=== PATIENT | female | born 1950 | race Hispanic/Latino ===

== ENCOUNTER 2017-06-12 14:22 | Emergency (ER) | payer OTHER ==
[2017-06-12] MEDS ORDERED: ALBUTEROL 2.5 MG/3 ML NEB SOL ONE (15:21)
[2017-06-12] MEDS ORDERED: IPRATROPIUM BROM 0.5MG/2.5ML ONE (15:21)
[2017-06-12 15:58] LABS: Absolute Lymphocytes (CBC) 1.6 K/uL (0.7-4.9); Absolute Monocytes 0.4 K/uL (0.1-1.3); Absolute Neutrophil 2.8 K/uL (1.8-8.0); Basophils % 0.6 % (0-1.3); Eosinophils % 2.7 % (0-4.4); Hematocrit 40.7 % (36.0-45.0); Lymphocytes % 32.3 % (15.3-44.8); MCH 30.6 pg (27.0-35.0); MCV 91.5 fL (80-100); MPV 8.4 fL (7.6-11.3); Monocytes % 8.8 % (3.3-12.3); RBC Red Blood Cell Count 4.44 M/uL (3.86-4.86)
[2017-06-12 16:00] LABS: Potassium 4.2 mEq/L (3.6-5.0)
--- NOTE | 2017-06-12 16:24 | RAD REPORT ---
EXAM DESCRIPTION: RAD - Chest Pa And Lat (2 Views) - 06/12/2017 4:02 pm CLINICAL HISTORY: Cough, shortness of breath COMPARISON: June 2015 TECHNIQUE: PA and lateral views of the chest were obtained. FINDINGS: The lungs are clear. Lung markings are similar to comparison. Heart size is normal and ce ntral vasculature is within normal limits. No pleural effusion or pneumothorax seen. No acute bony finding noted. No aortic abnormality. IMPRESSION: No acute cardiopulmonary process. No suspicious change from 2016.
--- NOTE | 2017-06-12 16:37 | ER ---
Nurse's Notes [facility] Name: Elizabeth Degroot Age: 67 yrs Sex: Female : 1950 Arrival Date: 06/12/2017 Time: 14:24 Bed 14 Private MD: Diagnosis: Bronchitis, not specified as acute or chronic Presentation: 06/12 14:46 Presenting complaint: Patient states: " I have been coughing and coughing and I can't ph stop." Pt reports productive cough that began last night and SOB, also reports sore throat, denies fever N/V/D. Transition of care: patient was not received from another setting of care. Onset of symptoms was June 12, 2017. Initial Sepsis Screen: Does the patient meet any 2 criteria? No. Patient's initial sepsis screen is negative. Does the patient have a suspected source of infection? No. Patient's initial sepsis screen is negative. Care prior to arrival: None. 14:46 Method Of Arrival: Ambulatory ph 14:46 Acuity: MARTIN 3 ph Historical: - Allergies: 14:49 NKDA; ph - PMHx: 14:49 Hyperlipidemia; Osteoporosis; ph - PSHx: 14:49 D \\T\\ C; Tubal ligation; ph - Immunization history:: Adult Immunizations unknown. - Social history:: Smoking status: Patient/guardian denies using tobacco. Screenin:57 Abuse screen: Denies threats or abuse. Denies injuries from another. Nutritional ph screening: No deficits noted. Tuberculosis screening: No symptoms or risk factors identified. Fall Risk None identified. Assessment: 15:00 General: Appears in no apparent distress. comfortable, obese, well groomed, Behavior is ph calm, cooperative, appropriate for age, Denies fever. Pain: Denies pain. Neuro: Level of Consciousness is awake, alert, obeys commands, Oriented to person, place, time, situation. Cardiovascular: Capillary refill < 3 seconds Patient's skin is warm and dry. Respiratory: Reports shortness of breath at rest cough that is productive, Airway is patent Respiratory effort is even, unlabored, Respiratory pattern is regular, symmetrical, Breath sounds with wheezes in right lower lobe. GI: No signs and/or symptoms were reported involving the gastrointestinal system. EENT: Reports pain when swallowing. Derm: Skin is intact, is healthy with good turgor, Skin is pink, warm \\T\\ dry. Musculoskeletal: Circulation, motion, and sensation intact. Range of motion: intact in all extremities. 16:00 Reassessment: Patient appears in no apparent distress at this time. Patient and/or ph family updated on plan of care and expected duration. Pain level reassessed. Patient is alert, oriented x 3, equal unlabored respirations, skin warm/dry/pink. Pt resting quietly, awaiting lab and CXR results. 17:11 Reassessment: Patient appears in no apparent distress at this time. Patient and/or ph family updated on plan of care and expected duration. Pain level reassessed. Patient is alert, oriented x 3, equal unlabored respirations, skin warm/dry/pink. Pt discharged home with family. Vital Signs: 14:48 BP 142 / 70; Pulse 78; Resp 22; Temp 97.8; Pulse Ox 93% on R/A; ph 16:15 BP 138 / 76; Pulse 74; Resp 18; Temp 98.1; Pulse Ox 94% on R/A; ph 17:00 BP 142 / 67; Pulse 72; Resp 18; Temp 97.4(TE); Pulse Ox 94% on R/A; ph ED Course: 14:24 Patient arrived in ED. as 14:46 Rehana Matthews, VALERIE is Primary Nurse. ph 14:47 Triage completed. ph 14:51 [facility]ens[facility]-C [facility]. kb 14:51 James Turner MD is Attending Physician. kb 14:52 Arm band placed on. ph 15:32 Initial lab(s) drawn, by wa, sent to lab. Inserted saline lock: 22 gauge in right mh5 forearm, using aseptic technique. Blood collected. 15:33 Group A Streptococcus Rapid Sc Sent. mh5 15:33 Strep Sent. mh5 15:33 Basic Metabolic Panel Sent. 5 15:33 CBC with Diff Sent. mh5 15:34 Strep swab sent to lab. mh5 15:56 Patient moved to radiology via wheelchair. mh1 15:58 Patient has correct armband on for positive identification. Placed in gown. Bed in low ph position. Call light in reach. Side rails up X 1. Pulse ox on. NIBP on. Warm blanket given. 15:58 No provider procedures requiring assistance completed. ph 16:01 X-ray completed. Patient tolerated procedure well. Patient moved back from radiology. 1 16:01 Chest Pa And Lat (2 Views) XRAY In Process Unspecified. EDMS 17:12 IV discontinued, intact, bleeding controlled, No redness/swelling at site. Pressure ph dressing applied. Administered Medications: 15:35 Drug: DuoNeb (3:1) (2.5 mg - 0.5 mg) 3 ml Route: Nebulizer; ph 16:30 Follow up: Response: No adverse reaction ph Outcome: 16:37 Discharge ordered by . monalisa 17:12 Discharged to home ambulatory, with family. ph 17:12 Condition: good 17:12 Discharge instructions given to patient, Instructed on discharge instructions, follow up and referral plans. medication usage, Demonstrated understanding of instructions, follow-up care, medications, Prescriptions given X 2. 17:13 Patient left the ED. Signatures: Dispatcher [employer] EDOH Ivett Hensley, QUINTONC HOGSHEAD HAND-Mary Dalton 1 Carrol Townsend Patricia, RN RN Jonna Townsend [facility]
--- NOTE | 2017-06-12 16:37 | EDPHYS ---
Physician Documentation [facility] Name: Elizabeth Degroot Age: 67 yrs Sex: Female : 1950 Arrival Date: 06/12/2017 Time: 14:24 Bed 14 Private MD: ED Physician James Turner HPI: 06/12 15:23 This 67 yrs old Female presents to ER via Ambulatory with complaints of Cough. kb 15:23 The patient or guardian reports cough, that is intermittent, described as mild, with kb productive sputum, that is white, difficulty breathing. Onset: The symptoms/episode began/occurred 2 day(s) ago. Severity of symptoms: At their worst the symptoms were mild, moderate, in the emergency department the symptoms are unchanged. Modifying factors: The symptoms are alleviated by nothing, the symptoms are aggravated by nothing. Associated signs and symptoms: Pertinent positives: sore throat, Pertinent negatives: chest pain, diarrhea, ear ache, fever, nausea, rhinorrhea, vomiting. The patient has not experienced similar symptoms in the past. The patient has not recently seen a physician. Pt reports cough for 2 days, worse at night. Historical: - Allergies: 14:49 NKDA; ph - PMHx: 14:49 Hyperlipidemia; Osteoporosis; ph - PSHx: 14:49 D \T\ C; Tubal ligation; ph - Immunization history:: Adult Immunizations unknown. - Social history:: Smoking status: Patient/guardian denies using tobacco. ROS: 15:22 Cardiovascular: Negative for chest pain, palpitations, and edema, Abdomen/GI: Negative kb for abdominal pain, nausea, vomiting, diarrhea, and constipation, Back: Negative for injury and pain, MS/Extremity: Negative for injury and deformity, Skin: Negative for injury, rash, and discoloration, Neuro: Negative for headache, weakness, numbness, tingling, and seizure. 15:22 Constitutional: Positive for chills, Negative for body aches, fatigue, fever, malaise, poor PO intake, weight loss. 15:22 Respiratory: Positive for cough, with white sputum, shortness of breath, Negative for dyspnea on exertion, hemoptysis, orthopnea, pleurisy, wheezing. Exam: 15:21 Constitutional: This is a well developed, well nourished patient who is awake, alert, kb and in no acute distress. Head/Face: Normocephalic, atraumatic. Chest/axilla: Normal chest wall appearance and motion. Nontender with no deformity. No lesions are appreciated. Cardiovascular: Regular rate and rhythm with a normal S1 and S2. No gallops, murmurs, or rubs. Normal PMI, no JVD. No pulse deficits. Abdomen/GI: Soft, non-tender, with normal bowel sounds. No distension or tympany. No guarding or rebound. No evidence of tenderness throughout. Skin: Warm, dry with normal turgor. Normal color with no rashes, no lesions, and no evidence of cellulitis. MS/ Extremity: Pulses equal, no cyanosis. Neurovascular intact. Full, normal range of motion. Neuro: Awake and alert, GCS 15, oriented to person, place, time, and situation. Cranial nerves II-XII grossly intact. Motor strength 5/5 in all extremities. Sensory grossly intact. Cerebellar exam normal. Normal gait. 15:21 Respiratory: the patient does not display signs of respiratory distress, Respirations: normal, Breath sounds: wheezing: expiratory that is mild, is heard in the right lower lobe. Vital Signs: 14:48 BP 142 / 70; Pulse 78; Resp 22; Temp 97.8; Pulse Ox 93% on R/A; ph 16:15 BP 138 / 76; Pulse 74; Resp 18; Temp 98.1; Pulse Ox 94% on R/A; ph 17:00 BP 142 / 67; Pulse 72; Resp 18; Temp 97.4(TE); Pulse Ox 94% on R/A; ph MDM: 15:08 Patient medically screened. kb 15:21 Data reviewed: vital signs, nurses notes. Data interpreted: Pulse oximetry: on room air kb is 93 %. Interpretation: acceptable. 16:30 Counseling: I had a detailed discussion with the patient and/or guardian regarding: the kb historical points, exam findings, and any diagnostic results supporting the discharge/admit diagnosis, lab results, radiology results, the need for outpatient follow up, a family practitioner, to return to the emergency department if symptoms worsen or persist or if there are any questions or concerns that arise at home. 06/12 15:12 Order name: CBC with Diff; Complete Time: 16:02 kb 06/12 15:12 Order name: Basic Metabolic Panel; Complete Time: 16:01 kb 06/12 15:12 Order name: Chest Pa And Lat (2 Views) XRAY; Complete Time: 16:30 kb 06/12 15:23 Order name: Strep kb 06/12 15:23 Order name: Group A Streptococcus Rapid Sc; Complete Time: 16:23 EDUT 06/12 16:23 Order name: Throat Culture EDUT 06/12 15:12 Order name: IV Start; Complete Time: 15:33 kb Administered Medications: 15:35 Drug: DuoNeb (3:1) (2.5 mg - 0.5 mg) 3 ml Route: Nebulizer; ph 16:30 Follow up: Response: No adverse reaction ph Disposition: 06/12/17 16:37 Discharged to Home. Impression: Bronchitis, not specified as acute or chronic. - Condition is Stable. - Discharge Instructions: Acute Bronchitis, [id number]. - Prescriptions for Tessalon Perles 100 mg Oral Capsule - take 1 capsule by ORAL route every 8 hours As needed; 15 capsule. Albuterol Sulfate 90 mcg/actuation - inhale 1-2 puff by INHALATION route every 4-6 hours; 1 Inhaler. - Medication Reconciliation Form, Thank You Letter, Antibiotic Education, Prescription Opioid Use form. - Follow up: Emergency Department; When: As needed; Reason: Worsening of condition. Follow up: Private Physician; When: 2 - 3 days; Reason: Recheck today's complaints, Continuance of care, Re-evaluation by your physician. Addendum: 06/16/2017 19:13 Co-signature as Attending Physician, James Turner MD. g s Signatures: Dispatcher [employer] Ivett [place], WYATT MALCOLM-Rehana Barnes RN RN James Viramontes MD MD Corrections: (The following items were deleted from the chart) 06/12 17:13 16:37 06/12/2017 16:37 Discharged to Home. Impression: Bronchitis, not specified as ph acute or chronic. Condition is Stable. Discharge Instructions: Acute Bronchitis, [id number]. Prescriptions for Tessalon Perles 100 mg Oral Capsule - take 1 capsule by ORAL route every 8 hours As needed; 15 capsule, Albuterol Sulfate 90 mcg/actuation - inhale 1-2 puff by INHALATION route every 4-6 hours; 1 Inhaler. and Forms are Medication Reconciliation Form, Thank You Letter, Antibiotic Education, Prescription Opioid Use. Follow up: Emergency Department; When: As needed; Reason: Worsening of condition. Follow up: Private Physician; When: 2 - 3 days; Reason: Recheck today's complaints, Continuance of care, Re-evaluation by your physician. kb
[2017-06-12 17:30] VITALS: BP 138/76; TEMP 98.1; O2SAT 94
== END 2017-06-12 17:13 | disposition home or self-care (01) ==
LOC: ER 14:22
DX: J40 Bronchitis, not specified as acute or chronic (principal)
CPT/HCPCS: 36415; 71046; 80048; 85025; 87070; 87081; 94640; 99284

== ENCOUNTER 2017-10-27 17:42 | Emergency (ER) | payer OTHER ==
[2017-10-27] MEDS ORDERED: HYDROCODONE/APAP 5/325 MG TAB ONE (18:15)
--- NOTE | 2017-10-27 19:38 | RAD REPORT ---
EXAM DESCRIPTION: Van Quinones Left10/27/2017 6:51 pm CLINICAL HISTORY: Left leg pain status post fall FINDINGS: An oblique nondisplaced fracture of the lateral malleolus is suspected best seen on the la teral view. Marked soft tissue swelling is noted. No dislocation is seen
--- NOTE | 2017-10-27 19:38 | RAD REPORT ---
EXAM DESCRIPTION: RAD - Ankle Left 3 View -10/27/2017 6:51 pm CLINICAL HISTORY: Left ankle pain status fall FINDINGS: An oblique nondisplaced fracture of the lateral malleolus is suspected best seen on the la teral view. Marked soft tissue swelling is noted. No dislocation is seen
--- NOTE | 2017-10-27 19:40 | RAD REPORT ---
EXAM DESCRIPTION: RAD - Foot Left 3 View - 10/27/2017 6:51 pm CLINICAL HISTORY: Left Foot pain status post fall FINDINGS: An oblique nondisplaced fracture of the lateral malleolus is suspected best seen on the la teral view. Marked soft tissue swelling is noted. No dislocation is seen
--- NOTE | 2017-10-27 19:57 | ER ---
Nurse's Notes [facility] Name: Elizabeth Degroot Age: 67 yrs Sex: Female : 1950 Arrival Date: 10/27/2017 Time: 17:44 Bed 18 Private MD: Diagnosis: Left Distal Fibular Fracture Presentation: 10/27 17:56 Presenting complaint: Patient states: tripped on steps in garage, rolled left ankle, iw fell to left knee. Transition of care: patient was not received from another setting of care. Onset of symptoms was October 27, 2017. Risk Assessment: Do you want to hurt yourself or someone else? Patient reports no desire to harm self or others. Initial Sepsis Screen: Does the patient meet any 2 criteria? No. Patient's initial sepsis screen is negative. Does the patient have a suspected source of infection? No. Patient's initial sepsis screen is negative. Care prior to arrival: None. 17:56 Method Of Arrival: Wheelchair iw 17:56 Acuity: MARTIN 4 iw Historical: - Allergies: 18:00 NKDA; iw - PMHx: 18:00 Hyperlipidemia; Osteoporosis; iw - PSHx: 18:00 D \T\ C; Tubal ligation; iw - Immunization history:: Adult Immunizations up to date. - Social history:: Smoking status: Patient/guardian denies using tobacco. - Ebola Screening: : Patient negative for fever greater than or equal to 101.5 degrees Fahrenheit, and additional compatible Ebola Virus Disease symptoms Patient denies exposure to infectious person Patient denies travel to an Ebola-affected area in the 21 days before illness onset No symptoms or risks identified at this time. Screenin:04 Abuse screen: Denies threats or abuse. Nutritional screening: No deficits noted. em Tuberculosis screening: No symptoms or risk factors identified. Fall Risk None identified. Assessment: 18:04 General: Appears in no apparent distress. Behavior is calm, cooperative. Pain: iw Complains of pain in left lateral malleolus Pain currently is 8 out of 10 on a pain scale. Neuro: Level of Consciousness is awake, alert, obeys commands, Oriented to person, place, time, situation, Moves all extremities. Full function. Musculoskeletal: Range of motion: limited in left ankle. 19:10 General: Appears in no apparent distress. comfortable, Behavior is calm, cooperative, ao appropriate for age. Pain: Denies pain. Neuro: Level of Consciousness is awake, alert, obeys commands, Oriented to person, place, time, situation, Moves all extremities. Full function Speech is normal. Cardiovascular: Heart tones S1 S2 Capillary refill < 3 seconds Patient's skin is warm and dry. Respiratory: Airway is patent Respiratory effort is even, unlabored, Respiratory pattern is regular, symmetrical. GI: Abdomen is obese. : No signs and/or symptoms were reported regarding the genitourinary system. EENT: No signs and/or symptoms were reported regarding the EENT system. Derm: Skin is intact, Skin is pink, warm \T\ dry. normal, Skin temperature is warm. Musculoskeletal: Circulation, motion, and sensation intact. Range of motion: limited in left ankle. Vital Signs: 18:00 BP 163 / 98; Pulse 62; Resp 16; Temp 98.7; Pulse Ox 96% on R/A; Pain 8/10; iw 19:30 BP 148 / 50; Pulse 64; Resp 16; Pulse Ox 98% on R/A; ao ED Course: 17:44 Patient arrived in ED. rg4 17:54 Bud Mckeon PA is PHCP. jmm 17:54 Alfredito Valle MD is Attending Physician. [facility] 18:00 Triage completed. iw 18:00 Arm band placed on. iw 18:02 Cj Daugherty LVN is Primary Nurse. em 18:04 Patient has correct armband on for positive identification. Bed in low position. Call em light in reach. Adult w/ patient. 18:04 No provider procedures requiring assistance completed. Patient did not have IV access em during this emergency room visit. 18:51 Tib Fib Left XRAY In Process Unspecified. EDMS 18:51 Ankle Left 3 View XRAY In Process Unspecified. EDMS 18:51 Foot Left 3 View XRAY In Process Unspecified. EDMS 19:56 Markell Mac MD is Referral Physician. [facility] Administered Medications: 18:13 Drug: [place] 5 mg-325 mg 1 tabs Route: PO; em 20:27 Follow up: Response: No adverse reaction ao Outcome: 19:56 Discharge ordered by . jmm 20:26 Discharged to home ambulatory. ao 20:26 Condition: stable 20:26 Discharge instructions given to patient, family, Instructed on discharge instructions, follow up and referral plans. Demonstrated understanding of instructions, follow-up care, medications, Prescriptions given X 1. 20:27 Patient left the ED. ao Signatures: Dispatcher [employer] Bud Duron PA PA jmm Munoz, Edgar, TECHNICIAN AUTOMATED EQUIPMENT TECHNICIAN AUTOMATED EQUIPMENT Tamara Padilla, RN RN Jacek Abebe RN RN Noris Maxwell rg4
--- NOTE | 2017-10-27 19:57 | EDPHYS ---
Physician Documentation [facility] Name: Elizabeth Degroot Age: 67 yrs Sex: Female : 1950 Arrival Date: 10/27/2017 Time: 17:44 Bed 18 Private MD: ED Physician Alfredito Valle HPI: 10/27 18:01 This 67 yrs old Female presents to ER via Wheelchair with complaints of Ankle jmm Injury. 18:01 The patient presents with an injury, pain. The complaints affect the left ankle. Onset: jmm The symptoms/episode began/occurred acutely, just prior to arrival. Associated signs and symptoms: Pertinent positives: swelling. Modifying factors: The symptoms are alleviated by elevation of extremity, the symptoms are aggravated by weight bearing. This is a 67 year old female with a history of osteoporosis, HLP, that presents to the ED with left ankle pain and swelling following a fall which occurred earlier today. Patient states she tripped on a step in her garage rolling her left ankle and landing on her left knee. Patient denies other injury. . Historical: - Allergies: 18:00 NKDA; iw - PMHx: 18:00 Hyperlipidemia; Osteoporosis; iw - PSHx: 18:00 D \T\ C; Tubal ligation; iw - Immunization history:: Adult Immunizations up to date. - Social history:: Smoking status: Patient/guardian denies using tobacco. - Ebola Screening: : Patient negative for fever greater than or equal to 101.5 degrees Fahrenheit, and additional compatible Ebola Virus Disease symptoms Patient denies exposure to infectious person Patient denies travel to an Ebola-affected area in the 21 days before illness onset No symptoms or risks identified at this time. ROS: 18:01 Constitutional: Negative for fever, chills, and weight loss, Cardiovascular: Negative jmm for chest pain, palpitations, and edema, Respiratory: Negative for shortness of breath, cough, wheezing, and pleuritic chest pain. 18:01 MS/extremity: Positive for pain, swelling. 18:01 All other systems are negative. Exam: 18:01 Head/Face: atraumatic. Eyes: EOMI, no conjunctival erythema appreciated Chest/axilla: jmm Normal chest wall appearance and motion. Cardiovascular: Regular rate and rhythm. No edema appreciated Respiratory: Normal respirations, no respiratory distress appreciated 18:01 Constitutional: The patient appears in no acute distress, alert, awake. 18:01 Musculoskeletal/extremity: abrasion noted to the superior tibial region, swelling is noted to the left lateral malleolus, full dorsalis pedis pulse, compartments are soft, NVI. 18:01 Skin: abrasion noted to the left lower leg. 18:01 Neuro: Orientation: is normal, Mentation: is normal, Memory: is normal. 18:01 Psych: Behavior/mood is pleasant, cooperative. Vital Signs: 18:00 BP 163 / 98; Pulse 62; Resp 16; Temp 98.7; Pulse Ox 96% on R/A; Pain 8/10; iw 19:30 BP 148 / 50; Pulse 64; Resp 16; Pulse Ox 98% on R/A; ao Procedures: 20:30 Splinting: Splint applied to left ankle using Ortho 3D boot, applied by nurse. Examined jm by me, post splint application: neurovascular intact, 2+ distal pulses palpable, Patient tolerated well. MDM: 17:54 Patient medically screened. [facility] 19:55 Data reviewed: vital signs, nurses notes. Counseling: I had a detailed discussion with [facility] the patient and/or guardian regarding: the historical points, exam findings, and any diagnostic results supporting the discharge/admit diagnosis, radiology results, the need for outpatient follow up, to return to the emergency department if symptoms worsen or persist or if there are any questions or concerns that arise at home. 10/27 17:59 Order name: Tib Fib Left XRAY; Complete Time: 19:44 [facility] 10/27 17:59 Order name: Ankle Left 3 View XRAY; Complete Time: 19:44 [facility] 10/27 17:59 Order name: Foot Left 3 View XRAY; Complete Time: 19:44 [facility] 10/27 19:16 Order name: Ankle Splint: Orthoglass: Posterior; Complete Time: 19:35 [facility] Administered Medications: 18:13 Drug: [place] 5 mg-325 mg 1 tabs Route: PO; em 20:27 Follow up: Response: No adverse reaction ao Disposition: 10/27/17 19:56 Discharged to Home. Impression: Left Distal Fibular Fracture. - Condition is Stable. - Discharge Instructions: Ankle Fracture. - Prescriptions for Tylenol- Codeine #3 300-30 mg Oral Tablet - take 1 tablet by ORAL route every 6 hours As needed; 12 tablet. - Medication Reconciliation Form, Thank You Letter, Antibiotic Education, Prescription Opioid Use form. - Follow up: Markell Mac MD; When: 1 - 2 days; Reason: Recheck today's complaints, Continuance of care, Re-evaluation by your physician. Addendum: 10/30/2017 07:26 Co-signature as Attending Physician, Alfredito Valle MD I agree with the assessment and c knox plan of care. Signatures: Dispatcher [employer] EDAlfredito Tobias MD MD cha Mickail, Joel, PA PA daym Cj Daugherty, SKOOG MACHINE OPERATOR SKOOG MACHINE OPERATOR em Tamara Burk, RN RN iw Jacek Miller RN RN ao Corrections: (The following items were deleted from the chart) 10/27 20:27 19:56 10/27/2017 19:56 Discharged to Home. Impression: Left Distal Fibular Fracture. ao Condition is Stable. Forms are Medication Reconciliation Form, Thank You Letter, Antibiotic Education, Prescription Opioid Use. Follow up: Markell Mac; When: 1 - 2 days; Reason: Recheck today's complaints, Continuance of care, Re-evaluation by your physician. [facility]
[2017-10-27 20:30] VITALS: TEMP 98.7
[2017-10-27 20:31] VITALS: BP 148/50; O2SAT 98
== END 2017-10-27 20:27 | disposition home or self-care (01) ==
LOC: ER 17:42
PROC: 2W3RX1Z Immobilization of Left Lower Leg using Splint (ICD-10-PCS; principal; 2017-10-27)
DX: S82.832A Other fracture of upper and lower end of left fibula, initial encounter for closed fracture (principal); M81.0 Age-related osteoporosis without current pathological fracture; W18.09XA Striking against other object with subsequent fall, initial encounter; Y93.89 Activity, other specified; Y92.008 Other place in unspecified non-institutional (private) residence as the place of occurrence of the external cause
CPT/HCPCS: 99283

== ENCOUNTER 2019-01-22 11:57 | Emergency (ER) | payer OTHER ==
[2019-01-22] MEDS ORDERED: MAGNESIUM CITRATE 300 ML BOT ONE (12:41)
[2019-01-22 12:51] LABS: Absolute Lymphocytes (CBC) 2.2 K/uL (0.7-4.9); Basophils % 0.5 % (0-1.3); Hematocrit 39.9 % (36.0-45.0); Lymphocytes % 42.1 % (15.3-44.8); MPV 8.8 fL (7.6-11.3); RBC Red Blood Cell Count 4.32 M/uL (3.86-4.86)
[2019-01-22 13:06] LABS: Albumin 3.9 g/dL (3.4-5.0); Bilirubin Total 0.4 mg/dL (0.2-1.0); Potassium 3.6 mmol/L (3.5-5.1); Protein, Total 8.8 g/dL (6.4-8.2)
--- NOTE | 2019-01-22 13:29 | EDPHYS ---
Physician Documentation [facility] Name: Elizabeth Degroot Age: 69 yrs Sex: Female : 1950 Arrival Date: 01/22/2019 Time: 11:59 Bed 15 Private MD: ED Physician Nikolas Salomon HPI: 01/22 12:15 This 69 yrs old Female presents to ER via Ambulatory with complaints of ps1 Constipation, Abdominal Pain. 12:15 patient went to doctor today. No mention of abdominal pain. Went home and told daughter ps1 that she was unable to use the bathroom in 3 days. Did not try any medications prior to coming to ED. States that she has significant pain with attempting to use the bathroom. Blood pressure elevated after. Didn't want daughter to give her enema. . Historical: - Allergies: 12:08 NKDA; hb - Home Meds: 12:08 atorvastatin 20 mg Oral tab 2 tabs once daily for Hypercholesterolemia [Active]; hb - PMHx: 12:08 Hyperlipidemia; Osteoporosis; hb - PSHx: 12:08 D \T\ C; Tubal ligation; hb - Immunization history:: Adult Immunizations up to date. - Social history:: Smoking status: Patient/guardian denies using tobacco. - Ebola Screening: : No symptoms or risks identified at this time. ROS: 12:15 Constitutional: Negative for fever, chills, and weight loss, Eyes: Negative for injury, ps1 pain, redness, and discharge, Cardiovascular: Negative for chest pain, palpitations, and edema, Respiratory: Negative for shortness of breath, cough, wheezing, and pleuritic chest pain, MS/Extremity: Negative for injury and deformity, Skin: Negative for injury, rash, and discoloration, Neuro: Negative for headache, weakness, numbness, tingling, and seizure. 12:15 Abdomen/GI: Positive for constipation, abdominal cramps. Exam: 12:15 Constitutional: This is a well developed, well nourished patient who is awake, alert, ps1 and in no acute distress. Head/Face: Normocephalic, atraumatic. Eyes: Pupils equal round and reactive to light, extra-ocular motions intact. Lids and lashes normal. Conjunctiva and sclera are non-icteric and not injected. Chest/axilla: Normal chest wall appearance and motion. Nontender with no deformity. No lesions are appreciated. Cardiovascular: Regular rate and rhythm. No gallops, murmurs, or rubs. Normal PMI, no JVD. No pulse deficits. Respiratory: Lungs have equal breath sounds bilaterally, clear to auscultation and percussion. No rales, rhonchi or wheezes noted. No increased work of breathing, no retractions or nasal flaring. Abdomen/GI: Soft, non-tender, with normal bowel sounds. No distension or tympany. No guarding or rebound. No evidence of tenderness throughout. MS/ Extremity: Pulses equal, no cyanosis. Neurovascular intact. Full, normal range of motion. Neuro: Awake and alert, GCS 15, oriented to person, place, time, and situation. Cranial nerves II-XII grossly intact. Sensory grossly intact. Psych: Awake, alert, with orientation to person, place and time. Behavior, mood, and affect are within normal limits. Vital Signs: 12:08 BP 181 / 73; Pulse 83; Resp 16; Temp 97.8; Pulse Ox 98% on R/A; Weight 84.37 kg; Height hb 5 ft. 3 in. (160.02 cm); Pain 3/10; 13:00 BP 168 / 74; Pulse 87; Resp 17; Pulse Ox 99% on R/A; rb1 14:00 BP 165 / 71; Pulse 81; Resp 17; Pulse Ox 100% on R/A; Pain 3/10; rb1 12:08 Body Mass Index 32.95 (84.37 kg, 160.02 cm) hb MDM: 12:12 Patient medically screened. ps1 13:28 Differential diagnosis: non-specific abd pain, constipation, slow motility, ps1 hypertension, and others. Data reviewed: vital signs, nurses notes, lab test result(s), and as a result, I will discharge patient. Counseling: I had a detailed discussion with the patient and/or guardian regarding: the historical points, exam findings, and any diagnostic results supporting the discharge/admit diagnosis, the presence of at least one elevated blood pressure reading (>120/80) during this emergency department visit, lab results, the need for outpatient follow up, to return to the emergency department if symptoms worsen or persist or if there are any questions or concerns that arise at home. 01/22 12:14 Order name: CBC with Diff; Complete Time: 13:00 ps1 01/22 12:14 Order name: CMP; Complete Time: 13:09 ps1 Administered Medications: 12:45 Drug: Magnesium Citrate Liquid 300 ml Route: PO; rb1 13:05 Follow up: Response: No adverse reaction rb1 13:43 Drug: Glycerin (Adult) Suppository 1 supp Route: CA; rb1 14:05 Follow up: Response: No adverse reaction rb1 Disposition: 01/22/19 13:27 Discharged to Home. Impression: Constipation, unspecified. - Condition is Stable. - Discharge Instructions: Constipation, Adult, High-Fiber Diet. - Prescriptions for Colace 100 mg Oral Tablet - take 1 tablet by ORAL route every 12 hours; 14 tablet. - Medication Reconciliation Form, Thank You Letter, Antibiotic Education, Prescription Opioid Use form. - Follow up: Emergency Department; When: As needed; Reason: Fever > 102 F, Worsening of condition. Follow up: Private Physician; When: As needed; Reason: Further diagnostic work-up, Recheck today's complaints, Continuance of care, Re-evaluation by your physician. - Problem is new. - Symptoms have improved. Signatures: Dispatcher [employer] EDMS Jazmyne Perez RN RN rb1 Melina Haas RN RN hb Nikolas Salomon MD MD ps1 Corrections: (The following items were deleted from the chart) 14:11 13:27 01/22/2019 13:27 Discharged to Home. Impression: Constipation, unspecified. rb1 Condition is Stable. Forms are Medication Reconciliation Form, Thank You Letter, Antibiotic Education, Prescription Opioid Use. Follow up: Emergency Department; When: As needed; Reason: Fever > 102 F, Worsening of condition. Follow up: Private Physician; When: As needed; Reason: Further diagnostic work-up, Recheck today's complaints, Continuance of care, Re-evaluation by your physician. Problem is new. Symptoms have improved. ps1
--- NOTE | 2019-01-22 13:29 | ER ---
Nurse's Notes [facility] Name: Elizabeth Degroot Age: 69 yrs Sex: Female : 1950 Arrival Date: 01/22/2019 Time: 11:59 Bed 15 Private MD: Diagnosis: Constipation, unspecified Presentation: 01/22 12:07 Presenting complaint: Constipation and abdominal cramping x 3 days. Transition of care: hb patient was not received from another setting of care. Onset of symptoms was January 19, 2019. Risk Assessment: Do you want to hurt yourself or someone else? Patient reports no desire to harm self or others. Initial Sepsis Screen: Does the patient meet any 2 criteria? No. Patient's initial sepsis screen is negative. Does the patient have a suspected source of infection? No. Patient's initial sepsis screen is negative. Care prior to arrival: None. 12:07 Method Of Arrival: Ambulatory 12:07 Acuity: MARTIN 3 hb Historical: - Allergies: 12:08 NKDA; hb - Home Meds: 12:08 atorvastatin 20 mg Oral tab 2 tabs once daily for Hypercholesterolemia [Active]; hb - PMHx: 12:08 Hyperlipidemia; Osteoporosis; hb - PSHx: 12:08 D \T\ C; Tubal ligation; hb - Immunization history:: Adult Immunizations up to date. - Social history:: Smoking status: Patient/guardian denies using tobacco. - Ebola Screening: : No symptoms or risks identified at this time. Screenin:08 Abuse screen: Denies threats or abuse. Nutritional screening: No deficits noted. rb1 Tuberculosis screening: No symptoms or risk factors identified. Fall Risk None identified. Assessment: 12:08 General: Appears in no apparent distress. comfortable, Behavior is calm, cooperative, rb1 Denies fever. Pain: Complains of pain in abdomen Pain currently is 5 out of 10 on a pain scale. Pain began 2-3 days ago. Neuro: Level of Consciousness is awake, alert, obeys commands, Oriented to person, place, time, situation. Cardiovascular: Capillary refill < 3 seconds is brisk in bilateral fingers. Respiratory: Airway is patent Respiratory effort is even, unlabored, Respiratory pattern is regular, symmetrical. GI: Reports constipation. : No signs and/or symptoms were reported regarding the genitourinary system. Derm: Skin is pink, warm \T\ dry. 12:08 GI: Bowel sounds present X 4 quads. Abd is soft and non tender X 4 quads. rb1 12:45 Reassessment: Faxed pharmacy fot the Glycerin Suppository. rb1 13:28 Reassessment: Spoke to Antelmo in pharmacy for an update on the suppository. He is going rb1 to make sure it's on it's way here. 14:00 Reassessment: Patient appears in no apparent distress at this time. Patient and/or rb1 family updated on plan of care and expected duration. Pain level reassessed. Patient is alert, oriented x 3, equal unlabored respirations, skin warm/dry/pink. Pt. has not had a bowel movement. Provider notified. Received verbal order to proceed with the discharge. Vital Signs: 12:08 BP 181 / 73; Pulse 83; Resp 16; Temp 97.8; Pulse Ox 98% on R/A; Weight 84.37 kg; Height hb 5 ft. 3 in. (160.02 cm); Pain 3/10; 13:00 BP 168 / 74; Pulse 87; Resp 17; Pulse Ox 99% on R/A; rb1 14:00 BP 165 / 71; Pulse 81; Resp 17; Pulse Ox 100% on R/A; Pain 3/10; rb1 12:08 Body Mass Index 32.95 (84.37 kg, 160.02 cm) ED Course: 11:59 Patient arrived in ED. as 12:05 Nikolas Salomon MD is Attending Physician. [facility] 12:07 Triage completed. 12:08 Arm band placed on. EKG completed in triage. Results shown to MD. EKG completed in triage. Results shown to MD. 12:08 Patient has correct armband on for positive identification. Bed in low position. Call [facility] light in reach. Side rails up X 1. Pulse ox on. NIBP on. 12:29 Initial lab(s) drawn, by me, sent to lab. Inserted saline lock: 22 gauge in right 5 antecubital area, using aseptic technique. Blood collected. 12:29 CMP Sent. 5 12:30 CBC with Diff Sent. [facility] 12:32 Jazmyne Perez, RN is Primary Nurse. rb1 14:11 No provider procedures requiring assistance completed. IV discontinued, intact, rb1 bleeding controlled, No redness/swelling at site. Pressure dressing applied. Administered Medications: 12:45 Drug: Magnesium Citrate Liquid 300 ml Route: PO; rb1 13:05 Follow up: Response: No adverse reaction rb1 13:43 Drug: Glycerin (Adult) Suppository 1 supp Route: RI; rb1 14:05 Follow up: Response: No adverse reaction rb1 Outcome: 13:27 Discharge ordered by . ps1 14:11 Patient left the ED. rb1 14:11 Discharged to home ambulatory, with family. rb1 14:11 Condition: stable 14:11 Discharge instructions given to patient, Instructed on discharge instructions, follow up and referral plans. medication usage, Demonstrated understanding of instructions, follow-up care, medications, Prescriptions given X 1. Signatures: Carrol Townsend Rebecca, RN RN rb1 Melina Haas RN RN Jonna Townsend [facility] Nikolas Salomon MD MD ps1
[2019-01-22] MEDS ORDERED: GLYCERIN ADULT SUPP PR ONE (14:00)
[2019-01-22 17:29] VITALS: BP 181/73; TEMP 97.8; O2SAT 98
== END 2019-01-22 14:11 | disposition home or self-care (01) ==
LOC: ER 11:57
DX: K59.00 Constipation, unspecified (principal); E78.5 Hyperlipidemia, unspecified
CPT/HCPCS: 36415; 80053; 85025; 99284

== ENCOUNTER 2019-08-09 18:15 | Emergency (ER) | payer OTHER ==
--- NOTE | 2019-08-09 20:05 | RAD REPORT ---
EXAM DESCRIPTION: Elliott Single View08/09/2019 8:00 pm CLINICAL HISTORY: Fever COMPARISON: 2017 FINDINGS: The lungs appear clear of acute infiltrate. The heart is mildly enlarged IMPRESSION: No acute abnormalities displayed
[2019-08-09 20:32] LABS: Absolute Lymphocytes (CBC) 0.9 K/uL (0.7-4.9); Basophils % 0.4 % (0-1.3); Lymphocytes % 11.8 % (15.3-44.8); MPV 8.8 fL (7.6-11.3); RBC Red Blood Cell Count 4.44 M/uL (3.86-4.86)
[2019-08-09 20:50] LABS: Protime INR 1.01
[2019-08-09] MEDS ORDERED: ACETAMINOPHEN 500 MG TAB ONE (20:54)
[2019-08-09 21:03] LABS: Urine Blood TRACE (NEG); Urine Glucose NEGATIVE (NEG); Urine Protein 1+ (NEG); Urine Specific Gravity 1.025 (1.005-1.030)
[2019-08-09 21:08] LABS: ALT/SGPT 38 U/L (12-78); AST/SGOT 39 U/L (15-37); Alkaline Phosphatase 79 U/L (45-117); Amylase 56 U/L (25-115); BUN Blood Urea Nitrogen 12 mg/dL (7-18); Bicarbonate 27 mmol/L (21-32); Bilirubin Direct 0.1 mg/dL (0-0.2); Bilirubin Total 0.6 mg/dL (0.2-1.0); Creatine Phosphokinase 134 U/L (26-192); Ferritin 123.4 ng/mL (8-388); Glucose Level 109 mg/dL (74-106); Lipase 61 U/L (73-393); Potassium 3.9 mmol/L (3.5-5.1); Protein, Total 8.5 g/dL (6.4-8.2); Sodium Level 137 mmol/L (136-145); Troponin (Emerg Dept Use Only) < 0.02 ng/mL (0.0-0.045)
[2019-08-09 21:43] LABS: Calcium Oxalate Crystals- Ur FEW (NONE SEEN); Urine Bacteria <20 /HPF (<20); Urine Culture Reflex Order NOT NEEDED; Urine RBC <5 /HPF (NONE SEEN)
--- NOTE | 2019-08-09 21:50 | EDPHYS ---
Physician Documentation [facility] Name: Elizabeth Degroot Age: 69 yrs Sex: Female : 1950 Arrival Date: 08/09/2019 Time: 18:26 Bed 30 Private MD: ED Physician Alfredito Valle HPI: 08/08 20:35 This 69 yrs old Female presents to ER via EMS with complaints of Fever. jr8 20:35 The patient reports fever, with an emergency department temperature of 101.1 degrees jr8 Fahrenheit. Onset: The symptoms/episode began/occurred gradually, 2 day(s) ago. Modifying factors: The patient has had contact with sick daughter. Associated signs and symptoms: Pertinent positives: chills, cough, shortness of breath, sore throat. Severity of symptoms: At their worst the symptoms were moderate in the emergency department the symptoms are unchanged. The patient has not experienced similar symptoms in the past. The patient has not recently seen a physician. Stated that her daughter has COVID 19. Lives in same house as her. Stated that two days ago started with symptoms. Historical: - Allergies: 18:59 NKDA; iw - PMHx: 18:59 Hyperlipidemia; Osteoporosis; iw - PSHx: 18:59 D \T\ C; Tubal ligation; iw - Immunization history:: Adult Immunizations up to date. - Social history:: Smoking status: Reported history of juuling and/or vaping. ROS: 20:35 Eyes: Negative for injury, pain, redness, and discharge, Neck: Negative for injury, jr8 pain, and swelling, Cardiovascular: Negative for chest pain, palpitations, and edema, Abdomen/GI: Negative for abdominal pain, nausea, vomiting, diarrhea, and constipation, Back: Negative for injury and pain, MS/Extremity: Negative for injury and deformity, Skin: Negative for injury, rash, and discoloration, Neuro: Negative for headache, weakness, numbness, tingling, and seizure. 20:35 Constitutional: Positive for body aches, chills, fever, malaise. 20:35 ENT: Positive for sore throat. 20:35 Respiratory: Positive for cough, shortness of breath. Exam: 20:35 Eyes: Pupils equal round and reactive to light, extra-ocular motions intact. Lids and jr8 lashes normal. Conjunctiva and sclera are non-icteric and not injected. Cornea within normal limits. Periorbital areas with no swelling, redness, or edema. ENT: Nares patent. No nasal discharge, no septal abnormalities noted. Tympanic membranes are normal and external auditory canals are clear. Oropharynx with no redness, swelling, or masses, exudates, or evidence of obstruction, uvula midline. Mucous membranes moist. Neck: Trachea midline, no thyromegaly or masses palpated, and no cervical lymphadenopathy. Supple, full range of motion without nuchal rigidity, or vertebral point tenderness. No Meningismus. Cardiovascular: Regular rate and rhythm with a normal S1 and S2. No gallops, murmurs, or rubs. Normal PMI, no JVD. No pulse deficits. Respiratory: Lungs have equal breath sounds bilaterally, clear to auscultation and percussion. No rales, rhonchi or wheezes noted. No increased work of breathing, no retractions or nasal flaring. Abdomen/GI: Soft, non-tender, with normal bowel sounds. No distension or tympany. No guarding or rebound. No evidence of tenderness throughout. Back: No spinal tenderness. No costovertebral tenderness. Full range of motion. Skin: Warm, dry with normal turgor. Normal color with no rashes, no lesions, and no evidence of cellulitis. MS/ Extremity: Pulses equal, no cyanosis. Neurovascular intact. Full, normal range of motion. Neuro: Awake and alert, GCS 15, oriented to person, place, time, and situation. Cranial nerves II-XII grossly intact. Motor strength 5/5 in all extremities. Sensory grossly intact. Cerebellar exam normal. Normal gait. Vital Signs: 18:57 BP 141 / 85; Pulse 84; Resp 18 S; Temp 101.1; Pulse Ox 98% on R/A; iw 19:19 BP 127 / 68; Pulse 90; Resp 16; Pulse Ox 97% on R/A; Pain 0/10; ls4 MDM: 18:30 Patient medically screened. jr8 21:45 Data reviewed: vital signs, nurses notes, lab test result(s), EKG, radiologic studies, jr8 plain films, and as a result, I will discharge patient. Data interpreted: Pulse oximetry: on room air is 97 %. Interpretation: normal. Counseling: I had a detailed discussion with the patient and/or guardian regarding: the historical points, exam findings, and any diagnostic results supporting the discharge/admit diagnosis, lab results, radiology results, the need for outpatient follow up, a family practitioner, to return to the emergency department if symptoms worsen or persist or if there are any questions or concerns that arise at home. ED course: Patients fever decreased. Labs consistent with COVID 19 viral illness. No signs for systemic bacterial infection. Breath sounds clear. Oxygen saturation remains 97-98%. Will send home with prednisone and isolation precautions . 08/08 19:23 Order name: Urine Culture 08/08 19:23 Order name: Fibrinogen; Complete Time: 21:05 [facility] 08/08 19:23 Order name: C-Reactive Protein; Complete Time: :43 08/08 19:23 Order name: Amylase, Serum; Complete Time: 21:43 08/08 19:23 Order name: Basic Metabolic Panel; Complete Time: 21:43 08/08 19:23 Order name: Blood Culture Adult (2) 08/08 19:23 Order name: CBC with Diff; Complete Time: 20:39 08/08 19:23 Order name: CPK; Complete Time: 21:43 08/08 19:23 Order name: Lactate; Complete Time: 21:43 08/08 19:23 Order name: LFT's; Complete Time: 21:43 08/08 19:23 Order name: Lipase; Complete Time: 21:43 08/08 19:23 Order name: Procalcitonin; Complete Time: 21:43 08/08 19:23 Order name: Protime (+inr); Complete Time: 21:08/08 19:23 Order name: Ptt, Activated; Complete Time: 21: 08/08 19:23 Order name: Troponin (emerg Dept Use Only); Complete Time: 21:43 08/08 19:23 Order name: Urine Microscopic Only; Complete Time: 21:45 08/08 19:23 Order name: Chest Single View XRAY; Complete Time: 20:09 08/08 19:23 Order name: Cardiac monitoring; Complete Time: 19:45 08/08 19:23 Order name: IV Saline Lock - Large Bore; Complete Time: 19:45 [facility] 08/08 19:23 Order name: Labs collected and sent; Complete Time: 19:45 [facility] 08/08 19:23 Order name: O2 Per Protocol; Complete Time: 19:44 [facility] 08/08 19:23 Order name: O2 Sat Monitoring; Complete Time: 19:45 [facility] 08/08 19:23 Order name: Urine Dipstick-Ancillary (obtain specimen); Complete Time: 20:29 [facility] 08/08 19:23 Order name: Ferritin; Complete Time: 21:43 [facility] 08/08 19:24 Order name: Urine Culture [facility] 08/08 20:10 Order name: COVID-19 [facility] 08/08 20:44 Order name: Urine Dipstick--Ancillary (enter results); Complete Time: 21:05 tt3 Administered Medications: 20:50 Drug: Acetaminophen 1000 mg Route: PO; ls4 Disposition: 08/09 07:13 Co-signature as Attending Physician, Alfredito Valle MD I agree with the assessment and stan plan of care. Disposition: 08/09/19 21:50 Discharged to Home. Impression: SARS-associated coronavirus as the cause of diseases classified elsewhere. - Condition is Stable. - Discharge Instructions: COVID-19. - Prescriptions for prednisone 10 mg Oral tablet - take 1 tablet by ORAL route 2 times per day for 14 days; 28 tablet. - Medication Reconciliation Form, Thank You Letter, Antibiotic Education, Prescription Opioid Use form. - Follow up: Private Physician; When: As needed; Reason: Recheck today's complaints, Continuance of care, Re-evaluation by your physician. - Problem is new. - Symptoms have improved. Signatures: Dispatcher [employer] [facility] Markell Roberts RN RN sg Anderson, Corey, MD MD cha Williams, Irene, RN RN iw Roszak, Josh, PA PA jr8 Juli Bah RN RN ls4 Corrections: (The following items were deleted from the chart) 08/08 22:54 21:50 08/09/2019 21:50 Discharged to Home. Impression: SARS-associated coronavirus as sg the cause of diseases classified elsewhere. Condition is Stable. Forms are Medication Reconciliation Form, Thank You Letter, Antibiotic Education, Prescription Opioid Use. Follow up: Private Physician; When: As needed; Reason: Recheck today's complaints, Continuance of care, Re-evaluation by your physician. Problem is new. Symptoms have improved. jr8
--- NOTE | 2019-08-09 21:50 | ER ---
Nurse's Notes [facility] Name: Elizabeth Degroot Age: 69 yrs Sex: Female : 1950 Arrival Date: 08/09/2019 Time: 18:26 Bed 30 Private MD: Diagnosis: SARS-associated coronavirus as the cause of diseases classified elsewhere Presentation: 08/08 18:57 Chief complaint: Patient states: daughter tested positive for COVID, today pt started iw running fever and felt like she was breathing fast and she called 911 because maybe she has COVID. Coronavirus screen: Surgical mask placed on patient. Patient moved to private room, placed in contact and droplet isolation with eye protection until further assessment. Patient denies a cough. Patient reports shortness of breath or difficulty breathing. Patient reports a measured and/or subjective temperature greater than 100.4F. Patient denies travel on a cruise ship or to a country the [facility] currently lists as an affected area. Patient reports contact with known and/or suspected case of COVID-19. Ebola Screen: Patient negative for fever greater than or equal to 101.5 degrees Fahrenheit, and additional compatible Ebola Virus Disease symptoms Patient denies exposure to infectious person. Patient denies travel to an Ebola-affected area in the 21 days before illness onset. No symptoms or risks identified at this time. Initial Sepsis Screen: Does the patient meet any 2 criteria? No. Patient's initial sepsis screen is negative. Does the patient have a suspected source of infection? No. Patient's initial sepsis screen is negative. Risk Assessment: Do you want to hurt yourself or someone else? Patient reports no desire to harm self or others. Onset of symptoms was August 09, 2019. 18:57 Method Of Arrival: EMS: [facility] iw 18:57 Acuity: MARTIN 3 iw Triage Assessment: 19:03 General: Appears in no apparent distress. comfortable, Behavior is calm, cooperative, ls4 Smells of. Neuro: No deficits noted. Cardiovascular: No deficits noted. Respiratory: Reports cough that is non-productive, dry, hacking, persistent Airway is patent Respiratory effort is even, unlabored, Respiratory pattern is regular. Historical: - Allergies: 18:59 NKDA; iw - PMHx: 18:59 Hyperlipidemia; Osteoporosis; iw - PSHx: 18:59 D \T\ C; Tubal ligation; iw - Immunization history:: Adult Immunizations up to date. - Social history:: Smoking status: Reported history of juuling and/or vaping. Screenin:10 Abuse screen: Denies threats or abuse. Denies injuries from another. Nutritional ls4 screening: No deficits noted. Tuberculosis screening: No symptoms or risk factors identified. Fall Risk None identified. Assessment: 19:19 General: Appears in no apparent distress. uncomfortable. Pain: Denies pain. Neuro: ls4 Level of Consciousness is awake, alert, obeys commands. Cardiovascular: Denies chest pain, diaphoresis, vomiting. Respiratory: Airway is patent Respiratory effort is even, unlabored, Respiratory pattern is regular. GI: No deficits noted. No signs and/or symptoms were reported involving the gastrointestinal system. : No deficits noted. No signs and/or symptoms were reported regarding the genitourinary system. Derm: No deficits noted. No signs and/or symptoms reported regarding the dermatologic system. Musculoskeletal: No deficits noted. No signs and/or symptoms reported regarding the musculoskeletal system. Vital Signs: 18:57 BP 141 / 85; Pulse 84; Resp 18 S; Temp 101.1; Pulse Ox 98% on R/A; iw 19:19 BP 127 / 68; Pulse 90; Resp 16; Pulse Ox 97% on R/A; Pain 0/10; ls4 ED Course: 18:26 Patient arrived in ED. iw 18:30 Jose Vale PA is PHCP. jr8 18:30 Alfredito Valle MD is Attending Physician. jr8 18:59 Triage completed. iw 18:59 Arm band placed on. iw 19:02 Juli Bah, VALERIE is Primary Nurse. ls4 19:10 No provider procedures requiring assistance completed. ls4 20:00 Chest Single View XRAY In Process Unspecified. EDMS 20:29 Urine Culture Sent. ls4 08/09 09:14 Health Dept notified/ PUI # [id number]/ Elin from lab notified. eb Administered Medications: 08/08 20:50 Drug: Acetaminophen 1000 mg Route: PO; ls4 Outcome: 21:50 Discharge ordered by . jr8 22:54 Patient left the ED. sg Addendum: 08/13/2019 12:44 Addendum: Other Dr. Rittger spoke with patient's daughter regarding positive COVID s s results. Daughter verbalizes understanding importance of close follow up and returning to ER as needed for any worsening of symptoms. Signatures: Dispatcher [employer] Markell Chung RN RN sg Williams, Irene, RN RN iw Smirch, Shelby, RN RN Jose Collado PA PA jr8 Mariangel Whitfield Lisa, RN RN ls4 Corrections: (The following items were deleted from the chart) 08/08 21:04 21:03 Acetaminophen 1000 mg PO ls4 ls4
[2019-08-09 23:19] VITALS: TEMP 101.1
[2019-08-09 23:21] VITALS: BP 127/68; O2SAT 97
== END 2019-08-09 22:54 | disposition home or self-care (01) ==
LOC: ER 18:15
DX: U07.1 COVID-19 (principal)
CPT/HCPCS: 87040 ×2; 87088; 85025; 87086; 80048; 36415; 82150; 85384; 82550; 87205; 85610; 80076; 83605; 85730; 84484; 82728; 83690; 84145; 86140; 71045; 99284; U0001; 81003; 81015

== ENCOUNTER 2020-03-15 19:55 | Emergency (ER) | payer OTHER ==
[2020-03-15] MEDS ORDERED: METOCLOPRAMIDE 10 MG/2mL INJ ONE (21:34)
[2020-03-15] MEDS ORDERED: DIPHENHYDRAMINE 50 MG/ML VIAL ONE (21:34)
[2020-03-15] MEDS ORDERED: ACETAMINOPHEN 500 MG TAB ONE (21:35)
[2020-03-15] MEDS ORDERED: NA CHLORIDE 0.9% 0 ML ONE (21:35)
[2020-03-15 22:04] LABS: Absolute Lymphocytes (CBC) 2.2 K/uL (0.7-4.9); Basophils % 0.3 % (0-1.3); Hematocrit 40.3 % (36.0-45.0); Lymphocytes % 23.7 % (15.3-44.8); MPV 8.3 fL (7.6-11.3); RBC Red Blood Cell Count 4.39 M/uL (3.86-4.86)
[2020-03-15 22:27] LABS: Bilirubin Direct 0.1 mg/dL (0-0.2); Bilirubin Total 0.4 mg/dL (0.2-1.0); Potassium 3.8 mmol/L (3.5-5.1)
[2020-03-15 23:13] LABS: SARS-COV-2 RT PCR NEGATIVE (NEGATIVE)
--- NOTE | 2020-03-15 23:46 | ER ---
Nurse's Notes [facility] Name: Elizabeth Degroot Age: 70 yrs Sex: Female : 1950 Arrival Date: 03/15/2020 Time: 19:57 Bed 8 Private MD: Diagnosis: Cough;Headache Presentation: 03/15 20:02 Chief complaint: Patient states: Cough, BASS, fatigue for 2 days. No fever. No N/V/D. ll1 Coronavirus screen: Client denies travel out of the [place] in the last 14 days. cough unrelated to allergies, fatigue, headache, runny nose, Client presents with at least one sign or symptom that may indicate coronavirus-19. Standard/surgical mask placed on the client. Ebola Screen: Patient denies travel to an Ebola-affected area in the 21 days before illness onset. Initial Sepsis Screen: Does the patient meet any 2 criteria? HR > 90 bpm. No. Patient's initial sepsis screen is negative. Does the patient have a suspected source of infection? Yes: Productive cough/pneumonia. Risk Assessment: Do you want to hurt yourself or someone else? Patient reports no desire to harm self or others. Onset of symptoms was March 14, 2020. 20:02 Method Of Arrival: Ambulatory ll1 20:02 Acuity: MARTIN 3 ll1 Historical: - Allergies: 20:02 No Known Drug Allergies; ll1 - PMHx: 20:02 Hyperlipidemia; Osteoporosis; ll1 - PSHx: 20:02 D \T\ C; Tubal ligation; ll1 - Immunization history:: Flu vaccine is up to date. - Social history:: Smoking status: Patient denies any tobacco usage or history of. Screenin:00 Abuse screen: Denies threats or abuse. Nutritional screening: No deficits noted. jb4 Tuberculosis screening: No symptoms or risk factors identified. Fall Risk None identified. Assessment: 21:00 General: Appears in no apparent distress. comfortable, Behavior is calm, cooperative, jb4 appropriate for age. Pain: Complains of pain in headache Pain currently is 0 out of 10 on a pain scale. at worst was 6 out of 10 on a pain scale. Neuro: Level of Consciousness is awake, alert, obeys commands, Oriented to person, place, time, situation. Cardiovascular: Patient's skin is warm and dry. Respiratory: Airway is patent Respiratory effort is even, unlabored, Respiratory pattern is regular, symmetrical. GI: No signs and/or symptoms were reported involving the gastrointestinal system. : No signs and/or symptoms were reported regarding the genitourinary system. EENT: No signs and/or symptoms were reported regarding the EENT system. Derm: Skin is intact, Skin is pink, warm \T\ dry. Musculoskeletal: Circulation, motion, and sensation intact. Range of motion: intact in all extremities. 22:00 Reassessment: Patient appears in no apparent distress at this time. Patient and/or jb4 family updated on plan of care and expected duration. Pain level reassessed. Patient is alert, oriented x 3, equal unlabored respirations, skin warm/dry/pink. 23:00 Reassessment: Patient appears in no apparent distress at this time. Patient and/or jb4 family updated on plan of care and expected duration. Pain level reassessed. Patient is alert, oriented x 3, equal unlabored respirations, skin warm/dry/pink. 03/16 00:00 Reassessment: Patient appears in no apparent distress at this time. Patient and/or jb4 family updated on plan of care and expected duration. Pain level reassessed. Patient is alert, oriented x 3, equal unlabored respirations, skin warm/dry/pink. Vital Signs: 03/15 20:02 BP 181 / 83; Pulse 91; Resp 18; Temp 98.0; Pulse Ox 98% ; Pain 2/10; ll1 22:30 BP 132 / 76; Pulse 83; Resp 16; Pulse Ox 98% on R/A; jb4 23:30 BP 163 / 76; Pulse 77; Resp 16; Pulse Ox 100% on R/A; Pain 0/10; jb4 ED Course: 19:57 Patient arrived in ED. cf2 20:02 Arm band placed on. ll1 20:05 Triage completed. ll1 20:50 Tomer Rivas MD is Attending Physician. mh7 21:00 Patient has correct armband on for positive identification. Bed in low position. Call jb4 light in reach. Side rails up X 1. Pulse ox on. NIBP on. 21:12 Alek Sharma RN is Primary Nurse. jb4 21:32 Chest Single View XRAY In Process Unspecified. EDMS 21:56 Inserted saline lock: 20 gauge in right antecubital area, using aseptic technique. oe Blood collected. 22:05 CT Head Brain wo Cont In Process Unspecified. EDMS 03/16 00:08 No provider procedures requiring assistance completed. IV discontinued, intact, jb4 bleeding controlled, No redness/swelling at site. Pressure dressing applied. Administered Medications: 03/15 22:09 Not Given (Patient Refused): Tylenol 1000 mg PO once jb4 22:10 Not Given (Patient Refused): NS 0.9% 500 ml IV at bolus once jb4 22:10 Not Given (Patient Refused): Reglan 10 mg IVP once; over 1 to 2 minutes jb4 22:10 Not Given (Patient Refused): Benadryl 25 mg IVP once jb4 22:10 Drug: Tylenol 500 mg Route: PO; jb4 22:56 Follow up: Response: No adverse reaction; Pain is decreased jb4 Outcome: 23:46 Discharge ordered by . katia 03/16 00:08 Discharged to home ambulatory. jb4 Condition: stable Discharge instructions given to patient, Instructed on discharge instructions, follow up and referral plans. medication usage, Demonstrated understanding of instructions, follow-up care, medications, Prescriptions given X 1. 00:08 Patient left the ED. jb4 Signatures: Dispatcher [employer] EDMS Alek Sharma, RN RN jb4 Mihir Broderick Celesta cf2 Kojo Rinaldi RN RN ll1 Tomer Rivas MD MD 7
--- NOTE | 2020-03-15 23:47 | EDPHYS ---
Physician Documentation [facility] Name: Elizabeth Degroot Age: 70 yrs Sex: Female : 1950 Arrival Date: 03/15/2020 Time: 19:57 Bed 8 Private MD: ED Physician Tomer Rivas HPI: 03/15 21:52 This 70 yrs old Female presents to ER via Ambulatory with complaints of mh7 Headache, Cough. 21:52 The patient or guardian reports cough, that is intermittent, described as moderate, mh7 with no sputum. Onset: The symptoms/episode began/occurred 2 day(s) ago. Severity of symptoms: At their worst the symptoms were moderate, yesterday, in the emergency department the symptoms are unchanged. Modifying factors: The symptoms are alleviated by nothing, the symptoms are aggravated by nothing. Associated signs and symptoms: Pertinent positives: rhinorrhea, fatigue, headache. Historical: - Allergies: 20:02 No Known Drug Allergies; ll1 - PMHx: 20:02 Hyperlipidemia; Osteoporosis; ll1 - PSHx: 20:02 D \T\ C; Tubal ligation; ll1 - Immunization history:: Flu vaccine is up to date. - Social history:: Smoking status: Patient denies any tobacco usage or history of. ROS: 21:52 Constitutional: Negative for fever, chills, and weight loss, Eyes: Negative for injury, mh7 pain, redness, and discharge, Neck: Negative for injury, pain, and swelling, Cardiovascular: Negative for chest pain, palpitations, and edema, Abdomen/GI: Negative for abdominal pain, nausea, vomiting, diarrhea, and constipation, Back: Negative for injury and pain, : Negative for injury, bleeding, discharge, and swelling, MS/Extremity: Negative for injury and deformity, Skin: Negative for injury, rash, and discoloration, Psych: Negative for depression, anxiety, suicide ideation, homicidal ideation, and hallucinations, Allergy/Immunology: Negative for hives, rash, and allergies, Endocrine: Negative for neck swelling, polydipsia, polyuria, polyphagia, and marked weight changes, Hematologic/Lymphatic: Negative for swollen nodes, abnormal bleeding, and unusual bruising. Exam: 21:52 Constitutional: This is a well developed, well nourished patient who is awake, alert, mh7 and in no acute distress. Head/Face: Normocephalic, atraumatic. Eyes: Pupils equal round and reactive to light, extra-ocular motions intact. Lids and lashes normal. Conjunctiva and sclera are non-icteric and not injected. Cornea within normal limits. Periorbital areas with no swelling, redness, or edema. ENT: Nares patent. No nasal discharge, no septal abnormalities noted. Tympanic membranes are normal and external auditory canals are clear. Oropharynx with no redness, swelling, or masses, exudates, or evidence of obstruction, uvula midline. Mucous membranes moist. Neck: Trachea midline, no thyromegaly or masses palpated, and no cervical lymphadenopathy. Supple, full range of motion without nuchal rigidity, or vertebral point tenderness. No Meningismus. Chest/axilla: Normal chest wall appearance and motion. Nontender with no deformity. No lesions are appreciated. Cardiovascular: Regular rate and rhythm with a normal S1 and S2. No gallops, murmurs, or rubs. Normal PMI, no JVD. No pulse deficits. Respiratory: Lungs have equal breath sounds bilaterally, clear to auscultation and percussion. No rales, rhonchi or wheezes noted. No increased work of breathing, no retractions or nasal flaring. Abdomen/GI: Soft, non-tender, with normal bowel sounds. No distension or tympany. No guarding or rebound. No evidence of tenderness throughout. Back: No spinal tenderness. No costovertebral tenderness. Full range of motion. Skin: Warm, dry with normal turgor. Normal color with no rashes, no lesions, and no evidence of cellulitis. MS/ Extremity: Pulses equal, no cyanosis. Neurovascular intact. Full, normal range of motion. Neuro: Awake and alert, GCS 15, oriented to person, place, time, and situation. Cranial nerves II-XII grossly intact. Motor strength 5/5 in all extremities. Sensory grossly intact. Cerebellar exam normal. Normal gait. Psych: Awake, alert, with orientation to person, place and time. Behavior, mood, and affect are within normal limits. Vital Signs: 20:02 BP 181 / 83; Pulse 91; Resp 18; Temp 98.0; Pulse Ox 98% ; Pain 2/10; ll1 22:30 BP 132 / 76; Pulse 83; Resp 16; Pulse Ox 98% on R/A; jb4 23:30 BP 163 / 76; Pulse 77; Resp 16; Pulse Ox 100% on R/A; Pain 0/10; jb4 MDM: 23:45 Differential Diagnosis: Obstructed Airway Bronchitis Influenza Upper Respiratory [facility] Infection Viral Syndrome Pneumonia. Data reviewed: vital signs, nurses notes, lab test result(s), CBC, electrolytes, radiologic studies, CT scan, plain films. Data interpreted: Pulse oximetry: on room air is 98 %. Interpretation: normal. Counseling: I had a detailed discussion with the patient and/or guardian regarding: the historical points, exam findings, and any diagnostic results supporting the discharge/admit diagnosis, lab results, radiology results, the need for outpatient follow up, to return to the emergency department if symptoms worsen or persist or if there are any questions or concerns that arise at home. Response to treatment: the patient's symptoms have resolved after treatment. 23:46 Patient medically screened. [facility] 03/15 21:07 Order name: CBC with Diff [facility] 03/15 21:07 Order name: Basic Metabolic Panel [facility] 03/15 21:07 Order name: LFT's; Complete Time: 23:03 [facility] 03/15 21:07 Order name: Rapid Strep; Complete Time: 23:03 [facility] 03/15 21:07 Order name: CBC with Automated Diff; Complete Time: 22:17 [facility] 03/15 21:07 Order name: Chest Single View XRAY [facility] 03/15 21:08 Order name: Basic Metabolic Panel; Complete Time: 23:03 [facility] 03/15 21:10 Order name: CT Head Brain wo Cont [facility] 03/15 22:52 Order name: Throat Culture [facility] 03/15 23:13 Order name: COVID-19/FLU A+B; Complete Time: 23:35 [facility] 03/15 21:07 Order name: Saline Lock; Complete Time: 22:10 [facility] Administered Medications: 22:09 Not Given (Patient Refused): Tylenol 1000 mg PO once jb4 22:10 Not Given (Patient Refused): NS 0.9% 500 ml IV at bolus once jb4 22:10 Not Given (Patient Refused): Reglan 10 mg IVP once; over 1 to 2 minutes jb4 22:10 Not Given (Patient Refused): Benadryl 25 mg IVP once jb4 22:10 Drug: Tylenol 500 mg Route: PO; jb4 22:56 Follow up: Response: No adverse reaction; Pain is decreased jb4 Disposition: 03/15/20 23:46 Discharged to Home. Impression: Cough, Headache. - Condition is Stable. - Discharge Instructions: General Headache Without Cause, Cough, Adult, [id number]. - Prescriptions for Tessalon Perles 100 mg Oral Capsule - take 1 capsule by ORAL route every 8 hours As needed; 15 capsule. - Medication Reconciliation Form, Thank You Letter, Antibiotic Education, Prescription Opioid Use form. - Follow up: Private Physician; When: 1 - 2 days; Reason: Worsening of condition, Recheck today's complaints, Continuance of care, Re-evaluation by your physician. - Problem is new. - Symptoms have improved. Signatures: Dispatcher [employer] [facility] Alek Sharma RN RN jb4 Kojo Rinaldi RN RN ll1 Tomer Rivas MD MD mh7 Corrections: (The following items were deleted from the chart) 22:16 21:08 Influenza Screen (A \T\ B)+[id number].LAB.BRZ ordered. [facility] 03/16 00:08 03/15 23:46 03/15/2020 23:46 Discharged to Home. Impression: Cough; Headache. Condition jb4 is Stable. Forms are Medication Reconciliation Form, Thank You Letter, Antibiotic Education, Prescription Opioid Use. Follow up: Private Physician; When: 1 - 2 days; Reason: Worsening of condition, Recheck today's complaints, Continuance of care, Re-evaluation by your physician. Problem is new. Symptoms have improved. mh7
[2020-03-16 00:46] VITALS: TEMP 98
[2020-03-16 00:49] VITALS: BP 163/76; O2SAT 100
--- NOTE | 2020-03-16 11:00 | RAD REPORT ---
EXAM DESCRIPTION: RAD - Chest Single View - 03/15/2020 9:31 pm CLINICAL HISTORY: The patient is 70 years old and is Female; COUGH TECHNIQUE: Frontal view of the chest. COMPARISON: No relevant prior studies available. FINDINGS: LUNGS: Unremarkable. No consolidation. PLEURAL SPACE: Unremarkable. No pneumothorax. HEART: The cardiac silhouette is enlarged. MEDIASTINUM: Unremarkable. BONES/JOINTS: There are degenerative changes of the bones. VASCULATURE: Mild prominence of central vasculature is noted. IMPRESSION: Cardiomegaly with findings suggestive of mild vascular congestion. Electronically signed by: Kisha Slaughter MD 03/15/2020 10:33 PM RADIO SURVEY WORKER Due to temporary technical issues with the PACS/Fluency reporting system, reports are being signed by the in house radiologist without review as a courtesy to ensure prompt reporting. The interpreting r adiologist is fully responsible for the content of the report.
--- NOTE | 2020-03-16 11:02 | RAD REPORT ---
EXAM DESCRIPTION: CT - Head Brain Wo Cont - 03/16/2020 4:49 am CLINICAL HISTORY: HEADACHE TECHNIQUE: Contiguous axial CT images obtained through the brain without IV contrast. Coronal and sa gittal reformatted images were provided. This exam was performed according to our departmental dose-optimization program, which includes autom ated exposure control, adjustment of the mA and/or kV according to patient size and/or use of iterati ve reconstruction technique. COMPARISON: None available for comparison FINDINGS: Brain: No significant white matter changes. No focal mass effect. Osman-white matter differ entiation is within normal limits. No hemorrhage. Ventricles: No ventriculomegaly or midline shift. Extra-axial spaces: No extra-axial collection or hemorrhage. Paranasal sinuses and mastoid air cells: Well-aerated Vessels: Unremarkable Bones: Unremarkable Soft tissues: Unremarkable IMPRESSION: No acute intracranial or extra-axial abnormality. Electronically signed by: Josemanuel Mancera MD 03/15/2020 10:07 PM RESOURCES REPRESENTATIVE Due to temporary technical issues with the PACS/Fluency reporting system, reports are being signed by the in house radiologist without review as a courtesy to ensure prompt reporting. The interpreting r adiologist is fully responsible for the content of the report.
== END 2020-03-16 00:08 | disposition home or self-care (01) ==
LOC: ER 19:55
DX: R05 Cough (principal); R51.9 Headache, unspecified; Z20.822 Contact with and (suspected) exposure to COVID-19
CPT/HCPCS: 87070; 85025; 80048; 36415; 80076; 87081; 0240U; 70450; 71045; 99284; J1200; J2765; J7040

== ENCOUNTER 2020-09-13 20:55 | Emergency (ER) | payer OTHER ==
--- NOTE | 2020-09-13 23:43 | ER ---
Nurse's Notes [facility] Name: Elizabeth Degroot Age: 70 yrs Sex: Female : 1950 Arrival Date: 09/13/2020 Time: 20:57 Bed Waiting Private MD: Diagnosis: Presentation: 09/13 21:23 Chief complaint: Patient states: Has been having chest pain all day, stated it felt vg1 like stabbing. Pt denies NV and states is not having any pain at this moment. Also stated that the chest pain did not radiate to either arm. Coronavirus screen: Client denies travel out of the [place] in the last 14 days. Ebola Screen: Patient negative for fever greater than or equal to 101.5 degrees Fahrenheit, and additional compatible Ebola Virus Disease symptoms. Initial Sepsis Screen: Does the patient meet any 2 criteria? No. Patient's initial sepsis screen is negative. Does the patient have a suspected source of infection? No. Patient's initial sepsis screen is negative. Risk Assessment: Do you want to hurt yourself or someone else? Patient reports no desire to harm self or others. Onset of symptoms was September 13, 2020. 21:23 Method Of Arrival: Ambulatory vg1 21:23 Acuity: MARTIN 3 vg1 Triage Assessment: 21:26 General: Appears in no apparent distress. comfortable, Behavior is calm, cooperative. vg1 Pain: Denies pain. Pain does not radiate. Cardiovascular: Patient's skin is warm and dry. Historical: - Allergies: 21:26 NKDA; vg1 - PMHx: 21:26 Hyperlipidemia; Osteoporosis; vg1 - Immunization history:: Adult Immunizations up to date, Client reports receiving the 1st dose of the Covid vaccine. - Social history:: Smoking status: Patient denies any tobacco usage or history of. Assessment: 23:42 Reassessment: Registration stated pt left around 2325. vg1 Vital Signs: 21:23 BP 170 / 67; Pulse 64; Resp 16; Temp 97.5; Pulse Ox 98% ; Weight 81.65 kg; Height 4 ft. vg1 11 in. (149.86 cm); Pain 0/10; 21:23 Body Mass Index 36.36 (81.65 kg, 149.86 cm) vg1 ED Course: 20:57 Patient arrived in ED. wm 21:26 Triage completed. vg1 21:26 Arm band placed on. EKG completed in triage. Results shown to MD. vg1 21:28 EKG done, by ED staff. vg1 Administered Medications: No medications were administered Outcome: 23:43 Patient left the ED. vg1 Signatures: Nereida Patiño, RN RN vg1 Blanca Kraft
[2020-09-14 00:53] VITALS: BP 170/67; TEMP 97.5; O2SAT 98
== END 2020-09-13 23:43 | disposition left against medical advice (07) ==
LOC: ER 20:55
DX: R07.9 Chest pain, unspecified (principal); E78.5 Hyperlipidemia, unspecified; M81.0 Age-related osteoporosis without current pathological fracture; Z53.21 Procedure and treatment not carried out due to patient leaving prior to being seen by health care provider
CPT/HCPCS: 93005

== ENCOUNTER 2021-02-04 03:47 | Emergency (ER) | payer OTHER ==
--- OUTSIDE RECORDS SUMMARY | 2021-02-04 03:49 | XMS REPORT | Continuity of Care Document ---
:1950 Author Organization [facility] t Address [address] [place] [address] Care Team Providers Name Role Phone Unavailable Unavailable Unavailable Problems This patient has no known problems. Allergies, Adverse Reactions, Alerts This patient has no known allergies or adverse reactions. Medications This patient has no known medications. Procedures This patient has no known procedures. Encounters Start End Encounter Admission Attending Care Care Encounter Source Date/Time Date/Time Type Type Clinicians Facility Department ID 2019-08-27 2019-08-[address] [facility] [id number] [facility] 00:00:00 00:00:00 Dano Malhotra ent Clinics Results This patient has no known results.
[2021-02-04] MEDS ORDERED: DOCUSATE NA 100 MG CAP PO ONE (04:19)
--- NOTE | 2021-02-04 04:22 | ER ---
Nurse's Notes [facility] Name: Elizabeth Degroot Age: 71 yrs Sex: Female : 1950 Arrival Date: 02/04/2021 Time: 03:56 Bed 19 Private MD: Diagnosis: Constipation, unspecified;Encounter for general adult medical examination without abnormal findings Presentation: 02/04 04:03 Chief complaint: Patient states: PT states that she has not had a bowel movement in 3 kd3 days and that she is now afraid to try because she is afraid it will hurt. pt denies any pain and states that she "feels fine" but she has not been to the doctor in years. pt denies past medical history. Coronavirus screen: Vaccine status: Patient reports being unvaccinated. At this time, the client does not indicate any symptoms associated with coronavirus-19. Ebola Screen: No symptoms or risks identified at this time. Initial Sepsis Screen: Does the patient meet any 2 criteria? No. Patient's initial sepsis screen is negative. Does the patient have a suspected source of infection? No. Patient's initial sepsis screen is negative. Risk Assessment: Do you want to hurt yourself or someone else? Patient reports no desire to harm self or others. Onset of symptoms is unknown. 04:03 Method Of Arrival: Ambulatory kd3 04:03 Acuity: MARTIN 5 kd3 04:03 Acuity: MARTIN 4 kd3 Triage Assessment: 04:08 General: Appears in no apparent distress. comfortable, Behavior is calm, cooperative, kd3 appropriate for age. Pain: Denies pain. EENT: No deficits noted. Neuro: No deficits noted. Cardiovascular: No deficits noted. Respiratory: No deficits noted. GI: Reports constipation. : No deficits noted. Derm: No deficits noted. Musculoskeletal: No deficits noted. Historical: - Allergies: 04:08 NKDA; kd3 - Immunization history:: Adult Immunizations unknown, Client reports having NOT received the Covid vaccine. - Social history:: Smoking status: Patient denies any tobacco usage or history of. - Family history:: not pertinent. - Hospitalizations: : No recent hospitalization is reported. Screenin:12 Abuse screen: Denies threats or abuse. Denies injuries from another. Nutritional kd3 screening: No deficits noted. Tuberculosis screening: No symptoms or risk factors identified. Fall Risk None identified. Assessment: 04:11 Reassessment: Patient is alert, oriented x 3, equal unlabored respirations, skin kd3 warm/dry/pink. see triage notes Patient denies pain at this time. 04:12 GI: kd3 04:22 GI: Bowel sounds present X 4 quads. Abd is soft and non tender X 4 quads. Reports kd3 constipation. Vital Signs: 04:03 BP 174 / 98; Pulse 78; Resp 18; Pulse Ox 100% on R/A; kd3 ED Course: 03:56 Patient arrived in ED. ja2 04:03 Norma Elias, RN is Primary Nurse. kd3 04:07 Jose Daniel Melendez MD is Attending Physician. rn 04:07 Triage completed. kd3 04:08 Arm band placed on right wrist. kd3 04:12 Patient has correct armband on for positive identification. Bed in low position. Call kd3 light in reach. Side rails up X 1. 04:22 No provider procedures requiring assistance completed. Patient did not have IV access kd3 during this emergency room visit. Administered Medications: 04:22 Drug: Docusate 100 mg Route: PO; kd3 Outcome: 04:21 Discharge ordered by . rn 04:22 Discharged to home ambulatory. kd3 04:22 Condition: stable 04:22 Discharge instructions given to patient, Instructed on discharge instructions, follow up and referral plans. medication usage, Demonstrated understanding of instructions, follow-up care, medications. 04:28 Patient left the ED. kd3 Signatures: Jose Daniel Melendez MD MD rn Alexander, Jessica [facility] Norma Elias, VALERIE RN kd3
--- NOTE | 2021-02-04 04:22 | EDPHYS ---
Physician Documentation [facility] Name: Elizabeth Degroot Age: 71 yrs Sex: Female : 1950 Arrival Date: 02/04/2021 Time: 03:56 Bed 19 Private MD: ED Physician Jose Daniel Melendez HPI: 02/04 04:15 This 71 yrs old Female presents to ER via Ambulatory with complaints of rn Constipation. 04:15 Patient reports is constipated, last bowel movement 2 days ago and normally goes every rn day. Patient states feels fine and does not have abdominal pain or vomiting but came because she is scared that when she finally goes to the bathroom that is going to hurt. Does not drink water. Lives at home alone. States unable to go to the store for stool softeners so sits there at home and does not think instead. Does not feel the urge to go to the bathroom. Family member here for another reason so she came along and wanted to be seen.. Onset: The symptoms/episode began/occurred at an unknown time. Severity of symptoms: At their worst the symptoms were very mild in the emergency department the symptoms are unchanged. The patient has experienced similar episodes in the past. The patient has not recently seen a physician. Historical: - Allergies: 04:08 NKDA; kd3 - Immunization history:: Adult Immunizations unknown, Client reports having NOT received the Covid vaccine. - Social history:: Smoking status: Patient denies any tobacco usage or history of. - Family history:: not pertinent. - Hospitalizations: : No recent hospitalization is reported. ROS: 04:15 Constitutional: Negative for fever, chills, and weight loss, Eyes: Negative for injury, rn pain, redness, and discharge, ENT: Negative for injury, pain, and discharge, Cardiovascular: Negative for chest pain, palpitations, and edema, Respiratory: Negative for shortness of breath, cough, wheezing, and pleuritic chest pain, Abdomen/GI: Negative for abdominal pain, nausea, vomiting, diarrhea Back: Negative for injury and pain, : Negative for injury, bleeding, discharge, and swelling, MS/Extremity: Negative for injury and deformity, Skin: Negative for injury, rash, and discoloration, Neuro: Negative for headache, weakness, numbness, tingling, and seizure. Exam: 04:15 Constitutional: This is a well developed, well nourished patient who is awake, alert, rn and in no acute distress. Head/Face: Normocephalic, atraumatic. Abdomen/GI: Soft, nontender, no distention, no guarding or rebound Skin: Warm, dry MS/ Extremity: Pulses equal, no cyanosis. Neurovascular intact. Full, normal range of motion. Equal circumference. Neuro: Awake and alert, GCS 15, oriented to person, place, time, and situation. Cranial nerves II-XII grossly intact. Motor strength 5/5 in all extremities. Sensory grossly intact. Cerebellar exam normal. Normal gait. Vital Signs: 04:03 BP 174 / 98; Pulse 78; Resp 18; Pulse Ox 100% on R/A; kd3 MDM: 04:07 Patient medically screened. rn 04:15 Differential Diagnosis Constipation, dehydration. Data reviewed: vital signs, nurses rn notes, and as a result, I will discharge patient. Counseling: I had a detailed discussion with the patient and/or guardian regarding: the historical points, exam findings, and any diagnostic results supporting the discharge/admit diagnosis, the need for outpatient follow up, to return to the emergency department if symptoms worsen or persist or if there are any questions or concerns that arise at home. Special discussion: I discussed with the patient/guardian in detail that at this point there is no indication for admission to the hospital. It is understood, however, that if the symptoms persist or worsen the patient needs to return immediately for re-evaluation. ED course: Spent a long time in the room with patient and reexamining to make sure no abdominal tenderness or pain. Patient is truly here out of the fear of having a hard and difficult bowel movement in the near future due to her constipation. No acute findings on exam. Stable vital signs. Will give stool softener and recommend more water intake. Return precautions given and will discharge home.. Administered Medications: 04:22 Drug: Docusate 100 mg Route: PO; kd3 Disposition Summary: 02/04/21 04:21 Discharge Ordered Location: Home rn Problem: an ongoing problem rn Symptoms: are unchanged rn Condition: Stable rn Diagnosis - Constipation, unspecified rn - Encounter for general adult medical examination without abnormal findings rn Followup: rn - With: Private Physician - When: As needed - Reason: Recheck today's complaints, Re-evaluation by your physician Discharge Instructions: - Discharge Summary Sheet rn - Constipation, Adult rn Forms: - Medication Reconciliation Form rn - Thank You Letter rn - Antibiotic data governance consultant - Prescription Opioid Use rn Signatures: Jose Daniel Melendez MD MD rn Doucette, Kyli RN RN kd3
[2021-02-04 04:33] VITALS: BP 174/98; O2SAT 100
== END 2021-02-04 04:28 | disposition home or self-care (01) ==
LOC: ER 03:47
DX: K59.00 Constipation, unspecified (principal)
CPT/HCPCS: 99282

== ENCOUNTER 2022-03-30 12:22 | Emergency (ER) | payer OTHER ==
--- OUTSIDE RECORDS SUMMARY | 2022-03-30 12:25 | XMS REPORT | Continuity of Care Document ---
:1950 Author Organization [facility] t Address [facility] [place] [address] Care Team Providers Name Role Phone Raza Fang Attending Clinician Unavailable Payers Payer Name Policy Type Policy Number Effective Date Expiration Date Suzie GARCIA 53 [id number] 2019 [facility] 00:00:00 [facility] MEDICARE MB [id number] 2016 [facility] NOVITAS 00:00:00 [facility] Problems Condition Condition Condition Status Onset Resolution Last Treating Co mments Source Name Details Category Date Date Treatment Clinician Date [id number] HTN, goal Problem Active Comm on below Spirit 150/90 - [facility] [id number] 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 - [facility] onset [facility] [id number] Asymptomat Problem Active Co mmon ic Spirit hypertensi - [facility] ve urgency [facility] [id number] Body mass Problem Active Com mon index Spirit (BMI) - [facility] 37.0-37.9, [facility] [id number] Mixed Problem Active Common hyperlipid Spirit emia - [facility] [id number] Morbid Problem Active Common (severe) Spirit obesity - CHI due to [facility] [id number] Osteopenia Problem Active Co mmon , Spirit unspecifie - CHI d location [facility] [id number] Prediabete Problem Active Co mmon s Spirit - [facility] [id number] Subclinica Problem Active Com mon l Spirit hypothyroi - [facility]I dism [facility] [id number] Fatigue, Problem Active Commo n unspecifie Spirit d [facility] Allergies, Adverse Reactions, Alerts This patient has no known allergies or adverse reactions. Social History Social Habit Start Date Stop Date Quantity Comments Source Sex Assigned At Com mon [facility] History of Tobacco Use Co mmon [facility] Smoking Status Start Date Stop Date Source Never Smoker Common [facility] Medications Ordered Filled Start Stop Current Ordering Indication Dosage Frequency Signature Comments Components Source Medication Medication Date Date Medication? Clinician (SIG) Name Name Alendronate Alendronate No 1{table Alendronat Sodium 35 Sodium 35 t} e Sodium MG MG 35 MG Atorvastati Atorvastati No 1{table QD Atorvastat n Calcium n Calcium t} in Calcium 20 MG 20 MG 20 MG Caltrate Caltrate No 1{table QD Caltrate 600+D3 600+D3 t_with_ 600+D3 600-800 600-800 a_meal} 600-800 MG-UNIT MG-UNIT MG-UNIT Levothyroxi Levothyroxi No QD Levothyrox ne Sodium ne Sodium ine Sodium 25 MCG 25 MCG 25 MCG Alendronate Alendronate No 1{table Alendronat Sodium 35 Sodium 35 t} e Sodium MG MG 35 MG Atorvastati Atorvastati No 1{table QD Atorvastat n Calcium n Calcium t} in Calcium 20 MG 20 MG 20 MG Caltrate Caltrate No 1{table QD Caltrate 600+D3 600+D3 t_with_ 600+D3 600-800 600-800 a_meal} 600-800 MG-UNIT MG-UNIT MG-UNIT Levothyroxi Levothyroxi No QD Levothyrox ne Sodium ne Sodium ine Sodium 25 MCG 25 MCG 25 MCG Procedures This patient has no known procedures. Encounters Start End Encounter Admission Attending Care Care Encounter Source Date/Time Date/Time Type Type Clinicians Facility Department ID 2021-11-17 Outpatient Leoncio [facility] [id number] Common 13:07:01 [facility] 2021-03-10 Outpatient Leoncio [facility] [id number] Common 11:08:30 [facility] [id number] [facility] 2021-03-10 Outpatient Leoncio [facility] [id number] Common 11:08:11 Raza [id number] [facility] 2021-03-10 Outpatient Fang, STLMLC STLMLC [id number] Common 11:06:12 Raza [id number] [facility] 2021-09-21 2021-09-21 (TEL) STLMLC STLMLC [id number] Co mmon 00:00:00 00:00:00 [facility] 2019-10-02 2019-10-02 Outpatient [facility] PDPFECZ [facility] 00:00:00 00:00:00 -[id number] 2019-08-27 2019-08-27 (TEL) STLMLC STLMLC [id number] Co mmon 00:00:00 00:00:00 [facility] Results This patient has no known results.
--- NOTE | 2022-03-30 13:00 | RAD REPORT ---
EXAM DESCRIPTION: RAD - Chest Pa And Lat (2 Views) - 03/30/2022 12:55 pm CLINICAL HISTORY: COUGH COMPARISON: Chest Single View dated 03/15/2020; Chest Single View dated 08/09/2019; Chest Pa And Lat ( 2 Views) dated 06/12/2017; Chest Single View dated 06/17/2015; CHEST PA AND LAT 2 VIEW dated 08/10/2007 FINDINGS: Lines: None. Lungs: No evidence of edema or pneumonia. Pleural: No significant pleural effusions or pneumothorax. Cardiac: Cardiomegaly. Mediastinum: Within normal limits. Bones: No acute fractures. Other: None IMPRESSION: No acute cardiopulmonary disease.
[2022-03-30 14:00] LABS: SARS-COV-2 RT PCR POSITIVE (NEGATIVE)
--- NOTE | 2022-03-30 14:16 | EDPHYS ---
Physician Documentation [facility] Name: Elizabeth Degroot Age: 72 yrs Sex: Female : 1950 Arrival Date: 03/30/2022 Time: 12:27 Bed IW3 Private MD: ED Physician Gus Tapia HPI: 03/30 12:50 This 72 yrs old Female presents to ER via Ambulatory with complaints of Flu kb Symptoms. 12:50 The patient or guardian reports cough, that is intermittent, described as mild. Onset: kb The symptoms/episode began/occurred yesterday. Severity of symptoms: At their worst the symptoms were mild, in the emergency department the symptoms are unchanged. Modifying factors: The symptoms are alleviated by nothing, the symptoms are aggravated by nothing. Associated signs and symptoms: The patient has no apparent associated signs or symptoms. The patient has not experienced similar symptoms in the past. The patient has not recently seen a physician. Historical: - Allergies: 12:37 No Known Allergies; ap3 - PMHx: 12:37 Hyperlipidemia; Osteoporosis; ap3 - Immunization history:: Client reports having NOT received the Covid vaccine. - Social history:: Smoking status: Patient denies any tobacco usage or history of. ROS: 12:50 Constitutional: Negative for fever, chills, and weight loss. kb 12:50 Respiratory: Positive for cough, Negative for dyspnea on exertion, hemoptysis, orthopnea, pleurisy, shortness of breath, sputum production, wheezing. 12:50 All other systems are negative. Exam: 12:50 Constitutional: This is a well developed, well nourished patient who is awake, alert, kb and in no acute distress. Head/Face: Normocephalic, atraumatic. ENT: Moist Mucous membranes Cardiovascular: Regular rate and rhythm with a normal S1 and S2. No gallops, murmurs, or rubs. No pulse deficits. Respiratory: Respirations even and unlabored. No increased work of breathing. Talking in full sentences Abdomen/GI: Soft, non-tender. No distention Skin: Warm, dry with normal turgor. Normal color. MS/ Extremity: Pulses equal, no cyanosis. Neurovascular intact. Full, normal range of motion. Neuro: Awake and alert, GCS 15, oriented to person, place, time, and situation. Moves all extremities. Normal gait. Psych: Awake, alert, with orientation to person, place and time. Behavior, mood, and affect are within normal limits. Vital Signs: 12:35 Pulse 99; Temp 99.5; ap3 12:37 BP 140 / 65; Pulse Ox 96% ; Weight 97.52 kg; ap3 MDM: 12:38 Patient medically screened. 12:48 Differential diagnosis: URI, pneumonia Flu, COVID, RSV. Data reviewed: vital signs, nurses notes. ED course: Patient is a 72-year-old female who presents for cough that started yesterday. Denies fever, congestion, shortness of breath, chest pain. Respirations even and unlabored with clear lung sounds throughout. No increased work of breathing. Patient is nontoxic in appearance. Will obtain COVID, flu, RSV test and chest x-ray.. 14:14 I considered the following discharge prescriptions or medication management in the emergency department I discussed and recommended Over The Counter medications, Antibiotics: At this time antibiotics are not recommended. Counseling: I had a detailed discussion with the patient and/or guardian regarding: the historical points, exam findings, and any diagnostic results supporting the discharge/admit diagnosis, lab results, radiology results, the need for outpatient follow up, a family practitioner, to return to the emergency department if symptoms worsen or persist or if there are any questions or concerns that arise at home. 03/30 12:38 Order name: COVID-19/FLU A+B/RSV 03/30 14:00 Order name: COVID-19/FLU A+B/RSV; Complete Time: 14:14 EDMS 03/30 12:38 Order name: Chest Pa And Lat (2 Views) XRAY 03/30 13:01 Order name: RAD; Complete Time: 13:04 EDMS Administered Medications: No medications were administered Disposition Summary: 03/30/22 14:15 Discharge Ordered Location: Home Condition: Stable Diagnosis - SARS-associated coronavirus as the cause of diseases classified elsewhere Followup: kb - With: Emergency Department - When: As needed - Reason: Worsening of condition Followup: kb - With: Private Physician - When: 2 - 3 days - Reason: Recheck today's complaints, Continuance of care, Re-evaluation by your physician Discharge Instructions: - Discharge Summary Sheet - COVID-19 kb - Viral Illness, Adult kb Forms: - Medication Reconciliation Form kb - Thank You Letter kb - Antibiotic Education kb - Prescription Opioid Use kb Signatures: Dispatcher [employer] Ivett Harley, Carlie Liang, RN RN ap3 Corrections: (The following items were deleted from the chart) 12:37 12:37 Allergies: NKDA; ap3 ap3
--- NOTE | 2022-03-30 14:16 | ER ---
Nurse's Notes [facility] Name: Elizabeth Degroot Age: 72 yrs Sex: Female : 1950 Arrival Date: 03/30/2022 Time: 12:27 Bed IW3 Private MD: Diagnosis: SARS-associated coronavirus as the cause of diseases classified elsewhere Presentation: 03/30 12:35 Chief complaint: Patient states: patient she has a cough that started yesterday. ap3 patient denies SOB at this time. Coronavirus screen: Client presents with at least one sign or symptom that may indicate coronavirus-19. Ebola Screen: No symptoms or risks identified at this time. Initial Sepsis Screen: Does the patient meet any 2 criteria? No. Patient's initial sepsis screen is negative. Does the patient have a suspected source of infection? No. Patient's initial sepsis screen is negative. Risk Assessment: Do you want to hurt yourself or someone else? Patient reports no desire to harm self or others. Onset of symptoms was March 29, 2022. 12:35 Method Of Arrival: Ambulatory ap3 12:37 Acuity: MARTIN 4 ap3 Triage Assessment: 12:38 General: Appears in no apparent distress. Behavior is calm, cooperative, appropriate ap3 for age. Pain: Denies pain. Neuro: Level of Consciousness is awake, alert, obeys commands, Oriented to person, place, time, situation. Cardiovascular: Patient's skin is warm and dry. Respiratory: Reports cough that is Airway is patent Respiratory effort is even, unlabored. Historical: - Allergies: 12:37 No Known Allergies; ap3 - PMHx: 12:37 Hyperlipidemia; Osteoporosis; ap3 - Immunization history:: Client reports having NOT received the Covid vaccine. - Social history:: Smoking status: Patient denies any tobacco usage or history of. Screenin:38 [facility] ED Fall Risk Assessment (Adult) History of falling in the last 3 months, ap3 including since admission No falls in past 3 months (0 pts). Abuse screen: Denies threats or abuse. Nutritional screening: No deficits noted. Tuberculosis screening: No symptoms or risk factors identified. Vital Signs: 12:35 Pulse 99; Temp 99.5; ap3 12:37 BP 140 / 65; Pulse Ox 96% ; Weight 97.52 kg; ap3 ED Course: 12:27 Patient arrived in ED. mr 12:29 [facility] Hensley [facility]C [facility]. kb 12:29 Gus Tapia MD is Attending Physician. kb 12:38 Triage completed. ap3 12:38 Arm band placed on right wrist. ap3 12:41 COVID-19/FLU A+B/RSV Sent. ap3 14:27 Patient has correct armband on for positive identification. Adult w/ patient. ap3 14:27 No provider procedures requiring assistance completed. Patient did not have IV access ap3 during this emergency room visit. Administered Medications: No medications were administered Medication: 14:27 VIS not applicable for this client. ap3 Outcome: 14:15 Discharge ordered by . kb 14:27 Discharged to home ambulatory, with family. ap3 14:27 Condition: good 14:27 Discharge instructions given to patient, family, Instructed on discharge instructions, follow up and referral plans. Demonstrated understanding of instructions, follow-up care. 14:28 Patient left the ED. ap3 Signatures: Ivett Hensley FNP-C FNP-Lyric Juliette WiseCarlie, RN RN ap3 Corrections: (The following items were deleted from the chart) 12:37 12:37 Allergies: NKDA; ap3 ap3
[2022-03-30 14:57] VITALS: TEMP 99.5
[2022-03-30 14:58] VITALS: BP 140/65; O2SAT 96
== END 2022-03-30 14:28 | disposition home or self-care (01) ==
LOC: ER 12:22
DX: U07.1 COVID-19 (principal); E78.5 Hyperlipidemia, unspecified
CPT/HCPCS: 0241U; 71046

== ENCOUNTER 2022-10-07 21:22 | Emergency (ER) | payer OTHER ==
--- OUTSIDE RECORDS SUMMARY | 2022-10-07 21:32 | XMS REPORT | Continuity of Care Document ---
:1950 Author Organization [facility] t Address [address] [place] [address] Care Team Providers Name Role Phone Raza Fang Attending Clinician Unavailable Payers Payer Name Policy Type Policy Number Effective Date Expiration Date Suzie GARCIA 53 [id number] 2019 [facility] 00:00:00 [facility] MEDICARE MB [id number] 2016 [facility] NOVITAS 00:00:00 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 - CHI onset [facility] [id number] Asymptomat Problem Active Co mmon ic Spirit hypertensi - CHI ve urgency [facility] [id number] Body mass Problem Active Com mon index Spirit (BMI) - [facility]I 37.0-37.9, [facility] [id number] Mixed Problem Active Common hyperlipid Spirit emia - [facility] [id number] Morbid Problem Active Common (severe) Spirit obesity - CHI due to [facility] [id number] Osteopenia Problem Active Co mmon , Spirit unspecifie - CHI d location [facility] [id number] Prediabete Problem Active Co mmon s Spirit - CHI [facility] 48305471 Subclinica Problem Active Com mon l Spirit hypothyroi - CHI dism [facility] 12839318 Fatigue, Problem Active Commo n unspecifie [facility] d [facility] Allergies, Adverse Reactions, Alerts This patient has no known allergies or adverse reactions. Social History Social Habit Start Date Stop Date Quantity Comments Source Sex Assigned At Com mon [facility] History of Tobacco Use Co mmon [facility] Smoking Status Start Date Stop Date Source Never Smoker Common [facility] Medications Ordered Filled Start Stop Current Ordering [...] Type Clinicians Facility Department ID 2021-11-[address] [facility] [id number] Common 13:07:01 [facility] 2021-03-10 Outpatient Leoncio [facility] [id number] Common 11:08:30 [facility] 2021-03-10 Outpatient Afng, STLMLC STLMLC [id number] Common 11:08:11 [facility] [id number] [facility] 2021-03-10 Outpatient Fang, STLMLC STLMLC [id number] Common 11:06:12 [facility] [address] [facility] 2021-09-21 2021-09-21 (TEL) STLC STLC [id number] Co mmon 00:00:00 00:00:00 [facility] 2019-10-02 2019-10-02 Outpatient [facility] PDPFECZ [facility] 00:00:00 00:00:00 -[id number] 2019-08-27 2019-08-27 (TEL) STLC STLC [id number] Co mmon 00:00:00 00:00:00 [facility] Results This patient has no known results.
--- NOTE | 2022-10-07 23:40 | EDPHYS ---
Physician Documentation [facility] Name: Elizabeth Degroot Age: 72 yrs Sex: Female : 1950 Arrival Date: 10/07/2022 Time: 21:22 Bed 11 Private MD: ED Physician Bebeto Soriano HPI: 10/07 23:41 This 72 yrs old Female presents to ER via Ambulatory with complaints of kb Constipation. 23:41 Pt reports constipation for 2 days. States she has no abdominal pain, n/v, fever or any kb other symptoms. Concerned because she normally has a BM every day. . Onset: The symptoms/episode began/occurred 2 day(s) ago. Severity of symptoms: At their worst the symptoms were mild in the emergency department the symptoms are unchanged. The patient has experienced similar episodes in the past. The patient has not recently seen a physician. Historical: - Allergies: 21:50 No Known Allergies; vc1 - PMHx: 21:50 Hyperlipidemia; Osteoporosis; vc1 - PSHx: 21:50 None; vc1 - Immunization history:: Client reports receiving the 2nd dose of the Covid vaccine. - Social history:: Smoking status: Patient denies any tobacco usage or history of. ROS: 23:40 Constitutional: Negative for fever, chills, and weight loss. kb 23:40 Abdomen/GI: Positive for constipation, Negative for abdominal pain, nausea, vomiting, and diarrhea. 23:40 All other systems are negative. Exam: 23:40 Constitutional: This is a well developed, well nourished patient who is awake, alert, kb and in no acute distress. Head/Face: Normocephalic, atraumatic. ENT: Moist Mucous membranes Cardiovascular: Regular rate and rhythm with a normal S1 and S2. No gallops, murmurs, or rubs. No pulse deficits. Respiratory: Respirations even and unlabored. No increased work of breathing. Talking in full sentences Abdomen/GI: Soft, non-tender. No distention Skin: Warm, dry with normal turgor. Normal color. MS/ Extremity: Pulses equal, no cyanosis. Neurovascular intact. Full, normal range of motion. Neuro: Awake and alert, GCS 15, oriented to person, place, time, and situation. Moves all extremities. Normal gait. Vital Signs: 21:51 BP 181 / 74; Pulse 62; Resp 20; Temp 98.1; Pulse Ox 98% ; vc1 10/08 00:01 BP 156 / 78; Pulse 72; Resp 16; Pulse Ox 100% on R/A; kl MDM: 10/07 21:45 Patient medically screened. kb 23:42 Differential Diagnosis constipation, bowel obstruction, fecal impaction. Data reviewed: kb vital signs, nurses notes. Test considered but Not performed: CT: CT abd considered, but pt is nontoxic in appearance, afebrile and has no abd tenderness or reported pain. Counseling: I had a detailed discussion with the patient and/or guardian regarding the historical points, exam findings, and any diagnostic results supporting the discharge/admit diagnosis, radiology results, the need for outpatient follow up, a family practitioner, to return to the emergency department if symptoms worsen or persist or if there are any questions or concerns that arise at home. 10/07 21:51 Order name: Abdomen 1 View (KUB) XRAY kb Administered Medications: 10/08 00:02 Drug: Dulcolax PO Delayed Release Tablet 5 mg Route: PO; 00:03 Follow up: Response: No adverse reaction Disposition: 02:26 Co-signature as Attending Physician, Bebeto Soriano MD I agree with the assessment sp4 and plan of care. I reviewed the patient's care provided by the Advanced Practice Provider and agree with the diagnosis and treatment plan. Disposition Summary: 10/07/22 23:39 Discharge Ordered Location: Home kb Condition: Stable kb Diagnosis - Constipation kb Followup: kb - With: Emergency Department - When: As needed - Reason: Worsening of condition Followup: kb - With: Private Physician - When: 2 - 3 days - Reason: Recheck today's complaints, Continuance of care, Re-evaluation by your physician Discharge Instructions: - Discharge Summary Sheet kb - Constipation, Adult, [id number]-Uzsl kb Forms: - Medication Reconciliation Form kb - Thank You Letter kb - Antibiotic Education kb - Prescription Opioid Use kb - Patient Portal Instructions kb - Leadership Thank You Letter kb Signatures: Dispatcher [employer] EDIvett [place] FNP-C FNP-Carito Guevara RN RN kl Calcote, Vanessa, RN RN vc1 Potepalov, Sergey, MD MD sp4
--- NOTE | 2022-10-07 23:40 | ER ---
Nurse's Notes [facility] Name: Elizabeth Degroot Age: 72 yrs Sex: Female : 1950 Arrival Date: 10/07/2022 Time: 21:22 Bed 11 Private MD: Diagnosis: Constipation Presentation: 10/07 21:48 Chief complaint: Patient states: constipation times 2 days took something over the vc1 counter and its not working. Coronavirus screen: Vaccine status: Patient reports receiving the 2nd dose of the covid vaccine. Ebola Screen: Patient negative for fever greater than or equal to 101.5 degrees Fahrenheit, and additional compatible Ebola Virus Disease symptoms Patient denies exposure to infectious person. Patient denies travel to an Ebola-affected area in the 21 days before illness onset. No symptoms or risks identified at this time. Risk Assessment: Do you want to hurt yourself or someone else? Patient reports no desire to harm self or others. Onset of symptoms was October 05, 2022. 21:48 Method Of Arrival: Ambulatory vc1 21:48 Acuity: MARTIN 4 vc1 21:48 Initial Sepsis Screen: Does the patient meet any 2 criteria? No. Patient's initial vc1 sepsis screen is negative. Does the patient have a suspected source of infection? No. Patient's initial sepsis screen is negative. Triage Assessment: 21:51 General: Appears in no apparent distress. comfortable, Behavior is calm, cooperative, vc1 appropriate for age. Pain: Denies pain. EENT: No deficits noted. No signs and/or symptoms were reported regarding the EENT system. Neuro: No deficits noted. Cardiovascular: No deficits noted. Respiratory: No deficits noted. GI: Reports constipation, Patient currently denies abdominal pain, nausea, vomiting. : No deficits noted. No signs and/or symptoms were reported regarding the genitourinary system. Derm: No deficits noted. No signs and/or symptoms reported regarding the dermatologic system. Musculoskeletal: No deficits noted. No signs and/or symptoms reported regarding the musculoskeletal system. Historical: - Allergies: 21:50 No Known Allergies; vc1 - PMHx: 21:50 Hyperlipidemia; Osteoporosis; vc1 - PSHx: 21:50 None; vc1 - Immunization history:: Client reports receiving the 2nd dose of the Covid vaccine. - Social history:: Smoking status: Patient denies any tobacco usage or history of. Screenin:[address] [facility] ED Fall Risk Assessment (Adult) History of falling in the last 3 months, vc1 including since admission No falls in past 3 months (0 pts) Confusion or Disorientation No (0 pts) Intoxicated or Sedated No (0 pts) Impaired Gait No (0 pts) Mobility Assist Device Used No (0 pt) Altered Elimination No (0 pt) Score/Fall Risk Level 0 - 2 = Low Risk Oriented to surroundings, Maintained a safe environment, Educated pt \T\ family on fall prevention, incl call for assistance when getting out of bed. Abuse screen: Denies threats or abuse. Nutritional screening: No deficits noted. Tuberculosis screening: No symptoms or risk factors identified. Assessment: 10/08 00:02 Reassessment: Patient appears in no apparent distress at this time. General: Behavior kl is calm, cooperative. Pain: Denies pain. Neuro: No deficits noted. Gait is steady. Cardiovascular: No deficits noted. Respiratory: No deficits noted. GI: Bowel sounds present X 4 quads. Abd is soft and non tender X 4 quads. Reports constipation. : No deficits noted. No signs and/or symptoms were reported regarding the genitourinary system. EENT: No deficits noted. No signs and/or symptoms were reported regarding the EENT system. Derm: No deficits noted. No signs and/or symptoms reported regarding the dermatologic system. Vital Signs: 10/07 21:51 BP 181 / 74; Pulse 62; Resp 20; Temp 98.1; Pulse Ox 98% ; vc1 10/08 00:01 BP 156 / 78; Pulse 72; Resp 16; Pulse Ox 100% on R/A; kl ED Course: 10/07 21:25 Patient arrived in ED. ag3 21:45 Ivett Hensley FNP-C is PHCP. kb 21:45 Bebeto Soriano MD is Attending Physician. kb 21:50 Triage completed. vc1 21:51 Arm band placed on right wrist. vc1 22:50 Abdomen 1 View (KUB) XRAY In Process Unspecified. EDMS 10/08 00:03 No provider procedures requiring assistance completed. Patient did not have IV access kl during this emergency room visit. Administered Medications: 00:02 Drug: Dulcolax PO Delayed Release Tablet 5 mg Route: PO; kl 00:03 Follow up: Response: No adverse reaction kl Medication: 10/07 23:08 VIS not applicable for this client. vc1 Outcome: 23:39 Discharge ordered by MD. sheldon 10/08 00:03 Discharged to home ambulatory. pola Condition: good Discharge instructions given to patient, Instructed on discharge instructions, follow up and referral plans. Demonstrated understanding of instructions, follow-up care. 00:03 Patient left the ED. pola Signatures: Dispatcher [employer] EDIvett [place], DRYWALL FOREMAN-C GOLD-Carito Guevara, RN RN Emelina Steel ag3 Armida Riley RN RN vc1
[2022-10-07] MEDS ORDERED: BISACODYL E.C. 5 MG TAB PO ONE (23:53)
[2022-10-08 00:09] VITALS: TEMP 98.1
[2022-10-08 00:10] VITALS: BP 156/78; O2SAT 100
--- NOTE | 2022-10-08 22:15 | RAD REPORT ---
EXAM DESCRIPTION: RAD - Abdomen 1 View (KUB) - 10/07/2022 10:49 pm CLINICAL HISTORY: CONSTIPATION COMPARISON: None. FINDINGS: Bowel: No dilated loops of large or small bowel. Moderate amount stool. Peritoneum: No free intraperitoneal air identified. Solid organs: No definite organomegaly. Calcifications: No abnormal calcifications. Bones: Degenerative change of the hips and spine. IMPRESSION: 1. Nonobstructive bowel gas pattern. Electronically signed by: Chau Gonzalez 10/07/2022 11:35 PM CDT Due to temporary technical issues with the PACS/Fluency reporting system, reports are being signed by the in house radiologists without review as a courtesy to insure prompt reporting. The interpreting radiologist is fully responsible for the content of the report.
== END 2022-10-08 00:03 | disposition home or self-care (01) ==
LOC: ER 21:22
DX: K59.00 Constipation, unspecified (principal)
CPT/HCPCS: 74018; 99283

== ENCOUNTER 2022-10-12 09:31 | Emergency (ER) | payer OTHER ==
--- OUTSIDE RECORDS SUMMARY | 2022-10-12 09:34 | XMS REPORT | Continuity of Care Document ---
:1950 Author Organization [facility] t Address [address] [place] [address] Care Team Providers Name Role Phone Raza Fang Attending Clinician Unavailable Payers Payer Name Policy Type Policy Number Effective Date Expiration Date Suzie GARCIA 53 [id number] 2019 [facility] 00:00:00 [facility] MEDICARE MB [id number] 2016 [facility] NOVITAS 00:00:00 [facility] Problems Condition Condition Condition Status Onset Resolution Last Treating Co mments Source Name Details Category Date Date Treatment Clinician Date [id number] HTN, goal Problem Active Comm on below [facility] 150/90 - [facility] [id number] 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 [id number] Osteopenia Problem Active Co mmon , [facility] unspecifie - [facility] d location [facility] [id number] Prediabete Problem Active Co mmon s Spirit - [facility] [id number] Subclinica Problem Active Com mon l [facility] hypothyroi - [facility] dism [facility] [id number] Fatigue, Problem Active Commo n unspecifie [facility] Allergies, Adverse Reactions, Alerts This patient has no known allergies or adverse reactions. Social History Social Habit Start Date Stop Date Quantity Comments Source Sex Assigned At Com mon [facility] History of Tobacco Use Co mmon [facility] Smoking Status Start Date Stop Date Source Never Smoker Common [facility] Medications Ordered Filled Start Stop Current [...] Clinicians Facility Department ID 2021-11-[address] [id number] 13:07[facility]01 [facility] 2021-03-10 Outpatient Leoncio [facility] [id number] Common 11:08:30 [facility] 2021-03-10 Outpatient Fang, STLMLC STLMLC [id number] Common 11:08:11 [facility] [id number] [facility] 2021-03-10 Outpatient Fang, STLMLC STLMLC [id number] Common 11:06:12 [facility] [address] [facility] 2021-09-21 2021-09-21 (TEL) STLC STLC [id number] Co mmon 00:00:00 00:00:00 [facility] 2019-10-02 2019-10-02 Outpatient COH COH PDPFECZ UWZ COH 00:00:00 00:00:00 [id number] 2019-08-27 2019-08-27 (TEL) STLC STLC [id number] Co mmon 00:00:00 00:00:00 [facility] Results This patient has no known results.
[2022-10-12] MEDS ORDERED: NA CHLORIDE 0.9% 1,000 ML ONE (09:59)
[2022-10-12 10:12] LABS: Absolute Lymphocytes (CBC) 2.7 K/uL (0.7-4.9); Hematocrit 41.1 % (36.0-45.0); Lymphocytes % 43.8 % (15.3-44.8); MCV 93.3 fL (80-100); MPV 8.1 fL (7.6-11.3); Platelets 189 thou/uL (152-406); RBC Red Blood Cell Count 4.41 M/uL (3.86-4.86)
[2022-10-12 10:24] LABS: Specific Gravity 1.024 (1.005-1.030); Transitional Epithelial <5 /HPF (None Seen); Urine Bacteria 20-50 /HPF (<20); Urine Bilirubin NEGATIVE (Negative); Urine Blood Negative (Negative); Urine Clarity Turbid (Clear); Urine Color Light-Yellow (Yellow); Urine Glucose NEGATIVE (Negative); Urine Mucus Slight /HPF (None Seen); Urine Protein TRACE (Negative); Urine RBC <5 /HPF (None Seen); Urine Urobilinogen Normal (Normal); Urine pH 5.5 (5.0-7.0)
[2022-10-12 10:48] LABS: Albumin 3.6 g/dL (3.4-5.0); Bilirubin Total 0.4 mg/dL (0.2-1.0); Potassium 4.1 mEq/L (3.5-5.1); Protein, Total 8.1 g/dL (6.4-8.2)
[2022-10-12 10:49] LABS: Blood Morphology Comment NOT SEEN (NOT SEEN); Platelet Estimate ADEQ
--- NOTE | 2022-10-12 11:28 | RAD REPORT ---
EXAM DESCRIPTION: CT - Abdomen Pelvis W Contrast - 10/12/2022 10:56 am CLINICAL HISTORY: CONSTIPATION COMPARISON: Abdomen Pelvis W Contrast dated 05/17/2015 TECHNIQUE: Thin cut axial CT imaging of the abdomen and pelvis was performed following intravenous a dministration of 100 mL Isovue 300. Multiplanar reformats were generated and reviewed. All CT scans are performed using dose optimization technique as appropriate and may include automated exposure control or mA/KV adjustment according to patient size. FINDINGS: No suspicious findings in the lung bases. The liver shows diffuse parenchymal hypoattenuation suggesting steatosis. Adrenal glands, spleen, and pancreas show no suspicious findings. Gallbladder and biliary tree are also without suspicious findi ng. Symmetric renal function is seen with no hydronephrosis or suspicious renal mass. No dilated bowel loops or bowel wall thickening. Mild colonic diverticulosis. No free air, free fluid or inflammatory stranding. No hernia, mass or bulky lymphadenopathy. Small calcified lesion approxim ating the endometrium of the uterus, may represent a degenerated small subendometrial fibroid. The ur inary bladder is without significant finding. No suspicious bony findings. IMPRESSION: No acute intra-abdominal process. Incidental findings as above, including hepatic steatosis.
--- NOTE | 2022-10-12 11:54 | ER ---
Nurse's Notes [facility] Name: Elizabeth Degroot Age: 72 yrs Sex: Female : 1950 Arrival Date: 10/12/2022 Time: 09:31 Bed 19 Private MD: Diagnosis: UTI/ Urinary tract infection, site not specified;Elevated blood-pressure reading, without diagnosis of hypertension;Constipation, unspecified Presentation: 10/12 09:40 Chief complaint: Constipation x 2 days, denies pain/N/V. Coronavirus screen: At this hb time, the client does not indicate any symptoms associated with coronavirus-19. Ebola Screen: No symptoms or risks identified at this time. Initial Sepsis Screen: Does the patient meet any 2 criteria? No. Patient's initial sepsis screen is negative. Does the patient have a suspected source of infection? No. Patient's initial sepsis screen is negative. Risk Assessment: Do you want to hurt yourself or someone else? Patient reports no desire to harm self or others. Onset of symptoms was October 10, 2022. 09:40 Method Of Arrival: Ambulatory hb 09:40 Acuity: MARTIN 3 hb Historical: - Allergies: 09:41 No Known Drug Allergies; hb - Home Meds: 09:41 atorvastatin 20 mg Oral tab 2 tabs once daily for Hypercholesterolemia [Active]; hb - PMHx: 09:41 Hyperlipidemia; Osteoporosis; hb - Immunization history:: Adult Immunizations up to date. - Social history:: Smoking status: Patient denies any tobacco usage or history of. Patient/guardian denies using alcohol. Screenin:45 [facility] ED Fall Risk Assessment (Adult) History of falling in the last 3 months, ld1 including since admission No falls in past 3 months (0 pts). Abuse screen: Denies threats or abuse. Denies injuries from another. Nutritional screening: No deficits noted. Tuberculosis screening: No symptoms or risk factors identified. Assessment: 09:45 General: Appears in no apparent distress. comfortable, Behavior is calm, cooperative, ld1 appropriate for age. Pain: Denies pain. Neuro: Level of Consciousness is awake, alert, obeys commands, Oriented to person, place, time, situation, Appropriate for age. Cardiovascular: Capillary refill < 3 seconds Patient's skin is warm and dry. Respiratory: Airway is patent Respiratory effort is even, unlabored. GI: Abdomen is round non-distended, Bowel sounds present X 4 quads. Abd is soft Abd is non tender Reports constipation. : No signs and/or symptoms were reported regarding the genitourinary system. EENT: No signs and/or symptoms were reported regarding the EENT system. Derm: No signs and/or symptoms reported regarding the dermatologic system. Musculoskeletal: No signs and/or symptoms reported regarding the musculoskeletal system. Vital Signs: 09:40 BP 183 / 74; Pulse 16; Resp 62; Temp 98.1(O); Pulse Ox 100% on R/A; Weight 72.57 kg; hb Height 5 ft. 0 in. ; Pain 0/10; 10:01 BP 173 / 76; Pulse 74; Resp 18; Pulse Ox 99% on R/A; ld1 11:20 BP 153 / 77; Pulse 67; Resp 18; Pulse Ox 96% on R/A; ld1 09:40 Body Mass Index 31.25 (72.57 kg, 152.4 cm) hb 09:40 Pain Scale: Adult hb ED Course: 09:33 Patient arrived in ED. rg4 09:34 Alfredito Rodríguez PA is PHCP. cp 09:34 Geovanni Sellers DO is Attending Physician. cp 09:41 Triage completed. hb 09:45 Julieta Sellers, RN is Primary Nurse. ld1 09:45 Patient has correct armband on for positive identification. Placed in gown. Bed in low ld1 position. Call light in reach. Side rails up X2. Pulse ox on. NIBP on. Door closed. Noise minimized. Warm blanket given. 09:45 No provider procedures requiring assistance completed. ld1 10:01 Urinalysis w/ reflexes Sent. ld1 10:01 Lipase Sent. ld1 10:01 CMP Sent. ld1 10:01 CBC with Diff Sent. ld1 10:01 Missed attempt(s): 20 gauge in right antecubital area. ld1 10:12 Inserted saline lock: 20 gauge in right forearm, using aseptic technique. ld1 10:58 CT Abd/Pelvis - IV Contrast Only In Process Unspecified. EDMS 12:00 Arm band placed on right wrist. ld1 12:00 IV discontinued, intact, bleeding controlled, No redness/swelling at site. ld1 Administered Medications: 10:12 Drug: NS 0.9% IV 500 ml Route: IV; Rate: 125 ml/hr; Site: right forearm; ld1 11:59 Drug: Rocephin IV 1 grams Route: IV; Rate: calculated rate; Site: right forearm; ld1 Medication: 09:45 VIS not applicable for this client. ld1 Outcome: 11:53 Discharge ordered by . cp 11:59 Discharged to home ambulatory. ld1 11:59 Condition: stable 11:59 Discharge instructions given to patient, Instructed on discharge instructions, follow up and referral plans. medication usage, Demonstrated understanding of instructions, follow-up care, medications, Prescriptions given X 2. 12:00 Patient left the ED. ld1 Signatures: Dispatcher [employer] EDMS Alfredito Rodríguez PA PA cp Baxter, Heather, RN RN Noris Pimentel rg4 Julieta Sellers RN RN ld1
--- NOTE | 2022-10-12 11:54 | EDPHYS ---
Physician Documentation [facility] Name: Elizabeth Degroot Age: 72 yrs Sex: Female : 1950 Arrival Date: 10/12/2022 Time: 09:31 Bed 19 Private MD: ED Physician Geovanni Sellers HPI: 10/12 09:43 This 72 yrs old Female presents to ER via Ambulatory with complaints of cp Constipation. 09:43 Onset: The symptoms/episode began/occurred today. Associated signs and symptoms: cp Pertinent positives: abdominal pain, Pertinent negatives: cough, diarrhea, fever, shortness of breath, vomiting, wheezing. Historical: - Allergies: 09:41 No Known Drug Allergies; hb - Home Meds: 09:41 atorvastatin 20 mg Oral tab 2 tabs once daily for Hypercholesterolemia [Active]; hb - PMHx: 09:41 Hyperlipidemia; Osteoporosis; hb - Immunization history:: Adult Immunizations up to date. - Social history:: Smoking status: Patient denies any tobacco usage or history of. Patient/guardian denies using alcohol. ROS: 09:46 Constitutional: Negative for body aches, chills, fever, poor PO intake. cp 09:46 Cardiovascular: Negative for chest pain, palpitations. cp 09:46 Respiratory: Negative for cough, shortness of breath, wheezing. 09:46 Abdomen/GI: Positive for constipation, Negative for vomiting, diarrhea, black/tarry stool, rectal bleeding. 09:46 Eyes: Negative for injury, pain, redness, and discharge. cp 09:46 ENT: Negative for drainage from ear(s), ear pain, sore throat, difficulty swallowing, difficulty handling secretions. 09:46 Back: Negative for pain at rest, pain with movement. 09:46 : Negative for hematuria, burning with urination. 09:46 Neuro: Negative for altered mental status, dizziness, headache, weakness. 09:46 All other systems are negative. cp Exam: 09:50 Constitutional: The patient appears in no acute distress, alert, awake, cp non-diaphoretic, non-toxic, well developed, well nourished, overweight 09:50 Head/Face: Normocephalic, atraumatic. cp 09:50 Eyes: Periorbital structures: appear normal, Conjunctiva: normal, no exudate, no injection, Sclera: no appreciated abnormality, Lids and lashes: appear normal, bilaterally. 09:50 ENT: External ear(s): are unremarkable, Nose: is normal, Mouth: Lips: moist, Oral mucosa: pink and intact, moist, Posterior pharynx: is normal, airway is patent, no erythema, no exudate. 09:50 Chest/axilla: Inspection: normal. 09:50 Cardiovascular: Rate: normal, Rhythm: regular, Edema: is not appreciated, JVD: is not appreciated. 09:50 Respiratory: the patient does not display signs of respiratory distress, Respirations: normal, no use of accessory muscles, no retractions, labored breathing, is not present, Breath sounds: are clear throughout, no decreased breath sounds, no stridor, no wheezing. 09:50 Abdomen/GI: Inspection: abdomen appears normal, Bowel sounds: active, all quadrants, Palpation: soft, in all quadrants, mild abdominal tenderness, in the right upper quadrant and left upper quadrant, rebound tenderness, is not appreciated, involuntary guarding, is not appreciated. 09:50 Back: pain, is absent, ROM is normal. 09:50 Skin: no rash present. Vital Signs: 09:40 BP 183 / 74; Pulse 16; Resp 62; Temp 98.1(O); Pulse Ox 100% on R/A; Weight 72.57 kg; hb Height 5 ft. 0 in. ; Pain 0/10; 10:01 BP 173 / 76; Pulse 74; Resp 18; Pulse Ox 99% on R/A; ld1 11:20 BP 153 / 77; Pulse 67; Resp 18; Pulse Ox 96% on R/A; ld1 09:40 Body Mass Index 31.25 (72.57 kg, 152.4 cm) hb 09:40 Pain Scale: Adult hb MDM: 09:39 Patient medically screened. 11:52 Data reviewed: vital signs, nurses notes, lab test result(s), radiologic studies, CT cp scan. 11:52 I considered the following discharge prescriptions or medication management in the emergency department Medications were administered in the Emergency Department. See MAR. Counseling: I had a detailed discussion with the patient and/or guardian regarding the historical points, exam findings, and any diagnostic results supporting the discharge/admit diagnosis, lab results, radiology results, to return to the emergency department if symptoms worsen or persist or if there are any questions or concerns that arise at home. Special discussion: Based on the patient's Hx, exam, and Dx evaluation, there is no indication for emergent surgery or inpatient Tx. It is understood by the patient/guardian that if the Sx's persist or worsen they need to return immediately for re-evaluation. 10/12 09:45 Order name: CBC with Diff; Complete Time: 11:32 10/12 11:32 Interpretation: Normal except: EOSINOPHIL % 5.6. 10/12 09:45 Order name: CMP; Complete Time: 11:32 10/12 11:32 Interpretation: Normal except: GLUC 127; GFR 69; GLOB 4.5; A/G 0.8. 10/12 09:45 Order name: Lipase; Complete Time: 11:32 10/12 09:45 Order name: Urinalysis w/ reflexes; Complete Time: 11:32 10/12 11:32 Interpretation: Normal except: [facility] Turbid; UPROT TRACE; UESTR 250; UWBC 10-20; UBACT cp 20-50. 10/12 10:28 Order name: Urine Culture [facility] 10/12 10:49 Order name: Manual Differential; Complete Time: 11:32 [facility] 10/12 11:43 Interpretation: LYM 45; EOS 7; Reviewed. 10/12 09:45 Order name: CT Abd/Pelvis - IV Contrast Only; Complete Time: 11:32 10/12 11:33 Interpretation: Report reviewed. 10/12 09:45 Order name: IV Saline Lock; Complete Time: 10:01 10/12 09:45 Order name: Labs collected and sent; Complete Time: 10:01 10/12 10:14 Order name: Labs - recollect needed: recollect green top; Complete Time: 10:14 bd Administered Medications: 10:12 Drug: NS 0.9% IV 500 ml Route: IV; Rate: 125 ml/hr; Site: right forearm; ld1 11:59 Drug: Rocephin IV 1 grams Route: IV; Rate: calculated rate; Site: right forearm; ld1 Disposition: 11:26 Co-signature as Attending Physician, Geovanni JAIME was immediately available on-site ms3 in the Emergency Department for consultation in the care of the patient. Disposition Summary: 10/12/22 11:53 Discharge Ordered Location: Home cp Problem: new cp Symptoms: have improved cp Condition: Stable cp Diagnosis - UTI/ Urinary tract infection, site not specified cp - Elevated blood-pressure reading, without diagnosis of hypertension cp - Constipation, unspecified cp Followup: cp - With: Private Physician - When: 2 - 3 days - Reason: Recheck today's complaints Discharge Instructions: - Discharge Summary Sheet cp - Constipation, Adult cp - Urinary Tract Infection, Adult cp - How to Take Your Blood Pressure, [id number]-ve-[id number] cp - DASH Eating Plan cp - Form - Blood Pressure Record Sheet cp Forms: - Medication Reconciliation Form cp - Thank You Letter cp - Antibiotic Education cp - Prescription Opioid Use cp - Patient Portal Instructions cp - Leadership Thank You Letter cp Prescriptions: - Miralax 17 gram/dose Oral powder - take 17 gram by ORAL route daily for 8-10 days as needed for constipation; 1 cp unit; Refills: 0, Product Selection Permitted - Macrobid 100 mg Oral Capsule - take 1 capsule by ORAL route every 12 hours for 7 days; 14 capsule; Refills: 0, cp Product Selection Permitted Signatures: Dispatcher [employer] Yanely Bardales Corey, PA PA cp Melina Haas, RN RN Geovanni Sellers DO DO ms3 Julieta Sellers RN RN ld1
[2022-10-12] MEDS ORDERED: CEFTRIAXONE 1000 MG/VIAL ONE (11:57)
[2022-10-12 12:10] VITALS: TEMP 98.1
[2022-10-12 12:21] VITALS: BP 153/77; O2SAT 96
== END 2022-10-12 12:00 | disposition home or self-care (01) ==
LOC: ER 09:31
DX: K59.00 Constipation, unspecified (principal); N39.0 Urinary tract infection, site not specified; R03.0 Elevated blood-pressure reading, without diagnosis of hypertension
CPT/HCPCS: 87088; 85025; 81001; 87086; 36415; 83690; 80053; 74177; Q9967; J7030; J0696

== ENCOUNTER 2022-10-12 19:11 | Emergency (ER) | payer OTHER ==
--- OUTSIDE RECORDS SUMMARY | 2022-10-12 19:14 | XMS REPORT | Continuity of Care Document ---
:1950 Author Organization [facility] t Address [address] [place] [address] Care Team Providers Name Role Phone Raza Fang Attending Clinician Unavailable Payers Payer Name Policy Type Policy Number Effective Date Expiration Date Suzie GARCIA 53 [id number] 2019 [facility] 00:00:00 [facility] MEDICARE MB [id number] 2016 [facility] NOVITAS 00:00:00 [facility] Problems Condition Condition Condition Status Onset Resolution Last Treating Co mments Source Name Details Category Date Date Treatment Clinician Date [id number] HTN, goal Problem Active Comm on below [facility] 150/90 - [facility] [id number] 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 - [facility]I onset [facility] [id number] Asymptomat Problem Active Co mmon ic [facility] hypertensi - [facility] ve urgency [facility] [id number] Body mass Problem Active Com mon index Spirit (BMI) - [facility]I 37.0-37.9, [facility] [id number] Mixed Problem Active Common hyperlipid Spirit emia - [facility] [id number] Morbid Problem Active Common (severe) Spirit obesity - CHI due to [facility] [id number] Osteopenia Problem Active Co mmon , Spirit unspecifie - CHI d location [facility] [id number] Prediabete Problem Active Co mmon s Spirit - CHI [facility] [id number] Subclinica Problem Active Com mon l [facility] hypothyroi - [facility] dism [facility] [id number] Fatigue, Problem Active Commo n unspecifie [facility] d [facility] Allergies, Adverse Reactions, Alerts This patient has no known allergies or adverse reactions. Social History Social Habit Start Date Stop Date Quantity Comments Source Sex Assigned At Com mon [facility] History of Tobacco Use Co mmon [facility] Smoking Status Start Date Stop Date Source Never Smoker Common [facility] Medications Ordered Filled Start Stop Current Ordering [...] Clinicians Facility Department ID [facility]11[facility] [id number] 13:07[facility]01 [facility] 2021-03-10 Outpatient Leoncio [facility] [id number] Common 11:08:30 [facility] 2021-03-10 Outpatient Fang, STLMLC STLMLC [id number] Common 11:08:11 [facility] [address] [facility] 2021-03-10 Outpatient Fang, STLMLC STLMLC [id number] Common 11:06:12 [facility] [address] [facility] 2021-09-21 2021-09-21 (TEL) STLC STLC [id number] Co mmon 00:00:00 00:00:00 [facility] 2019-10-02 2019-10-02 Outpatient [facility] PDPFECZ [facility] 00:00:00 00:00:00 -[id number] 2019-08-27 2019-08-27 (TEL) STLC STLC [id number] Co mmon 00:00:00 00:00:00 [facility] Results This patient has no known results.
--- NOTE | 2022-10-12 19:46 | ER ---
Nurse's Notes [facility] Name: Elizabeth Degroot Age: 72 yrs Sex: Female : 1950 Arrival Date: 10/12/2022 Time: 19:11 Bed 6 Private MD: Diagnosis: Constipation Presentation: 10/12 19:20 Chief complaint: Patient states: constipation X3 days. Coronavirus screen: Client lg3 denies travel out of the [place] in the last 14 days. At this time, the client does not indicate any symptoms associated with coronavirus-19. Ebola Screen: No symptoms or risks identified at this time. Initial Sepsis Screen: Does the patient meet any 2 criteria? No. Patient's initial sepsis screen is negative. Does the patient have a suspected source of infection? No. Patient's initial sepsis screen is negative. Risk Assessment: Do you want to hurt yourself or someone else? Patient reports no desire to harm self or others. Onset of symptoms is unknown. 19:20 Method Of Arrival: Ambulatory lg3 19:20 Acuity: MARTIN 3 lg3 Triage Assessment: 19:23 General: Appears in no apparent distress. comfortable, Behavior is calm, cooperative. lg3 Pain: Denies pain. EENT: No deficits noted. No signs and/or symptoms were reported regarding the EENT system. Neuro: No deficits noted. Garvey Agitation-Sedation Scale (RASS): 0 - Alert and Calm Level of Consciousness is awake, alert, obeys commands, Oriented to person, place, time, situation. Cardiovascular: No deficits noted. Denies chest pain, shortness of breath, Capillary refill < 3 seconds Clubbing of nail beds is absent JVD is absent Patient's skin is warm and dry. Respiratory: No deficits noted. Airway is patent Trachea midline Respiratory effort is even, unlabored, Respiratory pattern is regular, symmetrical. GI: Reports constipation. : No deficits noted. No signs and/or symptoms were reported regarding the genitourinary system. Derm: No deficits noted. No signs and/or symptoms reported regarding the dermatologic system. Skin is intact, is healthy with good turgor, Skin is dry, Skin is normal, Skin temperature is warm. Musculoskeletal: No deficits noted. No signs and/or symptoms reported regarding the musculoskeletal system. Circulation, motion, and sensation intact. Range of motion: intact in all extremities. Historical: - Allergies: 19:23 No Known Allergies; lg3 - Home Meds: 19:23 atorvastatin 20 mg Oral tab 2 tabs once daily for Hypercholesterolemia [Active]; lg3 - PMHx: 19:23 Hyperlipidemia; Osteoporosis; lg3 - PSHx: 19:23 None; lg3 - Immunization history:: Adult Immunizations up to date. - Social history:: Smoking status: Patient denies any tobacco usage or history of. Patient/guardian denies using alcohol, street drugs. Screenin:03 [facility] ED Fall Risk Assessment (Adult) History of falling in the last 3 months, jw7 including since admission No falls in past 3 months (0 pts) Score/Fall Risk Level 0 - 2 = Low Risk. Abuse screen: Denies threats or abuse. Denies injuries from another. Nutritional screening: No deficits noted. Tuberculosis screening: No symptoms or risk factors identified. Assessment: 20:03 Reassessment: Patient appears in no apparent distress at this time. No changes from jw7 previously documented assessment. Patient and/or family updated on plan of care and expected duration. Pain level reassessed. Patient is alert, oriented x 3, equal unlabored respirations, skin warm/dry/pink. 20:05 GI: jw7 Vital Signs: 19:20 BP 184 / 84; Pulse 77; Resp 16 S; Temp 98.7(O); Pulse Ox 98% on R/A; Weight 77.11 kg lg3 (R); Height 4 ft. 11 in. (R); 19:20 Body Mass Index 34.34 (77.11 kg, 149.86 cm) 3 ED Course: 19:17 Patient arrived in ED. ag3 19:23 Triage completed. lg3 19:23 Arm band placed on right wrist. lg3 19:24 Ivett Hensley FNP-C [facility]. kb 19:24 Jason Fang MD is Attending Physician. kb 19:33 Antelmo Barba, VALERIE is Primary Nurse. bp 20:03 Patient has correct armband on for positive identification. Bed in low position. Call jw7 light in reach. Provided Education on: discharge instructions. 20:03 No provider procedures requiring assistance completed. Patient did not have IV access jw7 during this emergency room visit. Administered Medications: 20:03 Drug: Glycerin (Adult) ME Suppository 1 supp Route: ME; jw7 20:05 Follow up: Response: No adverse reaction jw7 Medication: 20:05 VIS not applicable for this client. jw7 Outcome: 19:46 Discharge ordered by MD. sheldon 20:03 Discharged to home ambulatory, with family. jw7 20:03 Condition: stable 20:03 Discharge instructions given to patient, family, Instructed on discharge instructions, follow up and referral plans. Demonstrated understanding of instructions, follow-up care. 20:05 Patient left the ED. jw7 Signatures: Ivett Hensley, RECOVERY ASSISTANT-C RECOVERY ASSISTANT-Antelmo Estrada, RN RN bp Emelina Sierra Lacie, RN RN lg3 Josy Millan RN RN jw7
--- NOTE | 2022-10-12 19:47 | EDPHYS ---
Physician Documentation [facility] Name: Elizabeth Degroot Age: 72 yrs Sex: Female : 1950 Arrival Date: 10/12/2022 Time: 19:11 Bed 6 Private MD: ED Physician Jason Fang HPI: 10/12 20:32 This 72 yrs old Female presents to ER via Ambulatory with complaints of kb Constipation. 20:32 The patient presents with constipation. Onset: The symptoms/episode began/occurred 3 kb day(s) ago. The symptoms do not radiate. Associated signs and symptoms: Pertinent positives: constipation, Pertinent negatives: nausea, vomiting, and diarrhea, fever, abd pain. Modifying factors: The symptoms are alleviated by nothing, the symptoms are aggravated by nothing. The patient has experienced similar episodes in the past. The patient has been recently seen at the [facility] Emergency Department, today. Patient presents for constipation for 3 days. States she has no pain but is concerned because she has not had a bowel movement in 3 days and she needs to. States she came to the ER this evening to get a suppository. Historical: - Allergies: 19:23 No Known Allergies; lg3 - Home Meds: 19:23 atorvastatin 20 mg Oral tab 2 tabs once daily for Hypercholesterolemia [Active]; lg3 - PMHx: 19:23 Hyperlipidemia; Osteoporosis; lg3 - PSHx: 19:23 None; lg3 - Immunization history:: Adult Immunizations up to date. - Social history:: Smoking status: Patient denies any tobacco usage or history of. Patient/guardian denies using alcohol, street drugs. ROS: 20:32 Constitutional: Negative for fever, chills, and weight loss. kb 20:32 Abdomen/GI: Positive for constipation. 20:32 All other systems are negative. Exam: 20:32 Constitutional: This is a well developed, well nourished patient who is awake, alert, kb and in no acute distress. Head/Face: Normocephalic, atraumatic. ENT: Moist Mucous membranes Cardiovascular: Regular rate and rhythm with a normal S1 and S2. No gallops, murmurs, or rubs. No pulse deficits. Respiratory: Respirations even and unlabored. No increased work of breathing. Talking in full sentences Abdomen/GI: Soft, non-tender. No distention Skin: Warm, dry with normal turgor. Normal color. MS/ Extremity: Pulses equal, no cyanosis. Neurovascular intact. Full, normal range of motion. Neuro: Awake and alert, GCS 15, oriented to person, place, time, and situation. Moves all extremities. Normal gait. Vital Signs: 19:20 BP 184 / 84; Pulse 77; Resp 16 S; Temp 98.7(O); Pulse Ox 98% on R/A; Weight 77.11 kg lg3 (R); Height 4 ft. 11 in. (R); 19:20 Body Mass Index 34.34 (77.11 kg, 149.86 cm) lg3 MDM: 19:24 Patient medically screened. kb 20:32 Data reviewed: vital signs, nurses notes. kb 20:32 Differential diagnosis: bowel obstruction, non-specific abd pain, Constipation. Test kb considered but Not performed: CT: CAT scan considered to rule out bowel obstruction but was done this morning. Results reviewed, no acute findings. External Records Reviewed: Patient was seen here this morning and had CT scan, urinalysis and serum labs completed. All results reviewed.. Counseling: I had a detailed discussion with the patient and/or guardian regarding the historical points, exam findings, and any diagnostic results supporting the discharge/admit diagnosis, the need for outpatient follow up, a family practitioner, to return to the emergency department if symptoms worsen or persist or if there are any questions or concerns that arise at home. Administered Medications: 20:03 Drug: Glycerin (Adult) CT Suppository 1 supp Route: CT; jw7 20:05 Follow up: Response: No adverse reaction jw7 Disposition Summary: 10/12/22 19:46 Discharge Ordered Location: Home kb Condition: Stable kb Diagnosis - Constipation kb Followup: kb - With: Emergency Department - When: As needed - Reason: Worsening of condition Followup: kb - With: Private Physician - When: 2 - 3 days - Reason: Recheck today's complaints, Continuance of care, Re-evaluation by your physician Discharge Instructions: - Discharge Summary Sheet kb - Constipation, Adult, [id number] kb Forms: - Medication Reconciliation Form kb - Thank You Letter kb - Antibiotic Education kb - Prescription Opioid Use kb - Patient Portal Instructions kb - Leadership Thank You Letter kb Signatures: Ivett Hensley FNP-C FNP-Lilian Marquez, RN RN lg3 Josy Millan, RN RN jw7 Corrections: (The following items were deleted from the chart) 20:35 20:32 Patient presents for constipation for 3 days. States she has no pain but is kb concerned because she has not had a bowel movement in 3 days and she needs to.. kb
[2022-10-12] MEDS ORDERED: GLYCERIN PEDI RECTAL SUPP PR ONE (20:07)
[2022-10-12 20:09] VITALS: BP 184/84; TEMP 98.7; O2SAT 98
== END 2022-10-12 20:05 | disposition home or self-care (01) ==
LOC: ER 19:11
DX: K59.00 Constipation, unspecified (principal)

== ENCOUNTER 2022-10-13 12:55 | Emergency (ER) | payer OTHER ==
--- OUTSIDE RECORDS SUMMARY | 2022-10-13 12:58 | XMS REPORT | Continuity of Care Document ---
:1950 Author Organization [facility] t Address [address] [place] [address] Care Team Providers Name Role Phone Raza Fang Attending Clinician Unavailable Payers Payer Name Policy Type Policy Number Effective Date Expiration Date Suzie GARCIA 53 [id number] 2019 [facility] 00:00:00 [facility] MEDICARE MB [id number] 2016 [facility] [place]OVITAS 00:00:00 [facility] Problems Condition Condition Condition Status Onset Resolution Last Treating Co mments Source Name Details Category Date Date Treatment Clinician Date [id number] HTN, goal Problem Active Comm on below [facility] 150/90 - [facility] [id number] 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 [id number] Osteopenia Problem Active Co mmon , Spirit unspecifie - CHI d location [facility] 796063669 Prediabete Problem Active Co mmon s Spirit - CHI [facility] [id number] Subclinica Problem Active Com mon l [facility] hypothyroi - CHI dism [facility] 71653798 Fatigue, Problem Active Commo n unspecifie [facility] d [facility] Allergies, Adverse Reactions, Alerts This patient has no known allergies or adverse reactions. Social History Social Habit Start Date Stop Date Quantity Comments Source Sex Assigned At Com mon [place] History of Tobacco Use Co mmon [place] Smoking Status Start Date Stop Date Source Never Smoker Common [place] Medications Ordered Filled Start Stop Current Ordering [...] Clinicians Facility Department ID [facility] [facility] [id number] Common 13:07:01 [facility] [place] 2021-03-10 Outpatient Leoncio [facility] [id number] Common 11:08:30 [facility] [place] 2021-03-10 Outpatient Fang, STLMLC STLMLC [id number] Common 11:08:11 [facility] [address] [place] 2021-03-10 Outpatient Fang, STLMLC STLMLC [id number] Common 11:06:12 [facility] [address] [place] 2021-09-21 2021-09-21 (TEL) STLC STLC [id number] Co mmon 00:00:00 00:00:00 [place] 2019-10-02 2019-10-02 Outpatient [facility] PDPFECZ [facility] 00:00:00 00:00:00 -[id number] 2019-08-27 2019-08-27 (TEL) STLC STLC [id number] Co mmon 00:00:00 00:00:00 [place] Results This patient has no known results.
[2022-10-13] MEDS ORDERED: NA CHLORIDE 0.9% 1,000 ML ONE (14:42)
[2022-10-13] MEDS ORDERED: MAGNESIUM CITRATE 300 ML BOT ONE (14:42)
--- NOTE | 2022-10-13 15:19 | EDPHYS ---
Physician Documentation [facility] Name: Elizabeth Degroot Age: 72 yrs Sex: Female : 1950 Arrival Date: 10/13/2022 Time: 12:55 Bed 15 Private MD: ED Physician Jose Daniel Melendez HPI: 10/13 13:37 This 72 yrs old Female presents to ER via Ambulatory with complaints of rn Constipation. 13:37 The patient presents to the emergency department with Constipation. Onset: The rn symptoms/episode began/occurred 3 day(s) ago. Possible causes: unknown. The symptoms are aggravated by nothing. The symptoms are alleviated by nothing. Severity of symptoms: At their worst the symptoms were mild in the emergency department the symptoms are unchanged. The patient has not experienced similar symptoms in the past. The patient has been recently seen at the [facility] Emergency Department. Patient reports came back for persistent constipation. This is fourth visit in 5 days. Patient reports no bowel movement for 3 days. No abdominal pain. Has not tried anything at home. States does not drink water. No abdominal distention. Is passing gas. States not given the suppository last night when was here. CT abdomen pelvis obtained yesterday shows no acute findings or signs concerning for blockage.. Historical: - Allergies: 13:26 No Known Allergies; ap3 - PMHx: 13:26 Hyperlipidemia; Osteoporosis; ap3 - Immunization history:: Client reports receiving the 2nd dose of the Covid vaccine. - Social history:: Smoking status: Patient denies any tobacco usage or history of. - Family history:: not pertinent. - Hospitalizations: : No recent hospitalization is reported. ROS: 13:37 Constitutional: Negative for fever, chills, and weight loss, Eyes: Negative for injury, rn pain, redness, and discharge, Neck: Negative for injury, pain, and swelling, Cardiovascular: Negative for chest pain, palpitations, and edema, Respiratory: Negative for shortness of breath, cough, wheezing, and pleuritic chest pain, Abdomen/GI: Negative for abdominal pain, nausea, vomiting, diarrhea Back: Negative for injury and pain, : Negative for injury, bleeding, discharge, and swelling, MS/Extremity: Negative for injury and deformity, Skin: Negative for injury, rash, and discoloration, Neuro: Negative for headache, weakness, numbness, tingling, and seizure. Exam: 13:37 Constitutional: This is a well developed, well nourished patient who is awake, alert, rn and in no acute distress. Head/Face: Normocephalic, atraumatic. Cardiovascular: Regular rate and rhythm. No pulse deficits. Respiratory: No increased work of breathing, no retractions or nasal flaring. Abdomen/GI: Soft, nontender. Nondistended. Skin: Warm, dry MS/ Extremity: Pulses equal, no cyanosis. Neuro: Awake and alert, GCS 15 Vital Signs: 13:25 Pulse 69; Resp 17; Temp 97.6; Pulse Ox 98% ; Weight 140 kg; ap3 13:28 BP 168 / 66; ap3 16:40 BP 157 / 67; Pulse 65; Resp 16; Pulse Ox 98% on R/A; db MDM: 13:29 Patient medically screened. rn 15:17 Differential diagnosis: constipation, dehydration. Data reviewed: vital signs, nurses rn notes, old medical records, and as a result, I will discharge patient. Counseling: I had a detailed discussion with the patient and/or guardian regarding the historical points, exam findings, and any diagnostic results supporting the discharge/admit diagnosis, lab results, radiology results, the need for outpatient follow up, to return to the emergency department if symptoms worsen or persist or if there are any questions or concerns that arise at home. Special discussion: I discussed with the patient/guardian in detail that at this point there is no indication for admission to the hospital. It is understood, however, that if the symptoms persist or worsen the patient needs to return immediately for re-evaluation. Based on the history and exam findings, there is no indication for further emergent testing or inpatient evaluation. I discussed with the patient/guardian the need to see the primary care provider for further evaluation of the symptoms. 10/13 13:29 Order name: IV Start; Complete Time: 14:54 rn Administered Medications: 14:30 Drug: Magnesium Citrate PO Liquid 300 ml Route: PO; db 14:53 Follow up: Response: No adverse reaction db 16:52 Follow up: Response: No adverse reaction db 14:45 Drug: NS 0.9% IV 1000 ml Route: IV; Rate: 1000 ml; Site: right antecubital; db 16:52 Follow up: Response: No adverse reaction; IV Status: Completed infusion; IV Intake: db 1000ml Disposition Summary: 10/13/22 15:18 Discharge Ordered Location: Home rn Problem: an ongoing problem rn Symptoms: have improved rn Condition: Stable rn Diagnosis - Constipation, unspecified rn - Dehydration rn Followup: rn - With: Private Physician - When: As needed - Reason: Recheck today's complaints, Re-evaluation by your physician Discharge Instructions: - Discharge Summary Sheet rn - Constipation, Adult rn - Dehydration, Adult rn Forms: - Medication Reconciliation Form rn - Thank You Letter rn - Antibiotic furniture arranger - Prescription Opioid Use rn - Patient Portal Instructions rn - Leadership Thank You Letter rn Signatures: Jose Daniel Melendez MD MD rn Prokisch, Amanda, RN RN ap3 Sindy Amezquita RN RN db
--- NOTE | 2022-10-13 15:19 | ER ---
Nurse's Notes [facility] Name: Elizabeth Degroot Age: 72 yrs Sex: Female : 1950 Arrival Date: 10/13/2022 Time: 12:55 Bed 15 Private MD: Diagnosis: Constipation, unspecified;Dehydration Presentation: 10/13 13:25 Chief complaint: Patient states: she is still constipated and hasn't had a bowel ap3 movement in approx 4 days. Coronavirus screen: At this time, the client does not indicate any symptoms associated with coronavirus-19. Ebola Screen: No symptoms or risks identified at this time. Initial Sepsis Screen: Does the patient meet any 2 criteria? No. Patient's initial sepsis screen is negative. Does the patient have a suspected source of infection? No. Patient's initial sepsis screen is negative. Risk Assessment: Do you want to hurt yourself or someone else? Patient reports no desire to harm self or others. Onset of symptoms is unknown. 13:25 Method Of Arrival: Ambulatory ap3 13:25 Acuity: MARTIN 3 ap3 Triage Assessment: 13:27 General: Appears in no apparent distress. Behavior is calm, cooperative. Pain: Denies ap3 pain. Neuro: Level of Consciousness is awake, alert, obeys commands, Oriented to person, place, time, situation. Cardiovascular: Patient's skin is warm and dry. Respiratory: Airway is patent Respiratory effort is even, unlabored, Respiratory pattern is regular, symmetrical. GI: Reports constipation, discomfort and feels like she needs to have a BM but hasn't been able to. Historical: - Allergies: 13:26 No Known Allergies; ap3 - PMHx: 13:26 Hyperlipidemia; Osteoporosis; ap3 - Immunization history:: Client reports receiving the 2nd dose of the Covid vaccine. - Social history:: Smoking status: Patient denies any tobacco usage or history of. - Family history:: not pertinent. - Hospitalizations: : No recent hospitalization is reported. Screenin:27 [facility] ED Fall Risk Assessment (Adult) History of falling in the last 3 months, ap3 including since admission No falls in past 3 months (0 pts). Abuse screen: Denies threats or abuse. Nutritional screening: No deficits noted. Tuberculosis screening: No symptoms or risk factors identified. Assessment: 14:54 Reassessment: Patient appears in no apparent distress at this time. Patient and/or db family updated on plan of care and expected duration. Pain level reassessed. Patient is alert, oriented x 3, equal unlabored respirations, skin warm/dry/pink. constipation. General: Appears in no apparent distress. comfortable, Behavior is calm, cooperative. 15:36 Reassessment: No changes from previously documented assessment. Patient and/or family db updated on plan of care and expected duration. Pain level reassessed. Patient is alert, oriented x 3, equal unlabored respirations, skin warm/dry/pink. 16:51 Reassessment: Patient appears in no apparent distress at this time. Patient and/or db family updated on plan of care and expected duration. Pain level reassessed. Patient is alert, oriented x 3, equal unlabored respirations, skin warm/dry/pink. Patient states feeling better. Neuro: Level of Consciousness is awake, alert, obeys commands, Oriented to person, place, time, situation, Appropriate for age. 16:52 GI: Bowel sounds present X 4 quads. Abd is soft. db Vital Signs: 13:25 Pulse 69; Resp 17; Temp 97.6; Pulse Ox 98% ; Weight 140 kg; ap3 13:28 BP 168 / 66; ap3 16:40 BP 157 / 67; Pulse 65; Resp 16; Pulse Ox 98% on R/A; db ED Course: 12:58 Patient arrived in ED. ts1 13:12 Jose Daniel Melendez MD is Attending Physician. rn 13:26 Triage completed. ap3 13:28 Arm band placed on right wrist. ap3 13:28 Patient has correct armband on for positive identification. ap3 13:55 Patient placed in an exam room, on a stretcher. ll1 14:35 Sindy Amezquita, RN is Primary Nurse. db 14:40 Inserted saline lock: 20 gauge in right antecubital area, using aseptic technique. db 16:51 Provided Education on: DISCHARGE. db 16:51 No provider procedures requiring assistance completed. IV discontinued, intact, db bleeding controlled, No redness/swelling at site. Administered Medications: 14:30 Drug: Magnesium Citrate PO Liquid 300 ml Route: PO; db 14:53 Follow up: Response: No adverse reaction db 16:52 Follow up: Response: No adverse reaction db 14:45 Drug: NS 0.9% IV 1000 ml Route: IV; Rate: 1000 ml; Site: right antecubital; db 16:52 Follow up: Response: No adverse reaction; IV Status: Completed infusion; IV Intake: db 1000ml Medication: 16:51 VIS not applicable for this client. db Intake: 16:52 IV: 1000ml; Total: 1000ml. db Outcome: 15:18 Discharge ordered by . rn 16:51 Discharged to home ambulatory. db 16:51 Condition: stable 16:51 Discharge instructions given to patient, Instructed on discharge instructions, follow up and referral plans. 16:52 Patient left the ED. db Signatures: Jose Daniel Melendez MD MD rn Carlie Carrillo RN RN ap3 Kojo Rinaldi RN RN ll1 Sindy Amezquita RN RN db Rocio Oliveira, MARCELA PAS ts1
[2022-10-13 18:06] VITALS: TEMP 97.6; O2SAT 98
[2022-10-13 18:17] VITALS: BP 157/67
== END 2022-10-13 16:52 | disposition home or self-care (01) ==
LOC: ER 12:55
DX: K59.00 Constipation, unspecified (principal); E86.0 Dehydration; E78.5 Hyperlipidemia, unspecified
CPT/HCPCS: 96361; 96360; 99284; J7030

== ENCOUNTER 2022-10-16 23:38 | Emergency (ER) | payer OTHER ==
--- OUTSIDE RECORDS SUMMARY | 2022-10-16 23:46 | XMS REPORT | Continuity of Care Document ---
:1950 Author Organization [facility] t Address [address] [place] [address] Care Team Providers Name Role Phone Raza Fang Attending Clinician Unavailable Payers Payer Name Policy Type Policy Number Effective Date Expiration Date Suzie GARCIA 53 [id number] 2019 [facility] 00:00:00 [facility] MEDICARE MB [id number] 2016 [facility] NOVITAS 00:00:00 [facility] Problems Condition Condition Condition Status Onset Resolution Last Treating Co mments Source Name Details Category Date Date Treatment Clinician Date [id number] HTN, goal Problem Active Comm on below [facility] 150/90 - [facility] [id number] 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 - [facility] onset [facility] [id number] Asymptomat Problem Active Co mmon ic [facility] hypertensi - [facility] ve urgency [facility] [id number] Body mass Problem Active Com mon index [facility] (BMI) - [facility] 37.0-37.9, [facility] [id number] Mixed Problem Active Common hyperlipid Spirit emia - [facility] [id number] Morbid Problem Active Common (severe) Spirit obesity - [facility] due to [facility] [id number] Osteopenia Problem Active Co mmon , [facility] unspecifie - [facility] d location [facility] [id number] Prediabete Problem Active Co mmon s [facility] - [facility] [id number] Subclinica Problem Active Com mon l [facility] hypothyroi - [facility] dism [facility] [id number] Fatigue, Problem Active Commo n unspecifie [facility] d [facility] Allergies, Adverse Reactions, Alerts This patient has no known allergies or adverse reactions. Social History Social Habit Start Date Stop Date Quantity Comments Source Sex Assigned At Com mon [facility] History of Tobacco Use Co mmon [facility] Smoking Status Start Date Stop Date Source Never Smoker Common [facility] Medications Ordered Filled Start Stop [...] Clinicians Facility Department ID [facility]11[facility] [facility] [id number] Common 13:07:01 [facility] 2021-03-[address] [facility] [id number] Common 11:08:30 [facility] 2021-03-10 Outpatient Fang, STLMLC STLMLC [id number] Common 11:08:11 [facility] [id number] [facility] 2021-03-10 Outpatient Fang, STLMLC STLMLC [id number] Common 11:06:12 [facility] [address] [facility] 2021-09-21 2021-09-21 (TEL) STLC STLC [id number] Co mmon 00:00:00 00:00:00 [facility] 2019-10-02 2019-10-02 Outpatient COH COH PDPFECZ UWZ COH 00:00:00 00:00:00 [id number] 2019-08-27 2019-08-27 (TEL) STLC STLC [id number] Co mmon 00:00:00 00:00:00 [facility] Results This patient has no known results.
[2022-10-17] MEDS ORDERED: MAGNESIUM CITRATE 300 ML BOT ONE (01:28)
--- NOTE | 2022-10-17 01:39 | EDPHYS ---
Physician Documentation [facility] Name: Elizabeth Degroot Age: 72 yrs Sex: Female : 1950 Arrival Date: 10/16/2022 Time: 23:38 Bed 10 Private MD: Alfredito Wahl HPI: 10/17 01:10 This 72 yrs old Female presents to ER via Ambulatory with complaints of cp Constipation. 01:10 constipation. Patient reports last BM was 2 days ago. Patient denies abdomen pain, cp denies vomiting, denies chest pain. No other complaints expressed. Historical: - Allergies: 00:42 No Known Allergies; vc1 - PMHx: 00:42 Hyperlipidemia; Osteoporosis; vc1 - PSHx: 00:42 None; vc1 - Immunization history:: Client reports having NOT received the Covid vaccine. - Social history:: Smoking status: Patient denies any tobacco usage or history of. ROS: 01:15 Constitutional: Negative for body aches, chills, fever, poor PO intake. cp 01:15 Eyes: Negative for injury, pain, redness, and discharge. cp 01:15 ENT: Negative for drainage from ear(s), ear pain, sore throat, difficulty swallowing, difficulty handling secretions. 01:15 Cardiovascular: Negative for chest pain, edema, palpitations. 01:15 Respiratory: Negative for cough, shortness of breath, wheezing. 01:15 Abdomen/GI: Positive for constipation, Negative for abdominal pain, nausea and vomiting, diarrhea. 01:15 : Negative for urinary symptoms, hematuria, flank pain. 01:15 Neuro: Negative for altered mental status, dizziness, headache, weakness. 01:15 All other systems are negative. Exam: 01:20 Constitutional: The patient appears in no acute distress, alert, awake, comfortable, cp non-toxic, well developed, well nourished, overweight 01:20 Head/Face: Normocephalic, atraumatic. cp 01:20 Eyes: Periorbital structures: appear normal, Conjunctiva: normal, no exudate, no injection, Sclera: no appreciated abnormality, Lids and lashes: appear normal, bilaterally. 01:20 ENT: External ear(s): are unremarkable, Nose: is normal, Mouth: Lips: moist, Oral mucosa: pink and intact, moist, Posterior pharynx: is normal, airway is patent, no erythema, no exudate. 01:20 Chest/axilla: Inspection: normal. 01:20 Cardiovascular: Rate: normal, Rhythm: regular. 01:20 Respiratory: the patient does not display signs of respiratory distress, Respirations: normal, no use of accessory muscles, no retractions, labored breathing, is not present, Breath sounds: are clear throughout, no decreased breath sounds, no stridor, no wheezing. 01:20 Abdomen/GI: Inspection: abdomen appears normal, Bowel sounds: active, all quadrants, Palpation: abdomen is soft and non-tender, in all quadrants. 01:20 Back: pain, is absent, ROM is normal. Vital Signs: 00:41 BP 183 / 83; Pulse 71; Resp 18; Temp 97.3; Pulse Ox 99% ; Weight 74.84 kg; Height 5 ft. vc1 0 in. ; Pain 0/10; 01:52 BP 156 / 82; Pulse 68; Resp 18; Pulse Ox 98% on R/A; kl 00:41 Body Mass Index 32.22 (74.84 kg, 152.4 cm) vc1 00:41 Pain Scale: Adult vc1 MDM: 00:36 Patient medically screened. cp 01:15 Differential Diagnosis constipation, fecal impaction, bowel obstruction. cp 01:38 Data reviewed: vital signs, nurses notes. cp 01:38 I considered the following discharge prescriptions or medication management in the cp emergency department Medications were administered in the Emergency Department. See MAR. Counseling: I had a detailed discussion with the patient and/or guardian regarding the historical points, exam findings, and any diagnostic results supporting the discharge/admit diagnosis, to return to the emergency department if symptoms worsen or persist or if there are any questions or concerns that arise at home. Response to treatment: the patient's symptoms have mildly improved after treatment, and as a result, I will discharge patient. Administered Medications: 01:19 Drug: Magnesium Citrate PO Liquid 300 ml Route: PO; kl Disposition Summary: 10/17/22 01:39 Discharge Ordered Location: Home cp Problem: an ongoing problem cp Symptoms: have improved cp Condition: Stable cp Diagnosis - Constipation cp - Hypertensive heart disease without heart failure cp Followup: cp - With: Private Physician - When: 2 - 3 days - Reason: Recheck today's complaints Discharge Instructions: - Discharge Summary Sheet cp - Constipation, Adult cp - High-Fiber Eating Plan cp - Hypertension, Adult cp - Aspirin and Your Heart cp - Form - Blood Pressure Record Sheet cp - How to Take Your Blood Pressure cp Forms: - Medication Reconciliation Form cp - Thank You Letter cp - Antibiotic Education cp - Prescription Opioid Use cp - Patient Portal Instructions cp - Leadership Thank You Letter cp Signatures: Carito Rinaldi RN Alfredito Castorena PA PA cp Calcote, Vanessa RN RN vc1
--- NOTE | 2022-10-17 01:39 | ER ---
Nurse's Notes [facility] Name: Elizabeth Degroot Age: 72 yrs Sex: Female : 1950 Arrival Date: 10/16/2022 Time: 23:38 Bed 10 Private MD: Diagnosis: Constipation;Hypertensive heart disease without heart failure Presentation: 10/17 00:41 Chief complaint: Patient states: I have constipation. Coronavirus screen: Client denies vc1 travel out of the [place] in the last 14 days. At this time, the client does not indicate any symptoms associated with coronavirus-19. Ebola Screen: Patient negative for fever greater than or equal to 101.5 degrees Fahrenheit, and additional compatible Ebola Virus Disease symptoms Patient denies exposure to infectious person. Patient denies travel to an Ebola-affected area in the 21 days before illness onset. No symptoms or risks identified at this time. Initial Sepsis Screen: Does the patient meet any 2 criteria? No. Patient's initial sepsis screen is negative. Does the patient have a suspected source of infection? No. Patient's initial sepsis screen is negative. Risk Assessment: Do you want to hurt yourself or someone else? Patient reports no desire to harm self or others. Onset of symptoms is unknown. 00:41 Method Of Arrival: Ambulatory vc1 00:41 Acuity: MARTIN 4 vc1 Triage Assessment: 00:43 General: Appears in no apparent distress. uncomfortable, Behavior is cooperative. Pain: vc1 Denies pain. EENT: No deficits noted. No signs and/or symptoms were reported regarding the EENT system. Neuro: No deficits noted. Cardiovascular: No deficits noted. Respiratory: Airway is patent Respiratory effort is even, unlabored, Respiratory pattern is regular, symmetrical. GI: Reports constipation, Patient currently denies abdominal pain. : No deficits noted. No signs and/or symptoms were reported regarding the genitourinary system. Derm: No deficits noted. No signs and/or symptoms reported regarding the dermatologic system. Musculoskeletal: No deficits noted. No signs and/or symptoms reported regarding the musculoskeletal system. Historical: - Allergies: 00:42 No Known Allergies; vc1 - PMHx: 00:42 Hyperlipidemia; Osteoporosis; vc1 - PSHx: 00:42 None; vc1 - Immunization history:: Client reports having NOT received the Covid vaccine. - Social history:: Smoking status: Patient denies any tobacco usage or history of. Screenin:43 [facility] ED Fall Risk Assessment (Adult) History of falling in the last 3 months, vc1 including since admission No falls in past 3 months (0 pts) Confusion or Disorientation No (0 pts) Intoxicated or Sedated No (0 pts) Impaired Gait No (0 pts) Mobility Assist Device Used No (0 pt) Altered Elimination No (0 pt) Score/Fall Risk Level 0 - 2 = Low Risk Oriented to surroundings, Maintained a safe environment, Educated pt \T\ family on fall prevention, incl call for assistance when getting out of bed. Abuse screen: Denies threats or abuse. Nutritional screening: No deficits noted. Tuberculosis screening: No symptoms or risk factors identified. Assessment: 01:52 Reassessment: Patient appears in no apparent distress at this time. Patient denies pain kl at this time. 01:53 GI: Bowel sounds present X 4 quads. Abd is soft and non tender X 4 quads. kl Vital Signs: 00:41 BP 183 / 83; Pulse 71; Resp 18; Temp 97.3; Pulse Ox 99% ; Weight 74.84 kg; Height 5 ft. vc1 0 in. ; Pain 0/10; 01:52 BP 156 / 82; Pulse 68; Resp 18; Pulse Ox 98% on R/A; kl 00:41 Body Mass Index 32.22 (74.84 kg, 152.4 cm) vc1 00:41 Pain Scale: Adult vc1 ED Course: 10/16 23:44 Patient arrived in ED. es 10/17 00:34 Alfredito Rodríguez PA is PHCP. cp 00:34 Alfredito Valle MD is Attending Physician. cp 00:42 Triage completed. vc1 00:43 Arm band placed on left wrist. vc1 01:53 No provider procedures requiring assistance completed. Patient did not have IV access kl during this emergency room visit. Administered Medications: 01:19 Drug: Magnesium Citrate PO Liquid 300 ml Route: PO; kl Outcome: 01:39 Discharge ordered by . cp 01:53 Discharged to home ambulatory. kl 01:53 Condition: stable 01:53 Discharge instructions given to patient, family, Instructed on discharge instructions, follow up and referral plans. medication usage, Demonstrated understanding of instructions, follow-up care. 01:53 Patient left the ED. kl Signatures: Carito Rinaldi, RN RN Shea Chatman Corey, PA PA cp Calcote, Vanessa RN RN vc1
[2022-10-17 02:58] VITALS: BP 156/82; O2SAT 98
[2022-10-17 02:59] VITALS: TEMP 97.3
== END 2022-10-17 01:53 | disposition home or self-care (01) ==
LOC: ER 23:38
DX: K59.00 Constipation, unspecified (principal); I11.9 Hypertensive heart disease without heart failure
CPT/HCPCS: 99283

== ENCOUNTER 2022-10-27 07:09 | Emergency (ER) | payer OTHER ==
--- OUTSIDE RECORDS SUMMARY | 2022-10-27 07:12 | XMS REPORT | Continuity of Care Document ---
:1950 Author Organization [facility] t Address [address] [facility] [facility] [address] [place] [address] Care Team Providers Name Role Phone Raza Fang Attending Clinician Unavailable RM LEIGH Attending Clinician Unavailable LIANA CRUZ Attending Clinician Unavailable Payers Payer Name Policy Type Policy Number Effective Date Expiration Date S ramesh CIGNA 2 [id number] 2022 00:00:00 CIGNA 53 [id number] 2019 [facility] 00:00:00 [facility] MEDICARE MB [id number] 2016 [facility] NOVITAS 00:00:00 [facility] Problems Condition Condition Condition Status Onset Resolution Last Treating Co mments Source Name Details Category Date Date Treatment Clinician Date [id number] HTN, goal Problem Active Comm on below Spirit 150/90 - [facility] [id number] 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 - CHI onset [facility] [id number] Asymptomat Problem Active Co mmon ic Spirit hypertensi - CHI ve urgency [facility] [id number] Body mass Problem Active Com mon index Spirit (BMI) - CHI 37.0-37.9, [facility] [id number] Mixed Problem Active Common hyperlipid Spirit emia - CHI [facility] [id number] Morbid Problem Active Common (severe) Spirit obesity - CHI due to [facility] [id number] Osteopenia Problem Active Co mmon , Spirit unspecifie - CHI d location [facility] [id number] Prediabete Problem Active Co mmkevin s [facility] [id number] Subclinica Problem Active Com radha l Mitchell hypothyroi - MERVAT dism [facility] [id number] Fatigue, Problem Active Commo n unspecifie [facility] Allergies, Adverse Reactions, Alerts This patient has no known allergies or adverse reactions. Social History Social Habit Start Date Stop Date Quantity Comments Source Sex Assigned At Com radha [facility] History of Tobacco Use Co mmkevin [facility] Smoking Status Start Date Stop Date Source Never Smoker Common [facility] Medications Ordered Filled Start Stop [...] Type Clinicians Facility Department ID 2021-11-17 Outpatient Leoncio, [facility] [id number] Common 13:07:01 [facility] 2021-03-10 Outpatient Fang, STKELLEELC STLMLC [id number] Common 11:08:30 Raza 24039 [facility] 2021-03-10 Outpatient Fang, STLMLC STLMLC [id number] Common 11:08:11 Raza [id number] [facility] 2021-03-10 Outpatient Fang, STLMLC STLMLC [id number] Common 11:06:12 Raza [id number] [facility] 2022-11-21 2022-11-21 Outpatient GRAY LEIGH [id number] Gray 11:00:00 11:00:00 RM garcia 2022-11-07 2022-11-07 Outpatient GRAY CRUZ [id number] Gray 08:15:00 08:15:00 LIANA garcia 2021-09-21 2021-09-21 (TEL) STLMLC STLMLC [id number] Co mmon 00:00:00 00:00:00 [facility] 2019-10-02 2019-10-02 Outpatient COH COH PDPFECZ UWZ COH 00:00:00 00:00:00 [id number] 2019-08-27 2019-08-27 (TEL) STLMLC STLMLC [id number] Co mmon 00:00:00 00:00:00 [facility] Results This patient has no known results.
[2022-10-27] MEDS ORDERED: BISACODYL 10 MG RECTAL SUPP ONE (07:40)
[2022-10-27] MEDS ORDERED: NA CHLORIDE 0.9% 1,000 ML ONE (07:40)
[2022-10-27] MEDS ORDERED: LACTULOSE 20 GM/30 ML UCUP ONE ×2 (07:40→07:42)
[2022-10-27 08:17] LABS: Specific Gravity 1.018 (1.005-1.030); Urine Bacteria None Seen /HPF (<20); Urine Bilirubin NEGATIVE (Negative); Urine Blood 1+ (Negative); Urine Clarity Turbid (Clear); Urine Color Light-Yellow (Yellow); Urine Glucose NEGATIVE (Negative); Urine Mucus Slight /HPF (None Seen); Urine Protein NEGATIVE (Negative); Urine RBC <5 /HPF (None Seen); Urine Urobilinogen Normal (Normal); Urine pH 5.5 (5.0-7.0)
[2022-10-27 08:36] LABS: Absolute Lymphocytes (CBC) 2.4 K/uL (0.7-4.9); Bilirubin Total 0.4 mg/dL (0.2-1.0); Hematocrit 39.8 % (36.0-45.0); Lymphocytes % 40.5 % (15.3-44.8); MCV 93.3 fL (80-100); MPV 8.2 fL (7.6-11.3); Platelets 165 thou/uL (152-406); Potassium 3.6 mEq/L (3.5-5.1); Protein, Total 8.7 g/dL (6.4-8.2); RBC Red Blood Cell Count 4.26 M/uL (3.86-4.86)
[2022-10-27] MEDS ORDERED: CIPROFLOXACIN HCL 500 MG TAB ONE (08:42)
[2022-10-27] MEDS ORDERED: CEFTRIAXONE 1000 MG/VIAL ONE (08:42)
--- NOTE | 2022-10-27 09:25 | RAD REPORT ---
EXAM DESCRIPTION: CT - Head Brain Wo Cont - 10/27/2022 8:58 am CLINICAL HISTORY: CONFUSED COMPARISON: Head Brain Wo Cont dated 03/15/2020 TECHNIQUE: Noncontrast head CT images were obtained without IV contrast. Multiplanar reformats were generated and reviewed. All CT scans are performed using dose optimization technique as appropriate and may include automated exposure control or mA/KV adjustment according to patient size. FINDINGS: No intracranial hemorrhage, mass, or edema. Midline structures are unremarkable. Normal ventricular caliber for age. Osman-white matter differentiation is preserved, without evidence of acute infarct. No abnormal extra- axial fluid collections. Mastoid air cells and visualized portions of the paranasal sinuses are clear. No acute bony findings. IMPRESSION: No evidence of an acute intracranial process.
--- NOTE | 2022-10-27 09:34 | RAD REPORT ---
EXAM DESCRIPTION: CT - Abdomen Pelvis W Contrast - 10/27/2022 8:59 am CLINICAL HISTORY: ABD PAIN COMPARISON: Abdomen Pelvis W Contrast dated 10/12/2022; Abdomen Pelvis W Contrast dated 05/17/2015 TECHNIQUE: Thin cut axial CT imaging of the abdomen and pelvis was performed following intravenous a dministration of 100 mL Isovue 300. Multiplanar reformats were generated and reviewed. All CT scans are performed using dose optimization technique as appropriate and may include automated exposure control or mA/KV adjustment according to patient size. FINDINGS: No suspicious findings in the lung bases. The liver again shows diffuse parenchymal hypoattenuation suggesting steatosis. Spleen, adrenal gland s, and pancreas show no suspicious findings. Gallbladder is not well evaluated given suboptimal diste ntion. Symmetric renal function is seen with no hydronephrosis or suspicious renal mass. Stable small right lower pole cortical cyst measuring 1 cm. Right inguinal hernia containing fat. No dilated bowel loops or bowel wall thickening. No free air, free fluid or inflammatory stranding. N o suspicious mass or bulky lymphadenopathy. Small calcified fibroid in the uterus. The urinary bladde r is decompressed, limiting evaluation. No suspicious bony findings. IMPRESSION: No acute intra-abdominal process. Incidental findings as above.
--- NOTE | 2022-10-27 10:10 | ER ---
Nurse's Notes [facility] Name: Elizabeth Degroot Age: 72 yrs Sex: Female : 1950 Arrival Date: 10/27/2022 Time: 07:09 Bed 6 Private MD: Diagnosis: Dementia in other diseases classified elsewhere without behavioral disturbance;Constipation;UTI/ Urinary tract infection, site not specified Presentation: 10/27 07:14 Chief complaint: Patient states: no bm x 3 days, no pain. Coronavirus screen: At this ko1 time, the client does not indicate any symptoms associated with coronavirus-19. Ebola Screen: No symptoms or risks identified at this time. Initial Sepsis Screen: Does the patient meet any 2 criteria? No. Patient's initial sepsis screen is negative. Does the patient have a suspected source of infection? No. Patient's initial sepsis screen is negative. Risk Assessment: Do you want to hurt yourself or someone else? Patient reports no desire to harm self or others. Onset of symptoms was October 27, 2022. 07:14 Method Of Arrival: Ambulatory ko1 07:14 Acuity: MARTIN 4 ko1 09:08 Acuity: MARTIN 3 iw Triage Assessment: 07:15 General: Appears in no apparent distress. Behavior is calm, cooperative, appropriate ko1 for age. Pain: Denies pain. GI: Reports constipation. Historical: - Allergies: 07:15 No Known Allergies; ko1 - Home Meds: 07:15 atorvastatin 20 mg Oral tab 2 tabs once daily for Hypercholesterolemia [Active]; ko1 - Immunization history:: Adult Immunizations up to date. - Social history:: Smoking status: Patient denies any tobacco usage or history of. - Family history:: not pertinent. Screenin:55 [facility] ED Fall Risk Assessment (Adult) History of falling in the last 3 months, ld1 including since admission No falls in past 3 months (0 pts). Abuse screen: Denies threats or abuse. Denies injuries from another. Nutritional screening: No deficits noted. Tuberculosis screening: No symptoms or risk factors identified. Assessment: 07:55 General: Appears in no apparent distress. comfortable, Behavior is calm, cooperative, ld1 appropriate for age. Pain: Denies pain. Neuro: Level of Consciousness is awake, alert, obeys commands, Oriented to person, place, time, situation. Cardiovascular: Capillary refill < 3 seconds Patient's skin is warm and dry. Respiratory: Airway is patent Respiratory effort is even, unlabored. GI: Abdomen is round non-distended, Bowel sounds present X 4 quads. Abd is soft Abd is non tender Reports constipation. : No signs and/or symptoms were reported regarding the genitourinary system. EENT: No signs and/or symptoms were reported regarding the EENT system. Derm: No signs and/or symptoms reported regarding the dermatologic system. Musculoskeletal: No signs and/or symptoms reported regarding the musculoskeletal system. Vital Signs: 07:15 BP 166 / 71 RA Sitting (auto/lg); Pulse 75; Resp 16; Temp 98.2; Pulse Ox 97% on R/A; ko1 07:55 BP 124 / 54; Pulse 75; Resp 18; Pulse Ox 98% on R/A; ld1 09:11 BP 109 / 85; Pulse 77; Resp 18; Pulse Ox 97% on R/A; ld1 10:25 BP 110 / 84; Pulse 74; Resp 16; Temp 98; Pulse Ox 100% on R/A; iw ED Course: 07:12 Patient arrived in ED. rg4 07:15 Triage completed. ko1 07:15 Arm band placed on left wrist. Patient placed in an exam room, on a stretcher, Patient ko1 notified of wait time. 07:22 Alfredito Valle MD is Attending Physician. [facility] 07:55 Julieta Sellers, VALERIE is Primary Nurse. ld1 07:55 Patient has correct armband on for positive identification. Placed in gown. Bed in low ld1 position. Call light in reach. Side rails up X2. Pulse ox on. NIBP on. Door closed. Noise minimized. Warm blanket given. 07:55 No provider procedures requiring assistance completed. ld1 08:09 Urinalysis w/ reflexes Sent. ld1 08:09 Lipase Sent. ld1 08:09 CMP Sent. ld1 08:09 CBC with Diff Sent. ld1 08:09 Inserted saline lock: 20 gauge in left antecubital area, using aseptic technique. Blood ld1 collected. 09:00 CT Abd/Pelvis - PO and IV Contrast In Process Unspecified. EDMS 09:00 CT Head Brain wo Cont In Process Unspecified. EDMS 10:10 Houston Bland MD is Referral Physician. stan 10: Provided Education on: antibiotic use. iw 10: IV discontinued, intact, bleeding controlled, No redness/swelling at site. iw Administered Medications: :55 Drug: Lactulose PO 60 grams Volume: 45 ml; Route: PO; ld1 10: Follow up: Response: No adverse reaction iw 07:55 Drug: Dulcolax MT Suppository 10 mg Route: MT; ld1 10: Follow up: Response: No adverse reaction iw 08:08 Drug: NS 0.9% IV 1000 ml Route: IV; Rate: 1 bolus; Site: left antecubital; ld1 10:27 Follow up: IV Status: Completed infusion iw 08:40 Drug: Rocephin IV 1 grams Route: IV; Rate: per protocol; Site: left antecubital; ld1 08:50 Follow up: IV Status: Completed infusion iw 08:40 Drug: Ciprofloxacin PO 500 mg Route: PO; ld1 10: Follow up: Response: No adverse reaction iw Medication: 07:55 VIS not applicable for this client. ld1 Outcome: 10:10 Discharge ordered by . [facility] 10: Discharged to home ambulatory, with friend. iw 10: Condition: good 10:26 Discharge instructions given to patient, family, Instructed on discharge instructions, follow up and referral plans. medication usage, Demonstrated understanding of instructions, follow-up care, medications, Prescriptions given X 2. 10:27 Patient left the ED. iw Signatures: Dispatcher [employer] EDMS Alfredito Valle MD MD cha Williams, Irene, RN RN iw Noris Patiño rg4 Julieta Sellers RN RN ld1 Belen Rodriguez RN RN ko1 Corrections: (The following items were deleted from the chart) 07:16 07:15 PMHx: Hyperlipidemia; ko1 ko1 07:16 07:15 PMHx: Osteoporosis; ko1 ko1
--- NOTE | 2022-10-27 10:10 | EDPHYS ---
Physician Documentation [facility] Name: Elizabeth Degroot Age: 72 yrs Sex: Female : 1950 Arrival Date: 10/27/2022 Time: 07:09 Bed 6 Private MD: ED Physician Alfredito Valle HPI: 10/27 08:15 This 72 yrs old Female presents to ER via Ambulatory with complaints of stan Constipation. 08:15 The patient presents with abdominal distention in the upper abdomen, in the lower stan abdomen. Onset: The symptoms/episode began/occurred 3 day(s) ago. The symptoms do not radiate. Associated signs and symptoms: none. The symptoms are described as constant. Modifying factors: The symptoms are alleviated by nothing, the symptoms are aggravated by nothing. Severity of pain: At its worst the pain was very mild in the emergency department the pain is unchanged. The patient has experienced similar episodes in the past, multiple times. Historical: - Allergies: 07:15 No Known Allergies; ko1 - Home Meds: 07:15 atorvastatin 20 mg Oral tab 2 tabs once daily for Hypercholesterolemia [Active]; ko1 - Immunization history:: Adult Immunizations up to date. - Social history:: Smoking status: Patient denies any tobacco usage or history of. - Family history:: not pertinent. ROS: 08:15 Constitutional: Negative for fever, chills, and weight loss, Eyes: Negative for injury, stan pain, redness, and discharge, ENT: Negative for injury, pain, and discharge, Neck: Negative for injury, pain, and swelling, Cardiovascular: Negative for chest pain, palpitations, and edema, Respiratory: Negative for shortness of breath, cough, wheezing, and pleuritic chest pain, Back: Negative for injury and pain, : Negative for injury, bleeding, discharge, and swelling, MS/Extremity: Negative for injury and deformity, Skin: Negative for injury, rash, and discoloration, Neuro: Negative for headache, weakness, numbness, tingling, and seizure, Psych: Negative for depression, anxiety, suicide ideation, homicidal ideation, and hallucinations, Allergy/Immunology: Negative for hives, rash, and allergies, Endocrine: Negative for neck swelling, polydipsia, polyuria, polyphagia, and marked weight changes, Hematologic/Lymphatic: Negative for swollen nodes, abnormal bleeding, and unusual bruising. 08:15 Abdomen/GI: Positive for constipation. Exam: 08:15 Constitutional: This is a well developed, well nourished patient who is awake, alert, stan and in no acute distress. Head/Face: Normocephalic, atraumatic. Eyes: Pupils equal round and reactive to light, extra-ocular motions intact. Lids and lashes normal. Conjunctiva and sclera are non-icteric and not injected. Cornea within normal limits. Periorbital areas with no swelling, redness, or edema. ENT: Nares patent. No nasal discharge, no septal abnormalities noted. Tympanic membranes are normal and external auditory canals are clear. Oropharynx with no redness, swelling, or masses, exudates, or evidence of obstruction, uvula midline. Mucous membranes moist. Neck: Trachea midline, no thyromegaly or masses palpated, and no cervical lymphadenopathy. Supple, full range of motion without nuchal rigidity, or vertebral point tenderness. No Meningismus. Chest/axilla: Normal chest wall appearance and motion. Nontender with no deformity. No lesions are appreciated. Cardiovascular: Regular rate and rhythm with a normal S1 and S2. No gallops, murmurs, or rubs. Normal PMI, no JVD. No pulse deficits. Respiratory: Lungs have equal breath sounds bilaterally, clear to auscultation and percussion. No rales, rhonchi or wheezes noted. No increased work of breathing, no retractions or nasal flaring. Abdomen/GI: Soft, non-tender, with normal bowel sounds. No distension or tympany. No guarding or rebound. No evidence of tenderness throughout. Back: No spinal tenderness. No costovertebral tenderness. Full range of motion. Female : Normal external genitalia. Skin: Warm, dry with normal turgor. Normal color with no rashes, no lesions, and no evidence of cellulitis. MS/ Extremity: Pulses equal, no cyanosis. Neurovascular intact. Full, normal range of motion. Neuro: Awake and alert, GCS 15, oriented to person, place, time, and situation. Cranial nerves II-XII grossly intact. Motor strength 5/5 in all extremities. Sensory grossly intact. Cerebellar exam normal. Normal gait. Psych: Awake, alert, with orientation to person, place and time. Behavior, mood, and affect are within normal limits. Vital Signs: 07:15 BP 166 / 71 RA Sitting (auto/lg); Pulse 75; Resp 16; Temp 98.2; Pulse Ox 97% on R/A; ko1 07:55 BP 124 / 54; Pulse 75; Resp 18; Pulse Ox 98% on R/A; ld1 09:11 BP 109 / 85; Pulse 77; Resp 18; Pulse Ox 97% on R/A; ld1 10:25 BP 110 / 84; Pulse 74; Resp 16; Temp 98; Pulse Ox 100% on R/A; iw MDM: 07:22 Patient medically screened. stan 08:18 Differential diagnosis: cholecystitis, Cholelithiasis, diverticulitis, gastritis, stan non-specific abd pain, pancreatitis, Peptic Ulcer Disease, Pyelonephritis, urinary tract infection. Data reviewed: vital signs, nurses notes, lab test result(s), radiologic studies, CT scan. Consideration of Admission/Observation Escalation of care including admission/observation considered. I considered the following discharge prescriptions or medication management in the emergency department Medications were administered in the Emergency Department. See MAR. Independent interpretation of the following test(s) in the Emergency Department CT Scan: My interpretation is ct abd pelvis, reviewed. Test considered but Not performed: Ultrasound no abd usg. Care significantly affected by the following chronic conditions: Obesity. Counseling: I had a detailed discussion with the patient and/or guardian regarding the historical points, exam findings, and any diagnostic results supporting the discharge/admit diagnosis, lab results, radiology results, the need for outpatient follow up, for definitive care, a family practitioner, a neurologist. 10/27 07:23 Order name: CBC with Diff; Complete Time: 09:26 [facility] 10/27 07:23 Order name: CMP; Complete Time: 09: [facility] 10/27 07:23 Order name: Lipase; Complete Time: 09: [facility] 10/27 07:23 Order name: Urinalysis w/ reflexes; Complete Time: 08:20 stan 10/27 08:20 Order name: Urine Culture EDMS 10/27 07:23 Order name: CT Abd/Pelvis - PO and IV Contrast; Complete Time: 10:10 stan 10/27 08:20 Order name: CT Head Brain wo Cont; Complete Time: 09:26 [facility] 10/27 07:23 Order name: IV Saline Lock; Complete Time: 08:08 stan 10/27 07:23 Order name: Labs collected and sent; Complete Time: 08:08 stan Administered Medications: 07:55 Drug: Lactulose PO 60 grams Volume: 45 ml; Route: PO; ld1 10:26 Follow up: Response: No adverse reaction iw 07:55 Drug: Dulcolax AL Suppository 10 mg Route: AL; ld1 10:27 Follow up: Response: No adverse reaction iw 08:08 Drug: NS 0.9% IV 1000 ml Route: IV; Rate: 1 bolus; Site: left antecubital; ld1 10:27 Follow up: IV Status: Completed infusion iw 08:40 Drug: Rocephin IV 1 grams Route: IV; Rate: per protocol; Site: left antecubital; ld1 08:50 Follow up: IV Status: Completed infusion iw 08:40 Drug: Ciprofloxacin PO 500 mg Route: PO; ld1 10:26 Follow up: Response: No adverse reaction iw Disposition Summary: 10/27/22 10:10 Discharge Ordered Location: Home stan Problem: new stan Symptoms: have improved stan Condition: Stable stan Diagnosis - Dementia in other diseases classified elsewhere without behavioral disturbance stan - Constipation stan - UTI/ Urinary tract infection, site not specified stan Followup: stan - With: Private Physician - When: 2 - 3 days - Reason: Recheck today's complaints, Continuance of care, Re-evaluation by your physician Followup: stan - With: - When: 2 - 3 days - Reason: Recheck today's complaints, Re-evaluation by your physician Discharge Instructions: - Discharge Summary Sheet stan - Constipation, Adult stan - Dementia stan - Dysuria stan - Urinary Tract Infection, Adult stan - Constipation, Adult, [id number] stan - Urinary Tract Infection, Adult, [id number] stan - Dementia, [id number] [facility] Forms: - Medication Reconciliation Form [facility] - Thank You Letter [facility] - Antibiotic Education [facility] - Prescription Opioid Use [facility] - Patient Portal Instructions [facility] - Leadership Thank You Letter [facility] Prescriptions: - Cipro 250 mg Oral Tablet - take 1 tablet by ORAL route every 12 hours; 14 tablet; Refills: 0, Product stan Selection Permitted - Lactulose 10 gram/15 mL Oral Solution - take 30 milliliters by ORAL route once daily; 200 milliliter; Refills: 0, stan Product Selection Permitted Signatures: Dispatcher [employer] Alfredito Howell MD MD cha Sims Julieta, RN RN ld1 Belen Rodriguez RN RN ko1 Tamara Burk RN iw Corrections: (The following items were deleted from the chart) 07:15 PMHx: Hyperlipidemia; ko1 ko1 07:15 PMHx: Osteoporosis; ko1 ko1
[2022-10-27 10:58] VITALS: BP 110/84; TEMP 98; O2SAT 100
== END 2022-10-27 10:27 | disposition home or self-care (01) ==
LOC: ER 07:09
DX: K59.00 Constipation, unspecified (principal); N39.0 Urinary tract infection, site not specified; F02.80 Dementia in other diseases classified elsewhere, unspecified severity, without behavioral disturbance, psychotic disturbance, mood disturbance, and anxiety; E78.00 Pure hypercholesterolemia, unspecified
CPT/HCPCS: 96361; 87088; 85025; 81001; 87086; 36415; 83690; 80053; 70450; 74177; 96374; 99284; Q9967; J7030; J0696

== ENCOUNTER 2022-11-04 23:07 | Emergency (ER) | payer OTHER ==
--- OUTSIDE RECORDS SUMMARY | 2022-11-04 23:09 | XMS REPORT | Continuity of Care Document ---
:1950 Author Organization [facility] t Address [address] [facility] [place] [address] Care Team Providers Name Role Phone Raza Fang Attending Clinician Unavailable RM LEIGH Attending Clinician Unavailable LIANA CRUZ Attending Clinician Unavailable Payers Payer Name Policy Type Policy Number Effective Date Expiration Date S ramesh CIGNA 2 [id number] 2022 00:00:00 CIGNA 53 [id number] 2019 [facility] 00:00:00 [facility] MEDICARE MB [id number] 2016 [facility] NOVITAS 00:00:00 [facility] Problems Condition Condition Condition Status Onset Resolution Last Treating Co mments Source Name Details Category Date Date Treatment Clinician Date [id number] HTN, goal Problem Active Comm on below Spirit 150/90 - [facility] [id number] 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 [id number] Mixed Problem Active Common hyperlipid Spirit emia - CHI [facility] [id number] Morbid Problem Active Common (severe) Spirit obesity - CHI due to [facility] [id number] Osteopenia Problem Active Co mmon , Spirit unspecifie - CHI d location [facility] 343615008 Prediabete Problem Active Co mmkevin s [facility] 21598877 Subclinica Problem Active Com radha l Mitchell hypothyroi - MERVAT dism [facility] 43297960 Fatigue, Problem Active Commo n unspecifie [facility] Allergies, Adverse Reactions, Alerts This patient has no known allergies or adverse reactions. Social History Social Habit Start Date Stop Date Quantity Comments Source Sex Assigned At Com radha [facility] History of Tobacco Use Co mmkevin [facility] Smoking Status Start Date Stop Date Source Never Smoker Common [facility] Medications Ordered Filled Start Stop [...] Clinicians Facility Department ID 2021-11-17 Outpatient Leoncio, [facility] [id number] Common 13:07:01 [facility] 2021-03-10 Outpatient Fang, STLMLC STLMLC [id number] Common 11:08:30 Raza 62207 [facility] 2021-03-10 Outpatient Fang, STLMLC STLMLC [id number] Common 11:08:11 Raza 26534 [facility] 2021-03-10 Outpatient Fang, STLMLC STLMLC [id number] Common 11:06:12 Raza 45990 [facility] 2022-12-01 2022-12-01 Outpatient GRAY LEIGH [id number] Gray 08:30:00 08:30:00 RM Seybol d 2022-11-21 2022-11-21 Outpatient GRAY LEIGH [id number] Gray 11:00:00 11:00:00 RM Seybol d 2022-11-07 2022-11-07 Outpatient GRAY CRUZ [id number] Gray 08:15:00 08:15:00 LIANA Seybol d 2021-09-21 2021-09-21 (TEL) STLMLC STLMLC [id number] Co mmon 00:00:00 00:00:00 [facility] 2019-10-02 2019-10-02 Outpatient COH COH PDPFECZ UWZ COH 00:00:00 00:00:00 [id number] 2019-08-27 2019-08-27 (TEL) STLMLC STLMLC [id number] Co mmon 00:00:00 00:00:00 [facility] Results This patient has no known results.
[2022-11-04] MEDS ORDERED: MAGNESIUM CITRATE 300 ML BOT ONE (23:35)
--- NOTE | 2022-11-05 01:12 | EDPHYS ---
Physician Documentation [facility] Name: Elizabeth Degroot Age: 72 yrs Sex: Female : 1950 Arrival Date: 11/04/2022 Time: 23:07 Bed 5 Private MD: ED Physician Geovanni Sellers HPI: 11/04 23:25 This 72 yrs old Female presents to ER via EMS with complaints of Constipation. cp 23:25 The patient presents with constipation. Onset: The symptoms/episode began/occurred 4 cp day(s) ago. Associated signs and symptoms: Pertinent negatives: nausea and vomiting, fever, abdominal pain. 23:25 The patient has experienced similar episodes in the past, multiple times. cp Historical: - Home Meds: 23:19 atorvastatin 20 mg Oral tab 2 tabs once daily for Hypercholesterolemia [Active]; kd3 - Immunization history:: Adult Immunizations up to date. - Social history:: Smoking status: unknown. ROS: 23:30 Constitutional: Negative for body aches, chills, fever, poor PO intake, cp 23:30 Eyes: Negative for injury, pain, redness, and discharge, cp 23:30 Cardiovascular: Negative for chest pain, palpitations, 23:30 Abdomen/GI: Positive for constipation, Negative for abdominal pain, vomiting, diarrhea, 23:30 All other systems are negative, Exam: 23:35 Constitutional: The patient appears in no acute distress, alert, awake, comfortable, cp non-diaphoretic, non-toxic, well developed, well nourished, 23:35 Head/Face: Normocephalic, atraumatic. cp 23:35 Eyes: Periorbital structures: appear normal, Conjunctiva: normal, no exudate, no injection, Sclera: no appreciated abnormality, Lids and lashes: appear normal, bilaterally, 23:35 ENT: External ear(s): are unremarkable, Nose: is normal, Mouth: Lips: moist, Oral mucosa: moist, Posterior pharynx: is normal, airway is patent, no erythema, no exudate, 23:35 Chest/axilla: Inspection: normal, 23:35 Cardiovascular: Rate: normal, 23:35 Respiratory: the patient does not display signs of respiratory distress, Respirations: normal, no use of accessory muscles, no retractions, labored breathing, is not present, 23:35 Abdomen/GI: Inspection: obese Bowel sounds: active, all quadrants, Palpation: abdomen is soft and non-tender, in all quadrants, 23:35 Back: pain, is absent, ROM is normal, 23:35 Neuro: Orientation: to person, place \T\ time. Mentation: is normal, Motor: moves all fours, Vital Signs: 23:17 BP 167 / 68; Pulse 67; Resp 16; Temp 97.2(TE); Pulse Ox 94% on R/A; Weight 71.21 kg; kd3 MDM: 23:17 Patient medically screened. cp 23:30 Differential diagnosis: constipation, fecal impaction, bowel obstruction. cp 11/05 01:10 Data reviewed: vital signs, nurses notes, radiologic studies, plain films. cp 01:10 I considered the following discharge prescriptions or medication management in the emergency department Medications were administered in the Emergency Department. See MAR. Counseling: I had a detailed discussion with the patient and/or guardian regarding the historical points, exam findings, and any diagnostic results supporting the discharge/admit diagnosis, radiology results, the need for outpatient follow up, a supplier relationship director, to return to the emergency department if symptoms worsen or persist or if there are any questions or concerns that arise at home. Response to treatment: the patient's symptoms have markedly improved after treatment, patient with reported bowel movement in ED, and as a result, I will discharge patient. 11/04 23:17 Order name: XRAY Abdomen With Erect cp Administered Medications: 11/04 23:25 Drug: Magnesium Citrate PO Liquid 300 ml PO once Route: PO; kd3 11/05 01:18 Follow up: Response: No adverse reaction kd3 Disposition: 22:09 I was immediately available on-site in the Emergency Department for consultation in the ms3 care of the patient. Disposition Summary: 11/05/22 01:12 Discharge Ordered Notes: Location: Home cp Problem: an ongoing problem cp Symptoms: have improved cp Condition: Stable cp Diagnosis - Constipation cp Followup: cp - With: Leland Martin MD - When: 2 - 3 days - Reason: Recheck today's complaints Discharge Instructions: - Discharge Summary Sheet cp - Constipation, Adult cp Forms: - Medication Reconciliation Form cp - Thank You Letter cp - Antibiotic Education cp - Prescription Opioid Use cp - Patient Portal Instructions cp - Leadership Thank You Letter cp Prescriptions: - Miralax 17 gram Oral powder in packet - take 1 packet ORAL route daily; 20 packet; Refills: 0, Product Selection cp Permitted Signatures: Dispatcher [employer] EDAlfredito Alvarez PA PA cp Sims, Marcus, DO DO ms3 Norma Elias, RN RN kd3
--- NOTE | 2022-11-05 01:12 | ER ---
Nurse's Notes [facility] Name: Elizabeth Degroot Age: 72 yrs Sex: Female : 1950 Arrival Date: 11/04/2022 Time: 23:07 Bed 5 Private MD: Diagnosis: Constipation Presentation: 11/04 23:17 Chief complaint: Patient states: Two weeks ago i came here for constipation. The last kd3 time i had a BM was 3 to 4 days ago. I am still having issues going to the restroom so i came back. Pt denies pain. Coronavirus screen: Vaccine status: Patient reports receiving the 2nd dose of the covid vaccine. Ebola Screen: No symptoms or risks identified at this time. Initial Sepsis Screen: Does the patient meet any 2 criteria? No. Patient's initial sepsis screen is negative. Does the patient have a suspected source of infection? No. Patient's initial sepsis screen is negative. Risk Assessment: Do you want to hurt yourself or someone else? Patient reports no desire to harm self or others. Onset of symptoms was November 04, 2022. 23:17 Method Of Arrival: EMS: [facility] kd3 23:17 Acuity: MARTIN 4 kd3 Triage Assessment: 23:19 General: Appears in no apparent distress. Behavior is calm, cooperative. Pain: Denies kd3 pain. GI: Reports constipation. Historical: - Home Meds: 23:19 atorvastatin 20 mg Oral tab 2 tabs once daily for Hypercholesterolemia [Active]; kd3 - Immunization history:: Adult Immunizations up to date. - Social history:: Smoking status: unknown. Screenin/23 01:17 [facility] ED Fall Risk Assessment (Adult) History of falling in the last 3 months, kd3 including since admission No falls in past 3 months (0 pts) Confusion or Disorientation No (0 pts) Intoxicated or Sedated No (0 pts) Impaired Gait No (0 pts) Mobility Assist Device Used No (0 pt) Altered Elimination No (0 pt) Score/Fall Risk Level 0 - 2 = Low Risk Maintained a safe environment. Abuse screen: Denies threats or abuse. Denies injuries from another. Nutritional screening: No deficits noted. Tuberculosis screening: No symptoms or risk factors identified. Assessment: 01:16 Reassessment: Patient states feeling better. Patient states symptoms have improved. kd3 Neuro: Level of Consciousness is awake, alert, obeys commands, Oriented to person, place, time, situation. Cardiovascular: Patient's skin is warm and dry. Respiratory: Airway is patent Trachea midline Respiratory effort is even, unlabored, Respiratory pattern is regular, symmetrical. 01:17 GI: Bowel sounds present X 4 quads. Abd is soft and non tender X 4 quads. kd3 Vital Signs: 11/04 23:17 BP 167 / 68; Pulse 67; Resp 16; Temp 97.2(TE); Pulse Ox 94% on R/A; Weight 71.21 kg; kd3 ED Course: 23:14 Patient arrived in ED. 23:16 Alfredito Rodríguez PA is PHCP. louis 23:16 Geovanni Sellers DO is Attending Physician. cp 23:17 Norma Elias, RN is Primary Nurse. kd3 23:19 Triage completed. kd3 23:19 Arm band placed on right wrist. kd3 11/05 00:25 XRAY Abdomen With Erect In Process Unspecified. EDMS 01:11 Leland Martin MD is Referral Physician. cp 01:17 Patient has correct armband on for positive identification. Provided Education on: diet.kd3 01:17 No provider procedures requiring assistance completed. Patient did not have IV access kd3 during this emergency room visit. Administered Medications: 11/04 23:25 Drug: Magnesium Citrate PO Liquid 300 ml PO once Route: PO; kd3 11/05 01:18 Follow up: Response: No adverse reaction kd3 Medication: 01:18 VIS not applicable for this client. kd3 Outcome: 01:12 Discharge ordered by . cp 01:17 Discharged to home ambulatory, kd3 01:17 Condition: stable 01:17 Discharge instructions given to patient, Instructed on discharge instructions, follow up and referral plans. medication usage, Demonstrated understanding of instructions, follow-up care, medications, Prescriptions given X 1, 01:18 Patient left the ED. kd3 Signatures: Dispatcher [employer] EDMS Alfredito Rodríguez PA PA cp Marsh, Wendy Norma Elias, RN RN kd3
[2022-11-05 01:32] VITALS: BP 109/73; TEMP 97.4; O2SAT 100
--- NOTE | 2022-11-05 21:56 | RAD REPORT ---
EXAM DESCRIPTION: Abdomen W Erect RadLex: XR ABDOMEN 2 VIEWS SUPINE ERECT CLINICAL HISTORY: 72 years Female, CONSTIPATION COMPARISON: None. FINDINGS: AP supine and upright views of the abdomen. Nonobstructive bowel gas pattern. Artifact ove rlies the images, somewhat limiting evaluation. SPECT moderate stool in the proximal colon. No free a ir or portal venous gas identified. No definite suspicious calcifications. Degenerative changes of th e spine. IMPRESSION: Nonobstructive bowel gas pattern with probable moderate stool in the proximal colon. Electronically signed by: Jayleen Rogers MD 11/05/2022 1:03 AM CDT Due to temporary technical issues with the PACS/Fluency reporting system, reports are being signed by the in house radiologists without review as a courtesy to insure prompt reporting. The interpreting radiologist is fully responsible for the content of the report.
== END 2022-11-05 01:18 | disposition home or self-care (01) ==
LOC: ER 23:07
DX: K59.00 Constipation, unspecified (principal)
CPT/HCPCS: 74019; 99283

== ENCOUNTER 2022-11-22 12:40 | Emergency (ER) | payer OTHER ==
--- OUTSIDE RECORDS SUMMARY | 2022-11-22 12:47 | XMS REPORT | Continuity of Care Document ---
:1950 Author Organization [facility] t Address [address] [place] [address] [address] [place] [address] Care Team Providers Name Role Phone Raza Fang Attending Clinician Unavailable TOBY GORE Attending Clinician Unavailable KVNG DEL REAL Attending Clinician Unavailable BELA DENSON Attending Clinician Unavailable RM LEIGH Attending Clinician Unavailable ERICH ALBERTO Attending Clinician Unavailable [id number] Attending Clinician Unavailable LIANA CRUZ Attending Clinician Unavailable LAB90 Attending Clinician Unavailable Payers Payer Name Policy Type Policy Number Effective Date Expiration Date S ramesh CIGNA 2 [id number] 2022 00:00:00 CIGNA 53 [id number] 2019 [facility] 00:00:00 [facility] MEDICARE MB [id number] 2016 [facility] NOVITAS 00:00:00 [facility] Problems Condition Condition Condition Status Onset Resolution Last Treating Co mments Source Name Details Category Date Date Treatment Clinician Date 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 9-25 Seybold 00:00: - 00 Externa l Memory Memory Disease Active Patti loss - Not loss - Not 9-25 Se ybold Controlled Controlled 00:00: - 00 Externa l Osteoporos Osteoporos Disease Active K elsey is is 9-25 Seybold 00:00: - 00 Externa l Chronic Chronic Disease Active Patti constipati constipati 11-07 Se ybold on on 00:00: - 00 Externa l [id number] HTN, goal Problem Active Comm on below [facility] 150/90 - [facility] [id number] 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 - [facility] onset [facility] [id number] Asymptomat Problem Active Co mmon ic [facility] hypertensi - [facility] ve urgency [facility] [id number] Body mass Problem Active Com mon index [facility] (BMI) - [facility] 37.0-37.9, [facility] [id number] Mixed Problem Active Common hyperlipid [facility] emia - [facility] [id number] Morbid Problem Active Common (severe) [facility] obesity - [facility] due to [facility] [id number] Osteopenia Problem Active Co mmon , [facility] unspecifie - [facility] d location [facility] [id number] Prediabete Problem Active Co mmon s [facility] - [facility] [id number] Subclinica Problem Active Com mon l [facility] hypothyroi - [facility] dism [facility] [id number] Fatigue, Problem Active Commo n unspecifie Spirit d type - [facility] Allergies, Adverse Reactions, Alerts This patient has no known allergies or adverse reactions. Social History Social Habit Start Date Stop Date Quantity Comments Source History of Tobacco [facility] - Use [facility] Sexual orientation Patti Gibbs - External Alcohol intake 2022-11-11 2022-11-11 Lifetime Patti addison - 00:00:00 00:00:00 non-drinker External (finding) History of Social 2022-11-11 2022-11-11 Patti Gibbs - function 00:00:00 00:00:00 External Sex Ass[birth year] At [birth year] F Patti ybold - 00:00:00 00:00:00 External Smoking Status Start Date Stop Date Source Never smoked tobacco Patti flores - External Medications Ordered Filled Start Stop Current Ordering Indication Dosage Frequency Signature Comments Components Source Medication Medication Date Date Medication? Clinician (SIG) Name Name Alendronate Yes Patti Sodium 70 11-11 Seybold MG oral 13:09: - Tablet 55 Externa l Calcium Yes every 24 Patti Carb-Cholec 9-29 hours. Seybol d alciferol 13:09: - (Caltrate 55 Externa 600+D3) l 600-20 MG-MCG oral Tablet Levothyroxi 0 Yes every 24 Ke lsey ne Sodium 9-29 hours. Seybold 25 MCG oral 13:09: - Tablet 55 Externa l predniSONE 0 Yes Patti (DELTASONE) - Seybold 20 MG oral 13:09: - tablet 55 Externa l Atorvastati 0 2022- No Kelse y n Calcium -11-11 Seybold 20 MG oral 13:05: 00:00 - Tablet 27 :00 Externa l Atorvastati 0 Yes [id number] 20mg Take 1 Patti n Calcium - tablet (20 Seyb old 20 MG oral 00:00: mg total) - Tablet 00 by mouth Externa daily. l Atorvastati Yes Patti n Calcium 9-25 Seybold 20 MG oral 08:01: - Tablet 38 Externa l Alendronate 0 Yes Patti Sodium 70 9-25 Seybold MG oral 08:01: - Tablet 38 Externa l Calcium 2022-0 Yes every 24 Patti Carb-Cholec 9-25 hours. Seybol d alciferol 08:01: - (Caltrate 38 Externa 600+D3) l 600-20 MG-MCG oral Tablet Levothyroxi 0 Yes every 24 Ke lsey ne Sodium 9-25 hours. Seybold 25 MCG oral 08:01: - Tablet 38 Externa l predniSONE 2022-0 Yes Patti (DELTASONE) 9-25 Seybold 20 MG oral 08:01: - tablet 38 Externa l Lactulose 2022-0 Yes [id number] TAKE 30ML Patti 10 GM/15ML 9-25 BY MOUTH Seybo ld oral 00:00: ONCE - Solution 00 DAILY. Externa l Lactulose 2022-0 Yes [id number] TAKE 30ML Patti 10 GM/15ML 9-25 BY MOUTH Seybo ld oral 00:00: ONCE - Solution 00 DAILY. Externa l Lactulose 0 2022- No TAKE 30ML Ke lsey 10 GM/15ML 9-14 09-25 BY MOUTH Seyb old oral 00:00: 00:00 ONCE DAILY - Solution 00 :00 Externa l Alendronate Alendronate No 1{table Alendronat Sodium 35 [...] Sodium 25 MCG 25 MCG 25 MCG Immunizations Ordered Immunization Filled Immunization Date Status Commen ts Source Name Name Influenza vaccine, Unknown Completed Patti Gibbs - quadrivalent, External adjuvanted, 65+ Influenza vaccine, Unknown Completed Patti Gibbs - quadrivalent, External adjuvanted, 65+ Vital Signs Vital Name Observation Time Observation Value Comments Source Systolic blood 2022-11-11 18:12:00 153 mm[Hg] Patti Gibbs - pressure External Diastolic blood 2022-11-11 18:12:00 73 mm[Hg] Solange Gibbs - pressure External Heart rate 2022-11-11 18:12:00 60 /min Patti cunningham - External Body temperature 2022-11-11 18:12:00 36.67 Keily Marta Gibbs - External Respiratory rate 2022-11-11 18:12:00 16 /min Marta Gibbs - External Body height 2022-11-11 18:12:00 149.9 cm Patti cunningham - External Body weight 2022-11-11 18:12:00 83.008 kg Patti Larsen eybold - External BMI 2022-11-11 18:12:00 36.96 kg/m2 Patti Larsen eybold - External Systolic blood 2022-11-07 12:55:00 136 mm[Hg] Patti Seybold - pressure External Diastolic blood 2022-11-07 12:55:00 70 mm[Hg] Solange y Seybold - pressure External Heart rate 2022-11-07 12:55:00 70 /min Patti Larsen eybold - External Body temperature 2022-11-07 12:55:00 36.89 Keily Marta rodríguez Seybold - External Respiratory rate 2022-11-07 12:55:00 14 /min Marta rodríguez Seybold - External Body height 2022-11-07 12:55:00 149.9 cm Patti Larsen eybold - External Body weight 2022-11-07 12:55:00 84.823 kg Patti rodríguezbold - External BMI 2022-11-07 12:55:00 37.77 kg/m2 Patti rodríguezbold - External Procedures This patient has no known procedures. Encounters Start End Encounter Admission Attending Care Care Encounter Source Date/Time Date/Time Type Type Clinicians Facility Department ID 2021-11-17 Outpatient HERBERT Fang [facility] [id number] Common 13:07:01 Raza [id number] [facility] 2021-03-10 Outpatient Fang, HERBERT [facility] [id number] Common 11:08:30 Raza 84005 [facility] 2021-03-10 Outpatient FangHERBERT [facility] [id number] Common 11:08:11 Raza 18153 [facility] 2021-03-10 Outpatient FangHERBERT rosas [facility] [id number] Common 11:06:12 Raza [id number] [facility] 2023-03-08 2023-03-08 Outpatient PATTI GORE [id number] Patti 08:30:00 08:30:00 TOBY Seybol d 2023-02-10 2023-02-10 Outpatient PATTI DEL REAL [id number] Patti 14:00:00 14:00:00 KVNG Seybol d 2023-02-07 2023-02-07 Outpatient PREZASuzie PATTI CASTELLANO [id number] Patti 09:30:00 09:30:00 BELA Seybol d 2022-12-01 2022-12-01 Outpatient PATTI LEIGH [id number] Patti 08:30:00 08:30:00 RM Seybol d 2022-11-23 2022-11-23 Outpatient CERVANTES-CLAUDIA PATTI CASTELLANO [id number] Patti 14:00:00 14:00:00 VARA, Seybol d JASSMIN 2022-11-21 2022-11-21 Outpatient PATTI LEIGH [id number] Patti 11:00:00 11:00:00 RM Seybol d 2022-11-11 2022-11-11 Outpatient LAB39 PATTI CASTELLANO [id number] Patti 14:35:00 14:35:00 Seybol d 2022-11-11 2022-11-11 Outpatient DEL REALPATTI [id number] Patti 13:15:00 13:15:00 KVNG Seybol d 2022-11-09 2022-11-09 Outpatient PATTI CRUZ [id number] Patti 00:00:00 00:00:00 LIANA Seybol d 2022-11-07 2022-11-07 Outpatient LAB90 PATTI CASTELLANO [id number] Patti 09:15:00 09:15:00 Seybol d 2022-11-07 2022-11-07 Outpatient PATTI CRUZ [id number] Patti 08:15:00 08:15:00 LIANA Seybol d 2021-09-21 2021-09-21 (TEL) STLMLC STLMLC [id number] Co mmon 00:00:00 00:00:00 [facility] 2019-10-02 2019-10-02 Outpatient COH COH PDPFECZ UWZ COH 00:00:00 00:00:00 [id number] 2019-08-27 2019-08-27 (TEL) STLMLC STLMLC [id number] Co mmon 00:00:00 00:00:00 [facility] Results This patient has no known results.
--- NOTE | 2022-11-22 13:23 | EDPHYS ---
Physician Documentation [facility] Name: Elizabeth Degroot Age: 72 yrs Sex: Female : 1950 Arrival Date: 11/22/2022 Time: 12:40 Bed IW1 Private MD: ED Physician Jose Daniel Melendez HPI: 11/22 13:19 This 72 yrs old Female presents to ER via Unassigned with complaints of rn Constipation. 13:19 The patient presents to the emergency department with Constipation. Onset: The rn symptoms/episode began/occurred at an unknown time. Possible causes: unknown. The symptoms are aggravated by nothing. The symptoms are alleviated by nothing. Severity of symptoms: At their worst the symptoms were mild in the emergency department the symptoms are unchanged. The patient has experienced similar episodes in the past, chronically. The patient has not recently seen a physician. Patient reports chronic constipation, multiple visits, this is a 9th visit in a row for constipation without any complications found. Has not tried any medication at home. Is passing gas. No vomiting. No history of bowel obstruction. Reports does not take stool softeners or laxative at home because she is scared something bad will happen. Denies abdominal pain. No fever. No blood in stool.. - Family history:: not pertinent. - Hospitalizations: : No recent hospitalization is reported. ROS: 13:19 Constitutional: Negative for fever, chills, and weight loss, Cardiovascular: Negative rn for chest pain, palpitations, and edema, Respiratory: Negative for shortness of breath, cough, wheezing, and pleuritic chest pain, Abdomen/GI: Negative for abdominal pain, nausea, vomiting, diarrhea, positive for constipation MS/Extremity: Negative for injury and deformity, Neuro: Negative for headache, weakness, numbness, tingling, and seizure, Exam: 13:19 Constitutional: This is a well developed, well nourished patient who is awake, alert, rn and in no acute distress. ENT: Dry mucous membranes Cardiovascular: Regular rate and rhythm. No pulse deficits. Abdomen/GI: Soft, nontender, nondistended, no masses Vital Signs: 13:16 BP 158 / 82; Pulse 65; Resp 18; Temp 97.9(TE); Pulse Ox 98% ; Weight 81.65 kg; Height 5 nj1 ft. 0 in. ; 13:16 Body Mass Index 35.15 (81.65 kg, 152.4 cm) nj1 MDM: 12:50 Patient medically screened. rn 13:19 Differential diagnosis: Constipation, dehydration. Differential diagnosis: Anxiety. rn Data reviewed: vital signs, nurses notes. Counseling: I had a detailed discussion with the patient and/or guardian regarding the historical points, exam findings, and any diagnostic results supporting the discharge/admit diagnosis, the need for outpatient follow up, to return to the emergency department if symptoms worsen or persist or if there are any questions or concerns that arise at home. Special discussion: I discussed with the patient/guardian in detail that at this point there is no indication for admission to the hospital. It is understood, however, that if the symptoms persist or worsen the patient needs to return immediately for re-evaluation. Based on the history and exam findings, there is no indication for further emergent testing or inpatient evaluation. I discussed with the patient/guardian the need to see the primary care provider for further evaluation of the symptoms. ED course: Had long discussion with patient and family member regarding hydration and use of stool softener/laxatives safely at home. They understand. No abdominal tenderness or other complaints. All her other visits have shown just constipation without complication. Will DC home again with [id number] stool softeners/laxatives/water hydration.. Administered Medications: No medications were administered Disposition Summary: 11/22/22 13:22 Discharge Ordered Notes: Location: Home rn Problem: chronic rn Symptoms: are unchanged rn Condition: Stable rn Diagnosis - Constipation, unspecified rn - Dehydration rn Followup: rn - With: Private Physician - When: As needed - Reason: Recheck today's complaints, Re-evaluation by your physician Discharge Instructions: - Discharge Summary Sheet rn - Constipation, Adult rn - Dehydration, Adult rn Forms: - Medication Reconciliation Form rn - Thank You Letter rn - Antibiotic government relations director - Prescription Opioid Use rn - Patient Portal Instructions rn - Leadership Thank You Letter rn Signatures: Jose Daniel Melendez MD MD rn
--- NOTE | 2022-11-22 13:23 | ER ---
Nurse's Notes [facility] Name: Elizabeth Degroot Age: 72 yrs Sex: Female : 1950 Arrival Date: 11/22/2022 Time: 12:40 Bed IW1 Private MD: Diagnosis: Constipation, unspecified;Dehydration Presentation: 11/22 13:16 Chief complaint: Patient states: No bowel movement for 2 days, denies pain. Has not nj1 taken any medication to help constipation. Coronavirus screen: Vaccine status: Patient reports receiving the 2nd dose of the covid vaccine. Ebola Screen: Patient denies travel to an Ebola-affected area in the 21 days before illness onset. Initial Sepsis Screen: Initial Sepsis Screen: Does the patient meet any 2 criteria? No. Patient's initial sepsis screen is negative. Does the patient have a suspected source of infection? No. Patient's initial sepsis screen is negative. Risk Assessment: Do you want to hurt yourself or someone else? Patient reports no desire to harm self or others. Onset of symptoms was November 20, 2022. 13:16 Method Of Arrival: Ambulatory [facility] 13:16 Acuity: MARTIN 5 [facility] 13:16 Method Of Arrival: Ambulatory [facility] Triage Assessment: 13:23 General: Appears in no apparent distress. comfortable, Behavior is calm, cooperative, nj1 appropriate for age. Pain: Denies pain. Neuro: No deficits noted. Cardiovascular: No deficits noted. Respiratory: No deficits noted. GI: Reports constipation. - Family history:: not pertinent. - Hospitalizations: : No recent hospitalization is reported. Vital Signs: 13:16 BP 158 / 82; Pulse 65; Resp 18; Temp 97.9(TE); Pulse Ox 98% ; Weight 81.65 kg; Height 5 nj1 ft. 0 in. ; 13:16 Body Mass Index 35.15 (81.65 kg, 152.4 cm) [facility] ED Course: 12:44 Patient arrived in ED. im 12:50 Jose Daniel Melendez MD is Attending Physician. rn 13:22 Triage completed. nj1 13:22 Arm band placed on right wrist. nj1 13:29 Patient did not have IV access during this emergency room visit. nj1 13:30 Provided Education on: Discharge instructions. nj1 Administered Medications: No medications were administered Outcome: 13:22 Discharge ordered by . rn 13:29 Discharged to home ambulatory, nj1 13:29 Condition: stable 13:29 Discharge instructions given to patient, friend, Instructed on discharge instructions, follow up and referral plans. Demonstrated understanding of instructions, follow-up care, 13:30 Patient left the ED. nj1 Signatures: Jose Daniel Melendez MD MD rn Jaco, Norma, RN RN nj1 Joselyn Martino Corrections: (The following items were deleted from the chart) 14:48 14:48 Patient left the ED. nj1 nj1
[2022-11-22 15:22] VITALS: BP 158/82; TEMP 97.9; O2SAT 98
== END 2022-11-22 14:48 | disposition home or self-care (01) ==
LOC: ER 12:40
DX: K59.00 Constipation, unspecified (principal); E86.0 Dehydration

== ENCOUNTER 2022-11-30 19:37 | Emergency (ER) | payer OTHER ==
--- OUTSIDE RECORDS SUMMARY | 2022-11-30 20:12 | XMS REPORT | Continuity of Care Document ---
:1950 Author Organization [facility] t Address [address] [place] [address] [address] [place] [address] Care Team Providers Name Role Phone Raza [...] Date Expiration Date S ramesh CIGNA 2 [id number] 2022 00:00:00 CIGNA 53 [id number] 2019 [facility] 00:00:00 [facility] MEDICARE MB [id number] 2016 [facility] NOVITAS 00:00:00 [facility] Problems Condition Condition Condition Status [...] on on 00:00: - 00 Externa l [id number] HTN, goal Problem Active Comm on below [facility] 150/90 - [facility] [id number] 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 - CHI onset [facility] [id number] Asymptomat Problem Active Co mmon ic Spirit hypertensi - CHI ve urgency [facility] [id number] Body mass Problem Active Com mon index Spirit (BMI) - [facility]I 37.0-37.9, [facility] [id number] Mixed Problem Active Common hyperlipid Spirit emia - [facility] [id number] Morbid Problem Active Common (severe) Spirit obesity - CHI due to [facility] [id number] Osteopenia Problem Active Co mmon , Spirit unspecifie - CHI d location [facility] [id number] Prediabete Problem Active Co mmon s Spirit - CHI [facility] [id number] Subclinica Problem Active Com mon l Spirit hypothyroi - CHI dism [facility] 91892099 Fatigue, Problem Active Commo n unspecifie Spirit d type - [facility] Allergies, Adverse Reactions, Alerts This patient has no known allergies or adverse reactions. Social History Social Habit Start Date Stop Date Quantity Comments Source History of Tobacco [facility] - Use [facility] Sexual orientation Patti Gibbs - [...] 27 :00 Externa l Atorvastati 0 Yes [id number] 20mg Take 1 Patti n Calcium - [...] tablet 38 Externa l Lactulose 2022-0 Yes [id number] TAKE 30ML Patti 10 GM/15ML 9-25 BY MOUTH Seybo ld oral 00:00: ONCE - Solution 00 DAILY. Externa l Lactulose 2022-0 Yes [id number] TAKE 30ML Patti 10 GM/15ML 9-25 BY [...] Facility Department ID 2021-11-17 Outpatient HERBERT Fang [facility] [id number] Common 13:07:01 Raza [id number] [facility] 2021-03-10 Outpatient Fang, HERBERT [facility] [id number] Common 11:08:30 Raza [id number] [facility] 2021-03-10 Outpatient FangHERBERT [facility] [id number] Common 11:08:11 Raza 10114 [facility] 2021-03-10 Outpatient FangHERBERT rosas [facility] [id number] Common 11:06:12 Raza [id number] [facility] 2023-03-08 2023-03-08 Outpatient PATTI GORE [id number] Patti 08:30:00 08:30:00 TOBY Seybol d 2023-02-10 2023-02-10 Outpatient PATTI DEL REAL [id number] Patti 14:00:00 14:00:00 KVNG Seybol d 2023-02-07 2023-02-07 Outpatient PREZASuzie PATTI CASTELLANO [id number] Patti 09:30:00 09:30:00 BELA Seybol d 2022-12-01 2022-12-01 Outpatient PATTI LEIGH [id number] Patti 08:30:00 08:30:00 RM Seybol d 2022-11-23 2022-11-23 Outpatient CERVANTES-CLAUDIA PATTI CASTELLANO [id number] Patti 14:00:00 14:00:00 VARA, Seybol d JASSMIN 2022-11-21 2022-11-21 Outpatient PATTI LEIGH [id number] Patti 11:00:00 11:00:00 RM Seybol d 2022-11-11 2022-11-11 Outpatient LAB39 PATTI CASTELLANO [id number] Patti 14:35:00 14:35:00 Seybol d 2022-11-11 2022-11-11 Outpatient DEL REALPATTI [id number] Patti 13:15:00 13:15:00 KVNG Seybol d 2022-11-09 2022-11-09 Outpatient PATTI CRUZ [id number] Patti 00:00:00 00:00:00 LIANA Seybol d 2022-11-07 2022-11-07 Outpatient LAB90 PATTI CASTELLANO [id number] Patti 09:15:00 09:15:00 Seybol d 2022-11-07 2022-11-07 Outpatient PATTI CRUZ [id number] Patti 08:15:00 08:15:00 LIANA Seybol d 2021-09-21 2021-09-21 (TEL) STLMLC ST[facility]MLC [id number] Co mmon 00:00:00 00:00:00 Spirit - [facility] 2019-10-02 2019-10-02 Outpatient COH COH PDPFECZ UWZ COH 00:00:00 00:00:00 [id number] 2019-08-27 2019-08-27 (TEL) STLMLC STLMLC [id number] Co mmon 00:00:00 00:00:00 [facility] Results This patient has no known results.
[2022-11-30] MEDS ORDERED: LACTULOSE 20 GM/30 ML UCUP ONE (20:26)
[2022-11-30] MEDS ORDERED: FLEET ENEMA ADULT PR ONE (20:26)
--- NOTE | 2022-11-30 20:31 | ER ---
Nurse's Notes [facility] Name: Elizabeth Degroot Age: 72 yrs Sex: Female : 1950 Arrival Date: 11/30/2022 Time: 19:37 Bed 15 Private MD: Diagnosis: Constipation Presentation: 11/30 19:47 Chief complaint: Patient states: she has been constipated for 3 days. Patient denies ap3 abdominal pain, nausea and vomiting at this time. Coronavirus screen: At this time, the client does not indicate any symptoms associated with coronavirus-19. Ebola Screen: No symptoms or risks identified at this time. Initial Sepsis Screen: Does the patient meet any 2 criteria? No. Patient's initial sepsis screen is negative. Does the patient have a suspected source of infection? No. Patient's initial sepsis screen is negative. Risk Assessment: Do you want to hurt yourself or someone else? Patient reports no desire to harm self or others. Onset of symptoms was November 27, 2022. 19:47 Method Of Arrival: Ambulatory ap3 19:47 Acuity: MARTIN 3 ap3 Triage Assessment: 19:48 General: Appears in no apparent distress. Behavior is calm, cooperative, appropriate ap3 for age. Pain: Denies pain. Neuro: Level of Consciousness is awake, alert, obeys commands, Oriented to person, place, time, situation, Appropriate for age. Cardiovascular: Patient's skin is warm and dry. Respiratory: Airway is patent Respiratory effort is even, unlabored, Respiratory pattern is regular, symmetrical. GI: Reports constipation. Historical: - Allergies: 19:48 No Known Allergies; ap3 - Home Meds: 19:48 None [Active]; ap3 - PMHx: 19:48 None; ap3 - Immunization history:: Client reports receiving the 2nd dose of the Covid vaccine. - Social history:: Smoking status: Patient denies any tobacco usage or history of. Screenin:49 [facility] ED Fall Risk Assessment (Adult) History of falling in the last 3 months, ap3 including since admission No falls in past 3 months (0 pts). Abuse screen: Denies threats or abuse. Nutritional screening: No deficits noted. Tuberculosis screening: No symptoms or risk factors identified. Assessment: 20:21 General: Appears comfortable, Behavior is calm, cooperative. Pain: Denies pain. Neuro: rv Level of Consciousness is awake, alert, obeys commands, Oriented to person, place, time, situation. Cardiovascular: Capillary refill < 3 seconds Patient's skin is warm and dry. Respiratory: Airway is patent Respiratory effort is even, unlabored. GI: Bowel sounds present X 4 quads. Abd is soft and non tender X 4 quads. : No signs and/or symptoms were reported regarding the genitourinary system. Derm: Skin is intact. 20:36 General: pt passed large amount of stool. as6 Vital Signs: 19:47 BP 159 / 71; Pulse 76; Resp 18; Temp 98.1; Pulse Ox 98% ; Weight 63.5 kg; Pain 0/10; ap3 19:47 Pain Scale: Adult ap3 ED Course: 19:39 Patient arrived in ED. mr 19:40 Wilda Blunt PA-C is PHCP. sb4 19:40 Jason Fang MD is Attending Physician. sb4 19:43 Wesley Meyers RN is Primary Nurse. rv 19:48 Triage completed. ap3 19:49 Arm band placed on right wrist. ap3 19:49 Patient has correct armband on for positive identification. Bed in low position. Call ap3 light in reach. Side rails up X2. Pulse ox on. NIBP on. 20:21 Provided Education on: enema. rv 20:21 Inserted saline lock: 20 gauge in right forearm, using aseptic technique. rv 20:37 No provider procedures requiring assistance completed. IV discontinued, intact, as6 bleeding controlled, No redness/swelling at site. Pressure dressing applied. Administered Medications: 20:20 Drug: Fleet Enema AZ 133 ml AZ once; may repeat once Route: AZ; rv 20:36 Follow up: Response: No adverse reaction as6 20:20 Drug: Lactulose PO 20 grams 30 ml PO once Volume: 30 ml; Route: PO; rv 20:36 Follow up: Response: No adverse reaction as6 Medication: 20:21 VIS not applicable for this client. rv Outcome: 20:30 Discharge ordered by . sb4 20:37 Discharged to home ambulatory, as6 20:37 Condition: stable 20:37 Discharge instructions given to patient, Instructed on discharge instructions, follow up and referral plans. medication usage, Demonstrated understanding of instructions, follow-up care, medications, Prescriptions given X 1, 20:37 Patient left the ED. as6 Signatures: Frandy Juliette, Reg Ryan mr Carlie Carrillo, RN RN ap3 Wesley Meyers RN RN rv Pablito Rios RN RN as6 Wilad Blunt, GI PAAna sb4
--- NOTE | 2022-11-30 20:31 | EDPHYS ---
Physician Documentation [facility] Name: Elizabeth Degroot Age: 72 yrs Sex: Female : 1950 Arrival Date: 11/30/2022 Time: 19:37 Bed 15 Private MD: ED Physician Jason Fang HPI: 11/30 20:25 This 72 yrs old Female presents to ER via Ambulatory with complaints of sb4 Constipation. 20:25 Patient presents with chronic constipation. She has been seen here several times for sb4 the same issue. She states that she forgets to drink water and therefore gets constipated. She refuses to take any daily preventative medications because she is afraid she will have diarrhea. She denies any abdominal pain or vomiting. She is only concerned because she has not had a bowel movement in 3 days. Historical: - Allergies: 19:48 No Known Allergies; ap3 - Home Meds: 19:48 None [Active]; ap3 - PMHx: 19:48 None; ap3 - Immunization history:: Client reports receiving the 2nd dose of the Covid vaccine. - Social history:: Smoking status: Patient denies any tobacco usage or history of. ROS: 20:25 Constitutional: Negative for fever, chills, and weight loss, sb4 20:25 Abdomen/GI: Positive for constipation, 20:25 All other systems are negative, Exam: 20:25 Constitutional: This is a well developed, well nourished patient who is awake, alert, sb4 and in no acute distress. Head/Face: Normocephalic, atraumatic. Eyes: Extra-ocular motions intact. Periorbital areas with no swelling, redness, or edema. Abdomen/GI: Soft, non-tender, no distension. Skin: Warm, dry with normal turgor. Normal color with no rashes, no lesions, and no evidence of cellulitis. MS/ Extremity: Pulses equal, no cyanosis. Neurovascular intact. Full, normal range of motion. Vital Signs: 19:47 BP 159 / 71; Pulse 76; Resp 18; Temp 98.1; Pulse Ox 98% ; Weight 63.5 kg; Pain 0/10; ap3 19:47 Pain Scale: Adult ap3 MDM: 19:40 Patient medically screened. sb4 20:25 Differential diagnosis: Constipation, ileus, small bowel obstruction, fecal impaction, sb4 stercoral colitis. 12/01 02:54 Data reviewed: vital signs, nurses notes, and as a result, I will discharge patient. sb4 Counseling: I had a detailed discussion with the patient and/or guardian regarding the historical points, exam findings, and any diagnostic results supporting the discharge/admit diagnosis, the need for outpatient follow up, for definitive care, to return to the emergency department if symptoms worsen or persist or if there are any questions or concerns that arise at home. Administered Medications: 11/30 20:20 Drug: Fleet Enema AZ 133 ml AZ once; may repeat once Route: AZ; rv 20:36 Follow up: Response: No adverse reaction as6 20:20 Drug: Lactulose PO 20 grams 30 ml PO once Volume: 30 ml; Route: PO; rv 20:36 Follow up: Response: No adverse reaction as6 Disposition Summary: 11/30/22 20:30 Discharge Ordered Notes: Location: Home sb4 Problem: an ongoing problem sb4 Symptoms: have improved sb4 Condition: Stable sb4 Diagnosis - Constipation sb4 Followup: sb4 - With: Private Physician - When: As needed - Reason: Recheck today's complaints, Re-evaluation by your physician Discharge Instructions: - Discharge Summary Sheet sb4 - Constipation, Adult, [id number] sb4 Forms: - Medication Reconciliation Form sb4 - Thank You Letter sb4 - Antibiotic Education sb4 - Prescription Opioid Use sb4 - Patient Portal Instructions sb4 - Leadership Thank You Letter sb4 Prescriptions: - Colace 100 mg Oral Tablet - take 1 tablet ORAL route every 12 hours; 14 tablet; Refills: 0, Product sb4 Selection Permitted Signatures: Carlie Carrillo RN RN ap3 Wesley Meyers RN RN Wilda Jeter PA-C PA-C sb4 Pablito Rios RN as6
[2022-11-30 23:08] VITALS: BP 159/71; TEMP 98.1; O2SAT 98
== END 2022-11-30 20:37 | disposition home or self-care (01) ==
LOC: ER 19:37
DX: K59.00 Constipation, unspecified (principal)

== ENCOUNTER 2022-12-14 19:05 | Emergency (ER) | payer OTHER ==
--- OUTSIDE RECORDS SUMMARY | 2022-12-14 19:08 | XMS REPORT | Continuity of Care Document ---
:1950 Author Organization [facility] t Address [address] [place] [address] [address] [place] [address] Care Team Providers Name Role Phone Lizet Bowers Attending Clinician Unavailable Raza Fang Attending Clinician Unavailable TOBY GORE Attending Clinician Unavailable KVNG DEL REAL Attending Clinician Unavailable BELA DENSON Attending Clinician Unavailable RM LEIGH Attending Clinician Unavailable ERICH ALBERTO Attending Clinician Unavailable LAB39 Attending Clinician Unavailable LIANA CRUZ Attending Clinician Unavailable LAB90 Attending Clinician Unavailable Payers Payer Name Policy Type Policy Number Effective Date Expiration Date S ramesh CIGNA 2 [id number] 2022 00:00:00 CIGNA 53 [id number] 2019 [facility] 00:00:00 [facility] MEDICARE MB [id number] 2016 [facility] NOVITAS 00:00:00 [facility] Problems Condition Condition Condition Status [...] Osteoporos Disease Active K elsey is is 9- Seybold 00:00: - 00 Externa l Chronic Chronic Disease Active Patti constipati constipati -25 Se ybold on on 00:00: - 00 Externa l [id number] HTN, goal Problem Active Comm on below [facility] 150/90 - [facility] [id number] 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 855555473 Osteopenia Problem Active Co mmon , Spirit unspecifie - CHI d location [facility] 690574327 Prediabete Problem Active Co mmon s Spirit - [facility] 37694429 Subclinica Problem Active Com mon l Spirit hypothyroi - CHI dism [facility] [id number] Fatigue, Problem Active Commo n unspecifie Spirit d type - [facility] Allergies, Adverse Reactions, Alerts This patient has no known allergies or adverse reactions. Social History Social Habit Start Date Stop Date Quantity Comments Source History of Tobacco [facility] - Use [facility] Sexual orientation Patti Gibbs - External Alcohol intake 2022-11-11 2022-11-11 Lifetime Patti addison - 00:00:00 00:00:00 non-drinker External (finding) History of Social 2022-11-11 2022-11-11 Patti Gibbs - function 00:00:00 00:00:00 External Sex Ass[birth year] F Patti Se roqueold - 00:00:00 00:00:00 External Smoking Status Start Date Stop Date Source Never smoked tobacco Patti flores - External Medications Ordered Filled Start Stop Current Ordering Indication Dosage Frequency Signature Comments Components Source Medication Medication Date Date Medication? Clinician (SIG) Name Name Alendronate Yes Patti Sodium 70 11-11 Seybold MG oral 13:09: - Tablet 55 Externa l Calcium 2023-0 Yes every 24 Patti Carb-Cholec 9-29 hours. Seybol d alciferol 13:09: - (Caltrate 55 Externa 600+D3) l 600-20 MG-MCG oral Tablet Levothyroxi 2022-0 Yes every 24 Ke lsey ne Sodium 9-29 hours. Seybold 25 MCG oral 13:09: - Tablet 55 Externa l predniSONE 2022-0 Yes Patti (DELTASONE) 9-29 Seybold 20 MG oral 13:09: - tablet 55 Externa l Atorvastati 0 2022- No Kelse y n Calcium -29 - Seybold 20 MG oral 13:05: 00:00 - Tablet 27 :00 Externa l Atorvastati 0 Yes [id number] 20mg Take 1 Patti n Calcium 11-09 tablet (20 Seyb old 20 MG oral 00:00: mg total) - Tablet 00 by mouth Externa daily. l Atorvastati 0 Yes Patti n Calcium 9-25 Seybold 20 MG oral 08:01: - Tablet 38 Externa l Alendronate 0 Yes Patti Sodium 70 9-25 Seybold MG oral 08:01: - Tablet 38 Externa l Calcium 2022-0 Yes every 24 Patti Carb-Cholec 9-25 hours. Seybol d alciferol 08:01: - (Caltrate 38 Externa 600+D3) l 600-20 MG-MCG oral Tablet Levothyroxi 2022-0 Yes every 24 Ke lsey ne Sodium 9-25 hours. Seybold 25 MCG oral 08:01: - Tablet 38 Externa l predniSONE 2022-0 Yes Patti (DELTASONE) 9-25 Seybold 20 MG oral 08:01: - tablet 38 Externa l Lactulose 2022-0 Yes [id number] TAKE 30ML Patti 10 GM/15ML 9-25 BY MOUTH Seybo ld oral 00:00: ONCE - Solution 00 DAILY. Externa l Lactulose 2022-0 Yes [id number] TAKE 30ML Patti 10 GM/15ML 9-25 BY MOUTH Seybo ld oral 00:00: ONCE - Solution 00 DAILY. Externa l Lactulose 2022-0 2022- No TAKE 30ML Ke lsey 10 [...] Body height 2022-11-11 18:12:00 149.9 cm Patti S eybold - External Body weight 2022-11-11 18:12:00 83.008 kg Patti Larsen eybold - External BMI 2022-11-11 18:12:00 36.96 kg/m2 Patti Larsen eybold - External Systolic blood 2022-11-07 12:55:00 136 mm[Hg] Patti Freyybold - pressure External Diastolic blood 2022-11-07 12:55:00 70 mm[Hg] Soalnge y Seybold - pressure External Heart rate 2022-11-07 12:55:00 70 /min Patti Larsen eybold - External Body temperature 2022-11-07 12:55:00 36.89 Keily Marta rodríguez Seybold - External Respiratory rate 2022-11-07 12:55:00 14 /min Marta rodríguez Seybold - External Body height 2022-11-07 12:55:00 149.9 cm Patti rodríguezbold - External Body weight 2022-11-07 12:55:00 84.823 kg Patti rodríguezbold - External BMI 2022-11-07 12:55:00 37.77 kg/m2 Patti rodríguezbold - External Procedures This patient has no known procedures. Encounters Start End Encounter Admission Attending Care Care Encounter Source Date/Time Date/Time Type Type Clinicians Facility Department ID 2022-12-07 Outpatient Courtneyagadam, [facility] [id number] Common 14:47:00 Lizet [id number] [facility] 2022-12-02 Outpatient STKELLEELC [facility] [id number] Common 11:06:00 [id number] [facility] 2021-11-17 Outpatient Fang, STKELLEELC [facility] [id number] Common 13:07:01 Raza [id number] [facility] 2021-03-10 Outpatient Fang, STKELLEELC [facility] [id number] Common 11:08:30 Raza 84801 [facility] 2021-03-10 Outpatient Fang, [facility] [id number] Common 11:08:11 Raza 25882 [facility] 2021-03-10 Outpatient Fang, ST[facility]LEELC [facility] [id number] Common 11:06:12 Raza [id number] [facility] 2023-03-08 2023-03-08 Outpatient PATTI GORE [id number] Patti 08:30:00 08:30:00 TOBY Seybol d 2023-02-10 2023-02-10 Outpatient PATTI DEL REAL [id number] Patti 14:00:00 14:00:00 KVNG Seybol d 2023-02-07 2023-02-07 Outpatient PREPATTI RUBIO [id number] Patti 09:30:00 09:30:00 BELA Seybol d 2022-12-01 2022-12-01 Outpatient PATTI LEIGH [id number] Patti 08:30:00 08:30:00 RM Seybol d 2022-11-23 2022-11-23 Outpatient CERVANTES-CLAUDIA PATTI CASTELLANO [id number] Patti 14:00:00 14:00:00 VARA, Seybol d JASSMIN 2022-11-21 2022-11-21 Outpatient PATTI LEIGH [id number] Patti 11:00:00 11:00:00 RM Seybol d 2022-11-11 2022-11-11 Outpatient LAB39 PATTI CASTELLANO [id number] Patti 14:35:00 14:35:00 Seybol d 2022-11-11 2022-11-11 Outpatient PATTI DEL REAL [id number] Patti 13:15:00 13:15:00 KVNG Seybol d 2022-11-09 2022-11-09 Outpatient PATTI CRUZ [id number] Patti 00:00:00 00:00:00 LIANA Seybol d 2022-11-07 2022-11-07 Outpatient LAB90 PATTI CASTELLANO [id number] Patti 09:15:00 09:15:00 Seybol d 2022-11-07 2022-11-07 Outpatient PATTI CRUZ [id number] Patti 08:15:00 08:15:00 LIANA Seybol d 2021-09-21 2021-09-21 (TEL) [facility]LMLC [facility] [id number] Co mmon 00:00:00 00:00:00 [facility] 2019-10-02 2019-10-02 Outpatient COH COH PDPFECZ [facility] 00:00:00 00:00:00 [id number] 2019-08-27 2019-08-27 (TEL) STLMLC STLC [id number] Co mmon 00:00:00 00:00:00 [facility] Results This patient has no known results.
--- NOTE | 2022-12-14 19:37 | EDPHYS ---
Physician Documentation [facility] Name: Elizabeth Degroot Age: 72 yrs Sex: Female : 1950 Arrival Date: 12/14/2022 Time: 19:05 Bed IW3 Private MD: ED Physician Jaylen Toro HPI: 12/15 00:25 This 72 yrs old Female presents to ER via Ambulatory with complaints of kb Constipation. 00:25 Patient is a 72-year-old female who presents for constipation for 3 days. Denies kb nausea, vomiting, abdominal pain, fever. Patient been seen multiple times for this in the past, has been given multiple treatments that have all been successful. Patient has not tried any [id number] treatment.. Historical: - Allergies: 12/14 19:34 No Known Allergies; ha1 - Immunization history:: Adult Immunizations unknown. - Social history:: Smoking status: Patient denies any tobacco usage or history of. ROS: 12/15 00:24 Constitutional: Negative for fever, chills, and weight loss, kb Abdomen/GI: Positive for constipation, All other systems are negative, Exam: 00:24 Constitutional: This is a well developed, well nourished patient who is awake, alert, kb and in no acute distress. Head/Face: Normocephalic, atraumatic. ENT: Moist Mucous membranes Cardiovascular: Regular rate Respiratory: Respirations even and unlabored. No increased work of breathing. Talking in full sentences Abdomen/GI: Soft, non-tender. No distention Skin: Warm, dry with normal turgor. Normal color. MS/ Extremity: Pulses equal, no cyanosis. Neurovascular intact. Full, normal range of motion. Neuro: Awake and alert, GCS 15, oriented to person, place, time, and situation. Moves all extremities. Normal gait. Vital Signs: 12/14 19:28 BP 140 / 72; Pulse 72; Resp 17 S; Temp 98.1; Pulse Ox 98% on R/A; Weight 79.38 kg; ha1 Height 5 ft. 4 in. ; 19:28 Body Mass Index 30.04 (79.38 kg, 162.56 cm) ha1 MDM: 19:11 Patient medically screened. kb 12/15 00:24 Differential diagnosis: constipation, bowel obstruction, fecal impaction. Data kb reviewed: vital signs, nurses notes. Test considered but Not performed: X-ray: kub considered, but pt has no abd tenderness, abd soft. CT: ct considered but abd soft and nontender. Counseling: I had a detailed discussion with the patient and/or guardian regarding the historical points, exam findings, and any diagnostic results supporting the discharge/admit diagnosis, the need for outpatient follow up, a family practitioner, to return to the emergency department if symptoms worsen or persist or if there are any questions or concerns that arise at home. Administered Medications: 12/14 19:39 Drug: Magnesium Citrate PO Liquid 300 ml PO once Route: PO; ha1 19:41 Follow up: Response: No adverse reaction ha1 Disposition Summary: 12/14/22 19:37 Discharge Ordered Notes: Location: Home kb Condition: Stable kb Diagnosis - Constipation kb Followup: kb - With: Emergency Department - When: As needed - Reason: Worsening of condition Followup: kb - With: Private Physician - When: 2 - 3 days - Reason: Recheck today's complaints, Continuance of care, Re-evaluation by your physician Discharge Instructions: - Discharge Summary Sheet kb - Constipation, Adult, Rdxc-le-Tblc kb Forms: - Medication Reconciliation Form kb - Thank You Letter kb - Antibiotic Education kb - Prescription Opioid Use kb - Patient Portal Instructions kb - Leadership Thank You Letter kb Addendum: 12/19/2022 10:07 I was immediately available for consultation during this patient's visit. I did not e c2 personally see the patient or guide the patient's care.. Signatures: Ivett Hensley, GOLD-C GOLD-Brittany Holley RN RN ha1 Jaylen Toro MD MD 2
--- NOTE | 2022-12-14 19:37 | ER ---
Nurse's Notes [facility] Name: Elizabeth Degroot Age: 72 yrs Sex: Female : 1950 Arrival Date: 12/14/2022 Time: 19:05 Bed IW3 Private MD: Diagnosis: Constipation Presentation: 12/14 19:28 Chief complaint: Patient states: I have been constipated for the past three days and my ha1 stomach feels very bloated. Coronavirus screen: Vaccine status: Patient reports receiving the 2nd dose of the covid vaccine. Moderna. Ebola Screen: No symptoms or risks identified at this time. Initial Sepsis Screen: Does the patient meet any 2 criteria? No. Patient's initial sepsis screen is negative. Does the patient have a suspected source of infection? No. Patient's initial sepsis screen is negative. Risk Assessment: Do you want to hurt yourself or someone else? Patient reports no desire to harm self or others. Onset of symptoms was December 14, 2022. 19:28 Method Of Arrival: Ambulatory ha1 19:28 Acuity: MARTIN 5 ha1 Triage Assessment: 19:34 General: Appears comfortable, Behavior is calm, cooperative. Pain: Denies pain. Neuro: ha1 Level of Consciousness is awake, alert, obeys commands, Oriented to person, place, time, situation. Cardiovascular: Capillary refill < 3 seconds Patient's skin is warm and dry. GI: Abdomen is round non-distended, Bowel sounds present X 4 quads. Abd is soft and non tender Reports constipation. Derm: Skin is pink, warm \T\ dry. Musculoskeletal: Circulation, motion, and sensation intact. Historical: - Allergies: 19:34 No Known Allergies; ha1 - Immunization history:: Adult Immunizations unknown. - Social history:: Smoking status: Patient denies any tobacco usage or history of. Screenin:36 [facility] ED Fall Risk Assessment (Adult) History of falling in the last 3 months, ha1 including since admission No falls in past 3 months (0 pts) Confusion or Disorientation No (0 pts) Intoxicated or Sedated No (0 pts) Impaired Gait No (0 pts) Mobility Assist Device Used No (0 pt) Altered Elimination No (0 pt) Score/Fall Risk Level 0 - 2 = Low Risk Oriented to surroundings, Maintained a safe environment, Educated pt \T\ family on fall prevention, incl call for assistance when getting out of bed. Abuse screen: Denies threats or abuse. Denies injuries from another. Nutritional screening: No deficits noted. Tuberculosis screening: No symptoms or risk factors identified. Vital Signs: 19:28 BP 140 / 72; Pulse 72; Resp 17 S; Temp 98.1; Pulse Ox 98% on R/A; Weight 79.38 kg; ha1 Height 5 ft. 4 in. ; 19:28 Body Mass Index 30.04 (79.38 kg, 162.56 cm) ha1 ED Course: 19:10 Patient arrived in ED. ag3 19:11 Ivett Hens[facility] F[facility]-C [facility] kb 19:11 Jaylen Toro MD is Attending Physician. kb 19:34 Triage completed. ha1 19:39 Arm band placed on right wrist. ha1 19:39 No provider procedures requiring assistance completed. Patient did not have IV access ha1 during this emergency room visit. 19:40 Provided Education on: drinking water to prevent constipation . ha1 19:41 Patient has correct armband on for positive identification. ha1 Administered Medications: 19:39 Drug: Magnesium Citrate PO Liquid 300 ml PO once Route: PO; ha1 19:41 Follow up: Response: No adverse reaction ha1 Medication: 19:36 VIS not applicable for this client. ha1 Outcome: 19:37 Discharge ordered by . kb 19:40 Discharged to home with family, ha1 19:40 Condition: stable 19:40 Discharge instructions given to patient, family, Instructed on discharge instructions, follow up and referral plans. Demonstrated understanding of instructions, follow-up care, 19:41 Patient left the ED. ha1 Signatures: Ivett Hensley FNP-C FNP-Emelina Joseph ag3 Brittany Nguyễn, RN RN ha1
[2022-12-14] MEDS ORDERED: MAGNESIUM CITRATE 300 ML BOT ONE (19:51)
[2022-12-14 20:02] VITALS: BP 140/72; TEMP 98.1; O2SAT 98
== END 2022-12-14 19:41 | disposition home or self-care (01) ==
LOC: ER 19:05
DX: K59.00 Constipation, unspecified (principal)
CPT/HCPCS: 99283

== ENCOUNTER 2022-12-19 20:09 | Emergency (ER) | payer OTHER ==
--- OUTSIDE RECORDS SUMMARY | 2022-12-19 20:13 | XMS REPORT | Continuity of Care Document ---
:1950 Author Organization [facility] t Address [address] [place] [address] [address] [place] [address] Care Team Providers Name Role Phone Lizet Bowers Attending Clinician Unavailable Raza Fang Attending Clinician Unavailable TOBY GORE Attending Clinician Unavailable KVNG DEL REAL Attending Clinician Unavailable BELA DENSON Attending Clinician Unavailable LIANA CRUZ Attending Clinician Unavailable RM LEIGH Attending Clinician Unavailable ERICH ALBERTO Attending Clinician Unavailable LAB39 Attending Clinician Unavailable LAB90 Attending Clinician Unavailable Payers Payer Name Policy Type Policy Number Effective Date Expiration Date S ramesh CIGNA 2 [id number] 2022 00:00:00 CIGNA 53 [id number] 2019 [facility] 00:00:00 [facility] MEDICARE MB [id number] 2016 [facility] NOVITAS 00:00:00 [facility] Problems Condition Condition Condition Status Onset Resolution [...] on on 00:00: - 00 Externa l [id number] HTN, goal Problem Active Comm on below [facility] 150/90 - [facility] [id number] 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 - [facility] onset [facility] [id number] Asymptomat Problem Active Co mmon ic [facility] hypertensi - [facility] ve urgency [facility] [id number] Body mass Problem Active Com mon index [facility] (BMI) - [facility] 37.0-37.9, [facility] [id number] Mixed Problem Active Common hyperlipid Spirit emia - [facility] [id number] Morbid Problem Active Common (severe) [facility] obesity - [facility] due to [facility] [id number] Osteopenia Problem Active Co mmon , [facility] unspecifie - [facility] d location [facility] [id number] Prediabete Problem Active Co mmon s [facility] - [facility] [id number] Subclinica Problem Active Com mon l [facility] hypothyroi - [facility] dism [facility] [id number] Fatigue, Problem Active Commo n unspecifie Spirit d type - [facility] Allergies, Adverse Reactions, Alerts This patient has no known allergies or adverse reactions. Social History Social Habit Start Date Stop Date Quantity Comments Source History of Tobacco [facility] - Use [facility] Sexual orientation Patti Gibbs - [...] 27 :00 Externa l Atorvastati 0 Yes [id number] 20mg Take 1 Patti n Calcium 11-09 tablet (20 Seyb old 20 MG oral 00:00: mg total) - Tablet 00 by mouth Externa daily. l Atorvastati 0 Yes Patti n Calcium 9-25 Seybold 20 MG oral 08:01: - Tablet 38 Externa l Alendronate 0 Yes Patti Sodium 70 9-25 Seybold MG oral 08:01: - Tablet 38 Externa l Calcium 2022-0 Yes every 24 Patit Carb-Cholec 9-25 hours. Seybol d alciferol 08:01: - (Caltrate 38 Externa 600+D3) l 600-20 MG-MCG oral Tablet Levothyroxi 2022-0 Yes every 24 Ke lsey ne Sodium 9-25 hours. Seybold 25 MCG oral 08:01: - Tablet 38 Externa l predniSONE 2022-0 Yes Patti (DELTASONE) 9-25 Seybold 20 MG oral 08:01: - tablet 38 Externa l Lactulose 2022-0 Yes [id number] TAKE 30ML Patti 10 GM/15ML 9-25 BY MOUTH Seybo ld oral 00:00: ONCE - Solution 00 DAILY. Externa l Lactulose 2022-0 Yes [id number] TAKE 30ML Patti 10 GM/15ML 9-25 BY [...] Facility Department ID 2022-12-07 Outpatient Courtneyagadam, [facility] [id number] Common 14:47:[id number] [facility] 2022-12-02 Outpatient [facility] [id number] Common 11:06:[id number] [facility] 2021-11-17 Outpatient Fang, [facility] [id number] Common 13:07:[id number] [facility] 2021-03-10 Outpatient Fang, [facility] [id number] Common 11:08:[id number] [facility] 2021-03-10 Outpatient Fang, [facility] [id number] Common 11:08:[id number] [facility] 2021-03-10 Outpatient Fang, [facility] [id number] Common 11:06:[id number] [facility] 2023-03-08 2023-03-08 Outpatient PATTI GORE [id number] Patti 08:30:00 08:30:00 TOBY Seybol d 2023-02-10 2023-02-10 Outpatient PATTI DEL REAL [id number] Patti 14:00:00 14:00:00 KVNG Seybol d 2023-02-07 2023-02-07 Outpatient PATTI DENSON [id number] Patti 09:30:00 09:30:00 BELA Seybol d 2022-12-19 2022-12-19 Outpatient PATTI DENSON [id number] Patti 00:00:00 00:00:00 BELA Seybol d 2022-12-19 2022-12-19 Outpatient PATTI CRUZ [id number] Patti 00:00:00 00:00:00 LIANA Seybol d 2022-12-01 2022-12-01 Outpatient PATTI LEIGH [id number] Patti 08:30:00 08:30:00 RM Seybol d 2022-11-23 2022-11-23 Outpatient CERVANTES-CLAUDIA PATTI CASTELLANO [id number] Patti 14:00:00 14:00:00 VARA, Seybol d JASSMIN 2022-11-21 2022-11-21 Outpatient PATTI LEIGH [id number] Patti 11:00:00 11:00:00 RM Seybol d 2022-11-11 2022-11-11 Outpatient LAB39 PATTI CASTELLANO [id number] Patti 14:35:00 14:35:00 Seybol d 2022-11-11 2022-11-11 Outpatient PATTI DEL REAL [id number] Patti 13:15:00 13:15:00 KVNG Seybol d 2022-11-09 2022-11-09 Outpatient PATTI CRUZ [id number] Patti 00:00:00 00:00:00 LIANA Seybol d 2022-11-07 2022-11-07 Outpatient LAB90 PATTI CASTELLANO [id number] Patti 09:15:00 09:15:00 ybol radha 2022-11-07 2022-11-07 Outpatient PATTI CRUZ [id number] Patti 08:15:00 08:15:00 LIANA garcia 2021-09-21 2021-09-21 (TEL) STLMLC STLMLC [id number] Co mmon 00:00:00 00:00:00 [facility] 2019-10-02 2019-10-02 Outpatient COH COH PDPFECZ UWZ COH 00:00:00 00:00:00 [id number] 2019-08-27 2019-08-27 (TEL) STLMLC STLMLC [id number] Co mmon 00:00:00 00:00:00 [facility] Results This patient has no known results.
[2022-12-19] MEDS ORDERED: MAGNESIUM CITRATE 300 ML BOT ONE (20:58)
[2022-12-19] MEDS ORDERED: cloNIDine HCL 0.1 MG TAB ONE (20:58)
--- NOTE | 2022-12-19 21:29 | ER ---
Nurse's Notes [facility] Name: Elizabeth Degroot Age: 72 yrs Sex: Female : 1950 Arrival Date: 12/19/2022 Time: 20:09 Bed IW7 Private MD: Diagnosis: Slow transit constipation;Essential (primary) hypertension;Anxiety about health Presentation: 12/19 20:25 Chief complaint: Patient states: Constipation for 2 days, has not taken any OTC meds. [facility] 20:25 Coronavirus screen: Vaccine status: Patient reports receiving the 2nd dose of the covid nj1 vaccine. Ebola Screen: Patient denies travel to an Ebola-affected area in the 21 days before illness onset. Initial Sepsis Screen: Does the patient meet any 2 criteria? No. Patient's initial sepsis screen is negative. Does the patient have a suspected source of infection? No. Patient's initial sepsis screen is negative. Risk Assessment: Do you want to hurt yourself or someone else? Patient reports no desire to harm self or others. Onset of symptoms was December 18, 2022. 20:25 Method Of Arrival: Ambulatory [facility] 20:25 Acuity: MARTIN 4 nj1 Historical: - Allergies: 20:41 No Known Allergies; nj1 - Immunization history:: Client reports receiving the 2nd dose of the Covid vaccine. - Social history:: Smoking status: Patient denies any tobacco usage or history of. - Family history:: not pertinent. Screenin:34 [facility] ED Fall Risk Assessment (Adult) Confusion or Disorientation No (0 pts) jj7 Intoxicated or Sedated No (0 pts) Impaired Gait No (0 pts) Mobility Assist Device Used No (0 pt) Altered Elimination No (0 pt) Score/Fall Risk Level 0 - 2 = Low Risk Oriented to surroundings, Maintained a safe environment, Educated pt \T\ family on fall prevention, incl call for assistance when getting out of bed. Abuse screen: Denies threats or abuse. Nutritional screening: No deficits noted. Tuberculosis screening: No symptoms or risk factors identified. Assessment: 20:32 General: Appears in no apparent distress. comfortable, Behavior is calm, cooperative, jj7 appropriate for age. Pain: Denies pain. GI: Reports constipation. 20:32 GI: Abd is soft and non tender X 4 quads. Abd is non tender X 4 quads. jj7 Vital Signs: 20:25 BP 180 / 72; Pulse 71; Resp 18; Temp 98.2(O); Pulse Ox 96% on R/A; Weight 72.57 kg; nj1 Height 4 ft. 10 in. ; Pain 0/10; 21:32 BP 157 / 74; Pulse 71; Resp 17; Pulse Ox 98% ; Pain 0/10; jj7 20:25 Body Mass Index 33.44 (72.57 kg, 147.32 cm) nj1 20:25 Pain Scale: Adult nj1 21:32 Pain Scale: Adult j7 ED Course: 20:23 Patient arrived in ED. gm2 20:23 Bebeto Soriano MD is Attending Physician. sp4 20:34 Patient has correct armband on for positive identification. Bed in low position. Call jj7 light in reach. Side rails up X 1. 20:34 No provider procedures requiring assistance completed. jj7 20:41 Triage completed. nj1 20:41 Arm band placed on. nj1 21:26 Eliceo Radford MD is Referral Physician. sp4 21:32 Provided Education on: MEDICATION USAGE. jj7 21:32 Patient did not have IV access during this emergency room visit. jj7 Administered Medications: 20:53 Drug: Magnesium Citrate PO Liquid 300 ml PO once Route: PO; jj7 21:32 Follow up: Response: No adverse reaction jj7 20:53 Drug: cloNIDine PO 0.2 mg PO once Route: PO; jj7 21:30 Follow up: Response: No adverse reaction jj7 21:32 Follow up: Response: Blood pressure is lowered jj7 Medication: 21:32 VIS not applicable for this client. jj7 Outcome: 21:28 Discharge ordered by . sp4 21:32 Discharged to home ambulatory, jj7 21:32 Condition: good 21:32 Discharge instructions given to patient, Instructed on discharge instructions, follow up and referral plans. medication usage, Demonstrated understanding of instructions, follow-up care, medications, Prescriptions given X 1, 23:35 Patient left the ED. jj7 Signatures: Leticia Ken RN RN jj7 Bebeto Soriano MD MD sp4 Zunilda Kirby RN RN nj1 Ashli Montero
--- NOTE | 2022-12-19 21:29 | EDPHYS ---
Physician Documentation [facility] Name: Elizabeth Degroot Age: 72 yrs Sex: Female : 1950 Arrival Date: 12/19/2022 Time: 20:09 Bed IW7 Private MD: ED Physician Bebeto Soriano HPI: 12/19 20:23 This 72 yrs old Female presents to ER via Unassigned with complaints of sp4 Constipation. 20:42 72-year-old female with history of hypertension, history of mild dementia and history sp4 of chronic constipation presents with complaint of constipation. Patient states last bowel movement was 3 days ago. Patient denied any pain or discomfort denied vomiting and denied any other symptoms. This is patient's visit #13 further constipation complaint. . 20:43 Since September 2022 patient averages approximately 4 visits of a month for constipation sp4 complaint. On 11/04/2022 patient had abdominal x-ray that has revealed nonobstructive bowel gas pattern with probable moderate stool in the proximal colon. Additionally on October 27, 2022 patient was investigated with labs and a CT abdomen and pelvis with IV contrast. CT has revealed no dilated bowel loops no free air no inflammatory stranding no mass or bulky lymphadenopathy, small calcified fibroid in the uterus. No acute intra-abdominal process. No suspicious bony findings. Symmetric renal function. Diffuse parenchymal hypoattenuation of the liver suggesting steatosis. No other significant problems on the CAT scan. In fact there was no sign of significant constipation discovered. Patient states that she is worried about the fact that she has not had bowel movement for the past 2 days. . Patient did not take any medication for constipation at home prior to arrival.. . Patient states she has not visited accounts payable representative or any other outpatient practitioner for constipation because she has problems with transportation. . Historical: - Allergies: 20:41 No Known Allergies; nj1 - Immunization history:: Client reports receiving the 2nd dose of the Covid vaccine. - Social history:: Smoking status: Patient denies any tobacco usage or history of. - Family history:: not pertinent. ROS: 20:43 Constitutional: Negative for fever, chills, and weight loss, positive for sp4 constipation 20:43 All other systems are negative, Exam: 20:43 Constitutional: This is a well developed, well nourished patient who is awake, alert, sp4 and in no acute distress. Anxious appearing and hypertensive on arrival Head/Face: Normocephalic, atraumatic. Eyes: Pupils equal round and reactive to light, extra-ocular motions intact. Lids and lashes normal. Conjunctiva and sclera are not injected. Cornea within normal limits. Periorbital areas with no swelling, redness, or edema. ENT: Nares patent. No nasal discharge, no septal abnormalities noted. Tympanic membranes are normal and external auditory canals are clear. Oropharynx with no redness, swelling, or masses, exudates, or evidence of obstruction, uvula midline. Mucous membranes moist. Neck: Trachea midline, no thyromegaly or masses palpated, and no cervical lymphadenopathy. Supple, full range of motion without nuchal rigidity, or vertebral point tenderness. Chest/axilla: Normal chest wall appearance and motion. Nontender with no deformity. No lesions are appreciated. Cardiovascular: Regular rate and rhythm with a normal S1 and S2. No gallops, murmurs, or rubs. Normal PMI, no JVD. No pulse deficits. Respiratory: Lungs have equal breath sounds bilaterally, clear to auscultation and percussion. No rales, rhonchi or wheezes noted. No increased work of breathing, no retractions or nasal flaring. Abdomen/GI: Soft, non-tender, with normal bowel sounds. No distension or tympany. No guarding or rebound. No evidence of tenderness throughout. Back: No spinal tenderness. No costovertebral tenderness. Skin: Warm, dry with normal turgor. Normal color with no rashes, no lesions, and no evidence of cellulitis. MS/ Extremity: Pulses equal, no cyanosis. Neurovascular intact. Full, normal range of motion. Neuro: Awake and alert, GCS 15, oriented to person, place, time, and situation. Cranial nerves II-XII grossly intact. Motor strength 5/5 in all extremities. Sensory grossly intact. Psych: Awake, alert, with orientation to person, place and time. Behavior, mood, and affect are within normal limits Vital Signs: 20:25 BP 180 / 72; Pulse 71; Resp 18; Temp 98.2(O); Pulse Ox 96% on R/A; Weight 72.57 kg; nj1 Height 4 ft. 10 in. ; Pain 0/10; 21:32 BP 157 / 74; Pulse 71; Resp 17; Pulse Ox 98% ; Pain 0/10; jj7 20:25 Body Mass Index 33.44 (72.57 kg, 147.32 cm) nj1 20:25 Pain Scale: Adult nj1 21:32 Pain Scale: Adult jj7 MDM: 20:49 Patient medically screened. sp4 12/20 01:26 Differential Diagnosis altered mental status, sepsis, flu. Data reviewed: vital signs, sp4 nurses notes, old medical records, 13 provider visits for constipation. Consideration of Admission/Observation Escalation of care including admission/observation considered. ED course: Patient was given certain medications for elevated blood pressure and also some mag citrate as well for constipation. Will prescribe docusate as needed daily for constipation. Will advised to see Dr. Xie with gastroenterology. . Administered Medications: 12/19 20:53 Drug: Magnesium Citrate PO Liquid 300 ml PO once Route: PO; jj7 21:32 Follow up: Response: No adverse reaction jj7 20:53 Drug: cloNIDine PO 0.2 mg PO once Route: PO; jj7 21:30 Follow up: Response: No adverse reaction jj7 21:32 Follow up: Response: Blood pressure is lowered jj7 Disposition Summary: 12/19/22 21:28 Discharge Ordered Notes: Location: Home sp4 Problem: new sp4 Symptoms: have improved sp4 Condition: Stable sp4 Diagnosis - Slow transit constipation sp4 - Essential (primary) hypertension sp4 - Anxiety about health sp4 Followup: sp4 - With: Eliceo Radford MD - When: 7 - 10 days - Reason: Recheck today's complaints Discharge Instructions: - Discharge Summary Sheet sp4 - Constipation, Adult sp4 Forms: - Patient Portal Instructions sp4 Prescriptions: - docusate sodium 250 mg Oral capsule - take 2 capsule ORAL route daily as needed for constipation; 60 capsule; sp4 Refills: 0, Product Selection Permitted Signatures: Leticia Ken RN RN jj7 Bebeto Soriano MD MD sp4 Zunilda Kirby RN RN nj1
[2022-12-19 23:49] VITALS: TEMP 98.2
[2022-12-19 23:51] VITALS: BP 157/74; O2SAT 98
== END 2022-12-19 23:35 | disposition home or self-care (01) ==
LOC: ER 20:09
DX: K59.01 Slow transit constipation (principal); I10 Essential (primary) hypertension; F06.4 Anxiety disorder due to known physiological condition
CPT/HCPCS: 99283

== ENCOUNTER 2023-01-22 22:59 | Emergency (ER) | payer OTHER ==
--- OUTSIDE RECORDS SUMMARY | 2023-01-22 23:03 | XMS REPORT | Continuity of Care Document ---
Author Name Unknown Address [address] [place] [address] [facility] Address 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 Name Role Phone Lizet Bowers Attending Clinician Unavail able Raza Fang Attending Clinician Unavailable TOBY GORE Attending Clinician Unavailable KVNG DEL REAL Attending Clinician Unava BELA Wang Attending Clinician Unavailable LIANA CRUZ Attending Clinician UnaRM Cosby Attending Clinician Unavailable ERICH ALBERTO Attending Clinician U navailable [id number] Attending Clinician Unavailable LAB90 Attending Clinician Unavailable Payers Payer Name Policy Type Policy Number Effective Date Expirati on Date Source CIGNA 2 [id number] 2022 00:00:00 CIGNA 53 [id number] 2019 00:00:00 [facility] MEDICARE NOV[place] MB [id number] 2016 00:00:00 [facility] Problems Condition Name Condition Details Condition Category Status Onset Date Resolution Date Last Treatment Date Treating Clinician Comments Source Hearing loss Hearing loss Disease Active 11-07 00:00: 00 Patti gardner Memory loss - Not Controlled Memory loss - Not Controlled Disease Active 11-07 00:00: 00 Patti gardner Osteoporos is Osteoporos is Disease Active 11-07 00:00: 00 Patti gardner Chronic constipati on Chronic constipati on Disease Active 11-07 00:00: 00 Patti gardner [id number] HTN, goal below 150/90 Problem Active [facility] [id number] Memory impairment of gradual onset Problem Active [facility] [id number] Asymptomat ic hypertensi ve urgency Problem Active [facility] [id number] Body mass index (BMI) 37.0-37.9, adult Problem Active [facility] [id number] Mixed hyperlipid emia Problem Active [facility] [id number] Morbid (severe) obesity due to excess calories Problem Active [facility] [id number] Osteopenia , unspecifie d location Problem Active [facility] [id number] Prediabete s Problem Active [facility] [id number] Subclinica l hypothyroi dism Problem Active [facility] [id number] Fatigue, unspecifie d type Problem Active [facility] Social History Social Habit Start Date Stop Date Quantity Comments Source History of Tobacco Use [facility] Sexual orientation Xiang Gibbs - External History of Social function 2022-11-11 00:00:00 2022-11-11 00:00:00 Patti Gibbs - External Alcohol intake 2022-11-11 00:00:00 2022-11-11 00:00:00 Lifetime non-drinker (finding) Patti Gibbs - External Sex Assigned At 1950 00:00:00 1950 00:[birth year]:00 F Patti Gibbs - External Smoking Status Start Date Stop Date Source Never smoked tobacco Patti Gibbs - External Medications Ordered Medication Name Filled Medication Name Start Date Stop Date Current Medication? Ordering Clinician Indication Dosage Frequency Signature (SIG) Comments Components Source Alendronate Sodium 70 MG oral Tablet 11-11 13:09: 55 Yes Patti Freyjudemark Barnett Ashliecarla jj Calcium Carb-Cholec alciferol (Caltrate 600+D3) 600-20 MG-MCG oral Tablet 11-11 13:09: 55 Yes every 24 hours. Patti Sai gardner Levothyroxi ne Sodium 25 MCG oral Tablet 11-11 13:09: 55 Yes every 24 hours. Patti Sai gardner predniSONE (DELTASONE) 20 MG oral tablet 11-11 13:09: 55 Yes Patti Sai gardner Atorvastati n Calcium 20 MG oral Tablet 11-11 13:05: 27 11-11 00:00 :00 No Patti Musamark Barnett Ashliecarla jj Atorvastati n Calcium 20 MG oral Tablet 11-09 00:00: 00 Yes [id number] 20mg Take 1 tablet (20 mg total) by mouth daily. Patti gardner Atorvastati n Calcium 20 MG oral Tablet 11-07 08:01: 38 Yes Patti Sai Hwang l Alendronate Sodium 70 MG oral Tablet 11-07 08:01: 38 Yes Patti Sai gardner Calcium Carb-Cholec alciferol (Caltrate 600+D3) 600-20 MG-MCG oral Tablet 11-07 08:01: 38 Yes every 24 hours. Patti gardner Levothyroxi ne Sodium 25 MCG oral Tablet 11-07 08:01: 38 Yes every 24 hours. Patti gardner predniSONE (DELTASONE) 20 MG oral tablet 11-07 08:01: 38 Yes Patti Hwang l Lactulose 10 GM/15ML oral Solution 11-07 00:00: 00 Yes [id number] TAKE 30ML BY MOUTH ONCE DAILY. Patti Hwang l Lactulose 10 GM/15ML oral Solution 11-07 00:00: 00 Yes [id number] TAKE 30ML BY MOUTH ONCE DAILY. Patti gardner Lactulose 10 GM/15ML oral Solution 2023-0 9-14 00:00: 00 11-07 00:00 :00 No TAKE 30ML BY MOUTH ONCE DAILY Patti Gibbs - Externa l Alendronate Sodium 35 MG Alendronate Sodium 35 MG No 1{table t} Alendronat e Sodium 35 MG Atorvastati n Calcium 20 MG Atorvastati n Calcium 20 MG No 1{table t} QD Atorvastat in Calcium 20 MG Caltrate 600+D3 600-800 MG-UNIT Caltrate 600+D3 600-800 MG-UNIT No 1{table t_with_ a_meal} QD Caltrate 600+D3 600-800 MG-UNIT Levothyroxi ne Sodium 25 MCG Levothyroxi ne Sodium 25 MCG No QD Levothyrox ine Sodium 25 MCG Alendronate Sodium 35 MG Alendronate Sodium 35 MG No 1{table t} Alendronat e Sodium 35 MG Atorvastati n Calcium 20 MG Atorvastati n Calcium 20 MG No 1{table t} QD Atorvastat in Calcium 20 MG Caltrate 600+D3 600-800 MG-UNIT Caltrate 600+D3 600-800 MG-UNIT No 1{table t_with_ a_meal} QD Caltrate 600+D3 600-800 MG-UNIT Levothyroxi ne Sodium 25 MCG Levothyroxi ne Sodium 25 MCG No QD Levothyrox ine Sodium 25 MCG Immunizations Ordered Immunization Name Filled Immunization Name Date Status Comments Source Influenza vaccine, quadrivalent, adjuvanted, 65+ Unknown Completed Patti londono - External Influenza vaccine, quadrivalent, adjuvanted, 65+ Unknown Completed Patti londono - External Vital Signs Vital Name Observation Time Observation Value Comments S ource Systolic blood pressure 2022-11-11 18:12:00 153 mm[Hg] Patti londono - External Diastolic blood pressure 2022-11-11 18:12:00 73 mm[Hg] Patti londono - External Heart rate 2022-11-11 18:12:00 60 /min Solange Gibbs - External Body temperature 2022-11-11 18:12:00 36.67 Keily Patti Gibbs - External Respiratory rate 2022-11-11 18:12:00 16 /min Patti Gibbs - External Body height 2022-11-11 18:12:00 149.9 cm Marta ey Seybold - External Body weight 2022-11-11 18:12:00 83.008 kg Marta ey Seybold - External BMI 2022-11-11 18:12:00 36.96 kg/m2 Marta ey Seybold - External Systolic blood pressure 2022-11-07 12:55:00 136 mm[Hg] Patti Vigilo ld - External Diastolic blood pressure 2022-11-07 12:55:00 70 mm[Hg] Patti Freyybo ld - External Heart rate 2022-11-07 12:55:00 70 /min Isaiahse y Seybold - External Body temperature 2022-11-07 12:55:00 36.89 Keily Patti Seybold - External Respiratory rate 2022-11-07 12:55:00 14 /min Patti Seybold - External Body height 2022-11-07 12:55:00 149.9 cm Marta ey Seybold - External Body weight 2022-11-07 12:55:00 84.823 kg Marta ey Seybold - External BMI 2022-11-07 12:55:00 37.77 kg/m2 Marta ey Seybold - External Encounters Start Date/Time End Date/Time Encounter Type Admission Type Attending [facility] Facility Care Department Encounter ID Source 2023-01-02 14:07:00 Outpatient Lizet Bowers [facility] [id number] [facility] 2022-12-07 14:47:00 Outpatient Lizet Bowers [facility] [id number] [facility] 2022-12-02 11:06:00 Outpatient [facility] [id number] [facility] 2021-11-17 13:07:01 [facility] [id number] [facility] 2021-03-10 11:08:30 [facility] [id number] [facility] 2021-03-10 11:08:11 [facility] [id number] [facility] 2021-03-10 11:06:12 [facility] [id number] [facility] 2023-03-08 08:30:00 2023-03-08 08:30:00 Outpatient TO[facility] G[facility] [id number] [facility]23-[facility] 14:00:00 2023-02-10 14:00:00 Outpatient KVNG DEL REAL [id number] [facility] 2023-02-07 09:30:00 2023-02-07 09:30:00 Outpatient BELA DENSON [id number] [facility] 2023-01-06 00:00:00 2023-01-06 00:00:00 Outpatient BELA DENSON [id number] [facility] 2023-01-06 00:00:00 2023-01-06 00:00:00 Outpatient LIANA CRUZ [id number] [facility] 2022-12-19 00:00:00 2022-12-19 00:00:00 Outpatient BELA DENSON [id number] [facility] 2022-12-19 00:00:00 2022-12-19 00:00:00 Outpatient LIANA CRUZ [id number] [facility] 2022-12-01 08:30:00 2022-12-01 08:30:00 [id number] [facility] 14:00:00 2022-11-23 14:00:00 [facility] ERICH LIU [id number] [facility]22-[facility]-21 11:00:00 2022-11-21 11:00:00 [id number] [facility]11 14:35:00 2022-11-11 14:35:00 Outpatient LAB39 PATTI CASTELLANO [id number] [facility] 2022-11-11 13:15:00 2022-11-11 13:15:00 Outpatient KVNG DEL REAL PATTI CASTELLANO [id number] [facility] 2022-11-09 00:00:00 2022-11-09 00:00:00 Outpatient LIANA CRUZ [id number] [facility] 2022-11-07 09:15:00 2022-11-07 09:15:00 Outpatient LAB90 PATTI CASTELLANO [id number] [facility] 2022-11-07 08:15:00 2022-11-07 08:15:00 Outpatient LIANA CRUZ [id number] [facility] 2021-09-21 00:00:00 2021-09-21 00:00:00 (TEL) STLMLC STLMLC [id number] [facility] 2019-10-02 00:00:00 2019-10-02 00:00:00 [facility]patient [id number] 2019-08-27 00:00:00 2019-08-27 00:00:00 (TEL) STLMLC STLMLC [id number] [facility]
[2023-01-22] MEDS ORDERED: LACTULOSE 20 GM/30 ML UCUP ONE (23:24)
[2023-01-22 23:50] LABS: Absolute Lymphocytes (CBC) 2.1 K/uL (0.7-4.9); Hematocrit 39.3 % (36.0-45.0); MCV 92.4 fL (80-100); MPV 8.5 fL (7.6-11.3); Platelets 181 thou/uL (152-406); RBC Red Blood Cell Count 4.26 M/uL (3.86-4.86)
[2023-01-23 00:04] LABS: Albumin 3.6 g/dL (3.4-5.0); Bilirubin Total 0.3 mg/dL (0.2-1.0); Potassium 3.4 mEq/L (3.5-5.1); Protein, Total 8.3 g/dL (6.4-8.2)
--- NOTE | 2023-01-23 00:42 | EDPHYS ---
Physician Documentation [facility] Name: Elizabeth Degroot Age: 73 yrs Sex: Female : 1950 Arrival Date: 01/22/2023 Time: 22:59 Bed 8 Private MD: ED Physician Jaya Aly HPI: 01/22 23:15 This 73 yrs old Female presents to ER via EMS with complaints of Constipation. rt 23:15 Patient presents to the ED with constipation. States that she has not had a bowel rt movement about 3 days. She denies any pain, rectal bleeding. Denies nausea, vomiting. Denies any other complaints at this time, symptoms are mild in severity, no other aggravating or alleviating factors.. Historical: - Allergies: 23:14 No Known Allergies; vc1 - Immunization history:: Client reports receiving the 2nd dose of the Covid vaccine. - Social history:: Smoking status: Patient denies any tobacco usage or history of. - Family history:: not pertinent. ROS: 23:15 Constitutional: Negative for fever, chills, and weight loss, Cardiovascular: Negative rt for chest pain, palpitations, and edema, Respiratory: Negative for shortness of breath, cough, wheezing, and pleuritic chest pain, MS/Extremity: Negative for injury and deformity, Skin: Negative for injury, rash, and discoloration, Neuro: Negative for headache, weakness, numbness, tingling, and seizure, Psych: Negative for depression, anxiety, suicide ideation, homicidal ideation, and hallucinations, 23:15 Abdomen/GI: Positive for constipation, Negative for abdominal pain, nausea and vomiting, Exam: 23:15 Constitutional: This is a well developed, well nourished patient who is awake, alert, rt and in no acute distress. Head/Face: Normocephalic, atraumatic. Chest/axilla: Normal chest wall appearance and motion. Nontender with no deformity. No lesions are appreciated. Cardiovascular: Regular rate and rhythm with a normal S1 and S2. No gallops, murmurs, or rubs. Normal PMI, no JVD. No pulse deficits. Respiratory: Lungs have equal breath sounds bilaterally, clear to auscultation and percussion. No rales, rhonchi or wheezes noted. No increased work of breathing, no retractions or nasal flaring. Abdomen/GI: Soft, non-tender, with normal bowel sounds. No distension or tympany. No guarding or rebound. No evidence of tenderness throughout. Skin: Warm, dry with normal turgor. Normal color with no rashes, no lesions, and no evidence of cellulitis. MS/ Extremity: Pulses equal, no cyanosis. Neurovascular intact. Full, normal range of motion. Neuro: Awake and alert, GCS 15, oriented to person, place, time, and situation. Cranial nerves II-XII grossly intact. Motor strength 5/5 in all extremities. Sensory grossly intact. Cerebellar exam normal. Normal gait. Psych: Awake, alert, with orientation to person, place and time. Behavior, mood, and affect are within normal limits. Vital Signs: 23:11 BP 161 / 64; Pulse 69; Resp 17; Temp 97.9; Pulse Ox 96% on R/A; Weight 67.13 kg; Height vc1 4 ft. 11 in. ; Pain 0/10; 23:11 Body Mass Index 29.89 (67.13 kg, 149.86 cm) vc1 23:11 Pain Scale: Adult vc1 MDM: 23:06 Patient medically screened. rt 01/23 00:54 Differential Diagnosis Constipation, electrolyte disturbance. Data reviewed: vital rt signs, nurses notes, lab test result(s). I considered the following discharge prescriptions or medication management in the emergency department Medications were administered in the Emergency Department. See MAR. Test considered but Not performed: CT: Patient denies any abdominal pain, nausea, vomiting, states that she feels well, do not believe that CT scan is indicated at this time.. Counseling: I had a detailed discussion with the patient and/or guardian regarding the historical points, exam findings, and any diagnostic results supporting the discharge/admit diagnosis, lab results, the need for outpatient follow up, to return to the emergency department if symptoms worsen or persist or if there are any questions or concerns that arise at home. 01/22 23:06 Order name: CBC with Diff; Complete Time: 00:01 rt 01/22 23:06 Order name: CMP; Complete Time: 00:04 rt Administered Medications: 01/22 23:12 Drug: Lactulose PO 30 grams 45 ml PO once Volume: 45 ml; Route: PO; vc1 Disposition Summary: 01/23/23 00:41 Discharge Ordered Notes: Location: Home rt Problem: new rt Symptoms: have improved rt Condition: Stable rt Diagnosis - Constipation rt Followup: rt - With: Private Physician - When: 2 - 3 days - Reason: Discharge Instructions: - Discharge Summary Sheet rt - Constipation, Adult rt Forms: - Medication Reconciliation Form rt - Thank You Letter rt - Antibiotic Education rt - Prescription Opioid Use rt - Patient Portal Instructions rt - Leadership Thank You Letter rt Prescriptions: - Lactulose 10 gram/15 mL Oral solution - take 15 milliliter ORAL route once daily As needed for constipation; 150 rt milliliter; Refills: 0, Product Selection Permitted Signatures: Dispatcher [employer] Armida Elias RN RN vc1 Jaya Aly MD MD rt
--- NOTE | 2023-01-23 00:42 | ER ---
Nurse's Notes [facility] Name: Elizabeth Degroot Age: 73 yrs Sex: Female : 1950 Arrival Date: 01/22/2023 Time: 22:59 Bed 8 Private MD: Diagnosis: Constipation Presentation: 01/22 23:11 Chief complaint: EMS states: complaint of constipation for the last 4 days. No vc1 complaints of pain. Coronavirus screen: Vaccine status: Patient reports receiving the 2nd dose of the covid vaccine. At this time, the client does not indicate any symptoms associated with coronavirus-19. Ebola Screen: Patient negative for fever greater than or equal to 101.5 degrees Fahrenheit, and additional compatible Ebola Virus Disease symptoms Patient denies exposure to infectious person. Patient denies travel to an Ebola-affected area in the 21 days before illness onset. No symptoms or risks identified at this time. Initial Sepsis Screen: Does the patient meet any 2 criteria? No. Patient's initial sepsis screen is negative. Does the patient have a suspected source of infection? No. Patient's initial sepsis screen is negative. Risk Assessment: Do you want to hurt yourself or someone else? Patient reports no desire to harm self or others. Onset of symptoms was January 22, 2023. 23:11 Method Of Arrival: EMS: [facility] vc1 23:11 Acuity: MARTIN 4 vc1 Historical: - Allergies: 23:14 No Known Allergies; vc1 - Immunization history:: Client reports receiving the 2nd dose of the Covid vaccine. - Social history:: Smoking status: Patient denies any tobacco usage or history of. - Family history:: not pertinent. Screenin:15 [facility] ED Fall Risk Assessment (Adult) History of falling in the last 3 months, vc1 including since admission No falls in past 3 months (0 pts) Confusion or Disorientation No (0 pts) Intoxicated or Sedated No (0 pts) Impaired Gait No (0 pts) Mobility Assist Device Used No (0 pt) Altered Elimination No (0 pt) Score/Fall Risk Level 0 - 2 = Low Risk Oriented to surroundings, Maintained a safe environment, Educated pt \T\ family on fall prevention, incl call for assistance when getting out of bed. Abuse screen: Denies threats or abuse. Nutritional screening: No deficits noted. Tuberculosis screening: No symptoms or risk factors identified. Assessment: 01/23 01:23 Reassessment: Patient appears in no apparent distress at this time. Patient and/or jb4 family updated on plan of care and expected duration. Pain level reassessed. Patient is alert, oriented x 3, equal unlabored respirations, skin warm/dry/pink. Vital Signs: 01/22 23:11 BP 161 / 64; Pulse 69; Resp 17; Temp 97.9; Pulse Ox 96% on R/A; Weight 67.13 kg; Height vc1 4 ft. 11 in. ; Pain 0/10; 23:11 Body Mass Index 29.89 (67.13 kg, 149.86 cm) vc1 23:11 Pain Scale: Adult vc1 ED Course: 23:06 Patient arrived in ED. vc1 23:06 Jaya Aly MD is Attending Physician. rt 23:11 Armida Riley RN is Primary Nurse. vc1 23:14 Triage completed. vc1 23:14 Arm band placed on right wrist. vc1 23:15 Patient has correct armband on for positive identification. Bed in low position. Call vc1 light in reach. Pulse ox on. NIBP on. 01/23 01:23 No provider procedures requiring assistance completed. IV discontinued, intact, jb4 bleeding controlled, No redness/swelling at site. Pressure dressing applied. Administered Medications: 01/22 23:12 Drug: Lactulose PO 30 grams 45 ml PO once Volume: 45 ml; Route: PO; vc1 Medication: 23:15 VIS not applicable for this client. vc1 Outcome: 01/23 00:41 Discharge ordered by . rt 01:23 Discharged to home ambulatory, jb4 01:23 Condition: stable 01:23 Discharge instructions given to patient, Instructed on discharge instructions, follow up and referral plans. medication usage, Demonstrated understanding of instructions, follow-up care, medications, Prescriptions given X 1, 01:24 Patient left the ED. jb4 Signatures: Alek Sharma RN RN jb4 Armida Riley RN RN vc1 Jaya Aly MD MD rt
[2023-01-23 01:33] VITALS: BP 161/64; TEMP 97.9; O2SAT 96
== END 2023-01-23 01:24 | disposition home or self-care (01) ==
LOC: ER 22:59
DX: K59.00 Constipation, unspecified (principal)
CPT/HCPCS: 36415; 80053; 85025; 99284

== ENCOUNTER → 2023-02-19 | Emergency (ER) | payer OTHER ==
[~2023-02-19] MED LIST: BISACODYL 10 MG RECTAL SUPP ONE; LACTULOSE 20 GM/30 ML UCUP ONE; NA CHLORIDE 0.9% 1,000 ML ONE; NA CHLORIDE 0.9% 500 ML ONE; ONDANSETRON 4 MG/2 ML VIAL ONE
--- OUTSIDE RECORDS SUMMARY | 2023-02-19 20:39 | XMS REPORT | Continuity of Care Document ---
Author Name Unknown Address [address] [facility] [address]. [address] th[address] Address [address] [facility]. 1 495 [place] [address] Care Team Providers Care Asbestos Abatement Technician Name Role Phone Lizet Bowers Attending Clinician Unavail able Raza Fang Attending Clinician Unavailable TOBY GORE Attending Clinician Unavailable KVNG DEL REAL Attending Clinician BELA Tracey Attending Clinician Unavailable LIANA CRUZ Attending Clinician RM Tsang Attending Clinician Unavailable ERICH ALBERTO Attending Clinician U navailable [id number] Attending Clinician Unavailable LAB90 Attending Clinician Unavailable Payers Payer Name Policy Type Policy Number Effective Date Expirati on Date Source CIGNA 2 [id number] 2022 00:00:00 CIGNA 53 [id number] 2019 00:00:00 [facility] MEDICARE NOVITAS MB [id number] 2016 00:00:00 [facility] Problems Condition Name Condition Details Condition Category [...] Disease Active 11-07 00:00: 00 Patti gardner [id number] HTN, goal below 150/90 Problem Active [facility] [id number] Memory impairment of gradual onset Problem Active [facility] [id number] Asymptomat ic hypertensi ve urgency Problem Active [facility] [id number] Body mass index (BMI) 37.0-37.9, adult Problem Active [facility] [id number] Mixed hyperlipid emia Problem Active [facility] [id number] Morbid (severe) obesity due to excess calories Problem Active [facility] [id number] Osteopenia , unspecifie d location Problem Active [facility] [id number] Prediabete s Problem Active [facility] [id number] Subclinica l hypothyroi dism Problem Active [facility] [id number] Fatigue, unspecifie d type Problem Active [facility] Social History Social Habit Start Date Stop Date Quantity Comments Source Sexual orientation Xiang Gibbs - External History of Tobacco Use [facility] Alcohol intake 2022-11-11 00:00:00 2022-11-11 00:00:00 Lifetime non-drinker (finding) Patti Gibbs - External History of Social function 2022-11-11 00:00:00 2022-11-11 00:00:00 Patti Gibbs - External Sex Assigned At 1950 00:00:00 1950 00:00:00 Prabhakar Gibbs - External Smoking Status Start Date Stop Date Source Never smoked tobacco Patti Gibbs - External Medications Ordered Medication Name Filled Medication Name Start Date Stop Date Current Medication? Ordering Clinician Indication Dosage Frequency Signature (SIG) Comments Components Source Alendronate Sodium 70 MG oral Tablet 11-11 13:09: 55 Yes Patti Freyjudemark Hwang jj Calcium Carb-Cholec alciferol (Caltrate 600+D3) 600-20 MG-MCG oral Tablet 11-11 13:09: 55 Yes every 24 hours. Patti Freyjuedmark Ericka Daileycarla jj Levothyroxi ne Sodium 25 MCG oral Tablet 11-11 13:09: 55 Yes every 24 hours. Patti Sia gardner predniSONE (DELTASONE) 20 MG oral tablet 11-11 13:09: 55 Yes Patti Freyjacquelin Daileycarla jj Atorvastati n Calcium 20 MG oral Tablet 11-11 13:05: 27 11-11 00:00 :00 No Patti Freyjudemark Barnett Ashliecarla gardner Atorvastati n Calcium 20 MG oral Tablet 11-09 00:00: 00 Yes [id number] 20mg Take 1 tablet (20 mg total) by mouth daily. Patti gardner Atorvastati n Calcium 20 MG oral Tablet 11-07 08:01: 38 Yes Patti Sejacquelin Daileycarla jj Alendronate Sodium 70 MG oral Tablet 11-07 08:01: 38 Yes Patti Sai gardner Calcium Carb-Cholec alciferol (Caltrate 600+D3) 600-20 MG-MCG oral Tablet 11-07 08:01: 38 Yes every 24 hours. Patti Sai Daileycarla jj Levothyroxi ne Sodium 25 MCG oral Tablet 11-07 08:01: 38 Yes every 24 hours. Patti gardner predniSONE (DELTASONE) 20 MG oral tablet 11-07 08:01: 38 Yes Patti gardner Lactulose 10 GM/15ML oral Solution 11-07 00:00: 00 Yes [id number] TAKE 30ML BY MOUTH ONCE DAILY. Patti gardner Lactulose 10 GM/15ML oral Solution 11-07 00:00: 00 Yes [id number] TAKE 30ML BY MOUTH ONCE DAILY. Patti [...] blood pressure 2022-11-07 12:55:00 136 mm[Hg] Patti Freyybo ld - External Diastolic blood pressure 2022-11-07 [...] End Date/Time Encounter Type Admission Type Attending [facility] Care Facility Care Department Encounter ID Source 2023-01-02 14:07:00 Outpatient Lizet Bowers [facility] [id number] [facility] 2022-12-07 14:47:00 Outpatient Lizet Bowers [facility] [id number] [facility] 2022-12-02 11:06:00 Outpatient [facility] [id number] [facility] 2021-11-17 13:07:01 [facility] [id number] [facility] 2021-03-10 11:08:30 [facility] [id number] [facility] 2021-03-10 11:08:11 [facility] [id number] [facility] 2021-03-10 11:06:12 Outpatient Raza Fang [facility] [id number] [facility] 2023-03-08 08:30:00 2023-03-08 08:30:00 Outpatient TOBY GORE PATTI CASTELLANO [id number] [facility] 2023-02-10 14:00:00 2023-02-10 14:00:00 Outpatient KVNG DEL REAL [id number] [facility] 2023-02-07 09:30:00 2023-02-07 09:30:00 Outpatient BELA DENSON [id number] [facility] 2023-02-03 00:00:00 2023-02-03 00:00:00 Outpatient LIANA CRUZ [id number] [facility] 2023-01-23 00:00:00 2023-01-23 00:00:00 Outpatient LIANA CRUZ [id number] [facility] 2023-01-06 00:00:00 2023-01-06 00:00:00 Outpatient BELA DENSON [id number] [facility] 2023-01-06 00:00:00 2023-01-06 00:00:00 Outpatient LIANA CRUZ [id number] [facility] 2022-12-19 00:00:00 2022-12-19 00:00:00 Outpatient BELA DENSON [id number] [facility] 2022-12-19 00:00:00 2022-12-19 00:00:00 Outpatient LIANA CRUZ [id number] [facility] 2022-12-01 08:30:00 2022-12-01 08:30:00 Outpatient RM LEIGH [id number] [facility] 2022-11-23 14:00:00 2022-11-23 14:00:00 [id number] [facility] 11:00:00 2022-11-21 11:00:00 Outpatient RM LEIGH [facility] [id number] [facility] 2022-11-11 14:35:00 2022-11-11 14:35:00 Outpatient LAB39 [facility]AN[facility] [id number] [facility] 2022-11-11 13:15:00 2022-11-11 13:15:00 Outpatient DEL REAL KVNG PATTI CASTELLANO [id number] [facility] 2022-11-09 00:00:00 2022-11-09 00:00:00 Outpatient LIANA CRUZ [id number] [facility] 2022-11-07 09:15:00 2022-11-07 09:15:00 Outpatient LAB90 PATTI CASTELLANO [id number] [facility] 2022-11-07 08:15:00 2022-11-07 08:15:00 Outpatient LIANA CRUZ [id number] [facility] 2021-09-21 00:00:00 2021-09-21 00:00:00 (TEL) STLMLC STLMLC [id number] [facility] 2019-10-02 00:00:00 2019-10-02 00:00:00 Outpatient [facility] PDPFECZUWZ [id number] [facility] 2019-08-27 00:00:00 2019-08-27 00:00:00 (TEL) STLMLC STLMLC [id number] [facility]
[2023-02-19 21:38] LABS: Urine Bacteria <20 /HPF (<20); Urine Bilirubin NEGATIVE (Negative); Urine Blood Negative (Negative); Urine Clarity Turbid (Clear); Urine Color Light-Yellow (Yellow); Urine Glucose NEGATIVE (Negative); Urine Mucus Slight /HPF (None Seen); Urine Protein NEGATIVE (Negative); Urine RBC <5 /HPF (None Seen); Urine Urobilinogen Normal (Normal)
[2023-02-19 21:50] LABS: Albumin 3.6 g/dL (3.4-5.0); Bilirubin Total 0.3 mg/dL (0.2-1.0); Potassium 4.1 mEq/L (3.5-5.1); Protein, Total 8.2 g/dL (6.4-8.2)
[2023-02-19 22:02] LABS: Absolute Lymphocytes (CBC) 1.7 K/uL (0.7-4.9); Hematocrit 38.4 % (36.0-45.0); Lymphocytes % 32.9 % (15.3-44.8); MPV 8.6 fL (7.6-11.3); Platelets 168 thou/uL (152-406); RBC Red Blood Cell Count 4.13 M/uL (3.86-4.86)
--- NOTE | 2023-02-19 23:45 | ER ---
Nurse's Notes [facility] Name: Elizabeth Degroot Age: 73 yrs Sex: Female : 1950 Arrival Date: 02/19/2023 Time: 20:36 Bed 19 Private MD: Diagnosis: Abdominal pain, unspecified;Constipation, unspecified;Obesity, unspecified;UTI/ Urinary tract infection, site not specified Presentation: 02/19 20:48 Chief complaint: EMS states: constipation. Coronavirus screen: Client denies travel out cp4 of the [place] in the last 14 days. At this time, the client does not indicate any symptoms associated with coronavirus-19. Ebola Screen: Patient negative for fever greater than or equal to 101.5 degrees Fahrenheit, and additional compatible Ebola Virus Disease symptoms Patient denies exposure to infectious person. Patient denies travel to an Ebola-affected area in the 21 days before illness onset. No symptoms or risks identified at this time. Initial Sepsis Screen: Does the patient meet any 2 criteria? No. Patient's initial sepsis screen is negative. Does the patient have a suspected source of infection? No. Patient's initial sepsis screen is negative. Risk Assessment: Do you want to hurt yourself or someone else? Patient reports no desire to harm self or others. Onset of symptoms was February 2023. 20:48 Method Of Arrival: EMS: [facility] cp4 20:48 Acuity: MARTIN 3 cp4 Triage Assessment: 20:49 General: Appears in no apparent distress. Behavior is calm, cooperative, appropriate cp4 for age. Pain: Denies pain. Historical: - Allergies: 20:49 No Known Allergies; cp4 - Immunization history:: Adult Immunizations up to date. - Social history:: Smoking status: Patient denies any tobacco usage or history of. - Family history:: not pertinent. Screenin:50 [facility] ED Fall Risk Assessment (Adult) History of falling in the last 3 months, cp4 including since admission No falls in past 3 months (0 pts) Confusion or Disorientation No (0 pts) Intoxicated or Sedated No (0 pts) Impaired Gait No (0 pts) Mobility Assist Device Used No (0 pt) Altered Elimination No (0 pt) Score/Fall Risk Level 0 - 2 = Low Risk Oriented to surroundings, Maintained a safe environment, Educated pt \T\ family on fall prevention, incl call for assistance when getting out of bed, Assessed \T\ reinforced patient's understanding of fall precautions, Provided non-skid footwear, Hourly rounding (assess needs \T\ fall precautionary measures) done. Abuse screen: Denies threats or abuse. Nutritional screening: No deficits noted. Tuberculosis screening: No symptoms or risk factors identified. Assessment: 20:50 Reassessment: No changes from previously documented assessment. cp4 22:05 General: Appears in no apparent distress. comfortable, Behavior is calm, cooperative. lg3 Pain: Denies pain. Neuro: No deficits noted. Garvey Agitation-Sedation Scale (RASS): 0 - Alert and Calm Level of Consciousness is awake, alert, obeys commands, Oriented to person, place, time, situation. Cardiovascular: No deficits noted. Denies chest pain, shortness of breath, Capillary refill < 3 seconds Clubbing of nail beds is absent JVD is absent Patient's skin is warm and dry. Respiratory: No deficits noted. Airway is patent Respiratory effort is even, unlabored, Respiratory pattern is regular, symmetrical. GI: No deficits noted. Abdomen is round non-distended, obese, Bowel sounds present X 4 quads. Reports constipation. : No deficits noted. No signs and/or symptoms were reported regarding the genitourinary system. EENT: No deficits noted. No signs and/or symptoms were reported regarding the EENT system. Derm: No deficits noted. No signs and/or symptoms reported regarding the dermatologic system. Skin is intact, is healthy with good turgor, Skin is dry, Skin is normal, Skin temperature is warm. Musculoskeletal: No deficits noted. No signs and/or symptoms reported regarding the musculoskeletal system. Circulation, motion, and sensation intact. Range of motion: intact in all extremities. 23:40 Reassessment: Patient appears in no apparent distress at this time. No changes from lg3 previously documented assessment. Patient and/or family updated on plan of care and expected duration. Pain level reassessed. Patient is alert, oriented x 3, equal unlabored respirations, skin warm/dry/pink. Vital Signs: 20:48 BP 161 / 70; Pulse 72; Resp 18; Pulse Ox 96% ; cp4 22:05 BP 154 / 73; Pulse 68; Resp 17 S; Pulse Ox 97% on R/A; lg3 23:56 BP 156 / 76; Pulse 72; Resp 17 S; Pulse Ox 97% on R/A; lg3 ED Course: 20:37 Patient arrived in ED. lg3 20:47 Dafne Flanagan is Primary Nurse. cp4 20:49 Triage completed. cp4 20:49 Arm band placed on right wrist. Patient placed in the treatment room, on a stretcher. cp4 20:50 Bed in low position. Call light in reach. Side rails up X 1. cp4 20:57 Alfredito Valle MD is Attending Physician. stan 21:23 Inserted saline lock: 20 gauge in right antecubital area, using aseptic technique. lg3 Blood collected. 21:23 CBC with Diff Sent. lg3 21:23 CMP Sent. lg3 21:23 Lipase Sent. lg3 21:23 Urinalysis w/ reflexes Sent. lg3 22:05 Report received from VALERIE Leos. Client placed on continuous cardiac and pulse lg3 oximetry monitoring. NIBP monitoring applied. Door closed. Noise minimized. Warm blanket given. 22:05 Patient maintains SpO2 saturation greater than 95% on room air. lg3 23:25 Abdomen In Process Unspecified. EDMS 23:45 Ramez Frank MD is Referral Physician. [facility] 23:57 No provider procedures requiring assistance completed. IV discontinued, intact, lg3 bleeding controlled, No redness/swelling at site. Pressure dressing applied. Administered Medications: 21:31 Drug: NS 0.9% IV 1000 ml IV at 1 bolus Per protocol; 1000 mL bolus Route: IV; Rate: 1 cp4 bolus; Site: right antecubital; 22:29 Follow up: Response: No adverse reaction; IV Status: Completed infusion; IV Intake: lg3 1000ml 21:31 Drug: Ondansetron IVP 4 mg IVP once; over 2 minutes Route: IVP; Site: right antecubital;cp4 22:29 Follow up: Response: No adverse reaction lg3 21:31 Drug: Lactulose PO 30 grams 45 ml PO once Volume: 45 ml; Route: PO; cp4 22:29 Follow up: Response: No adverse reaction lg3 21:41 Not Given (Patient Refused): dulcolaxsuppository 10 mg MI once cp4 Medication: 20:50 VIS not applicable for this client. cp4 Intake: 22:29 IV: 1000ml; Total: 1000ml. lg3 Outcome: 23:45 Discharge ordered by . stan 23:57 Discharged to home ambulatory, lg3 23:57 Condition: stable 23:57 Discharge instructions given to patient, Instructed on discharge instructions, follow up and referral plans. medication usage, Demonstrated understanding of instructions, follow-up care, medications, Prescriptions given X 3, 23:58 Patient left the ED. lg3 Signatures: Dispatcher [employer] EDAlfredito Tobias MD MD cha Able, Lacie, RN RN lg3 Dafne Flanagan 4
--- NOTE | 2023-02-19 23:45 | EDPHYS ---
Physician Documentation [facility] Name: Elizabeth Degroot Age: 73 yrs Sex: Female : 1950 Arrival Date: 02/19/2023 Time: 20:36 Bed 19 Private MD: ED Physician Alfredito Valle HPI: 02/19 21:38 This 73 yrs old Female presents to ER via EMS with complaints of Constipation. stan 21:38 The patient presents with abdominal pain abdominal distention. Onset: The stan symptoms/episode began/occurred 3 day(s) ago. The symptoms do not radiate. Associated signs and symptoms: Pertinent positives: constipation. The symptoms are described as crampy. Modifying factors: The symptoms are alleviated by nothing, the symptoms are aggravated by movement. Severity of pain: At its worst the pain was mild in the emergency department the pain is unchanged. The patient has experienced similar episodes in the past, several times. Historical: - Allergies: 20:49 No Known Allergies; cp4 - Immunization history:: Adult Immunizations up to date. - Social history:: Smoking status: Patient denies any tobacco usage or history of. - Family history:: not pertinent. ROS: 21:38 Constitutional: Negative for fever, chills, and weight loss, Eyes: Negative for injury, stan pain, redness, and discharge, ENT: Negative for injury, pain, and discharge, Neck: Negative for injury, pain, and swelling, Cardiovascular: Negative for chest pain, palpitations, and edema, Respiratory: Negative for shortness of breath, cough, wheezing, and pleuritic chest pain, Back: Negative for injury and pain, : Negative for injury, bleeding, discharge, and swelling, MS/Extremity: Negative for injury and deformity, Skin: Negative for injury, rash, and discoloration, Neuro: Negative for headache, weakness, numbness, tingling, and seizure, Psych: Negative for depression, anxiety, suicide ideation, homicidal ideation, and hallucinations, Allergy/Immunology: Negative for hives, rash, and allergies, Endocrine: Negative for neck swelling, polydipsia, polyuria, polyphagia, and marked weight changes, Hematologic/Lymphatic: Negative for swollen nodes, abnormal bleeding, and unusual bruising, 21:38 Abdomen/GI: Positive for abdominal pain, constipation, of the right upper quadrant, left upper quadrant, right lower quadrant and left lower quadrant, Exam: 21:38 Constitutional: This is a well developed, well nourished patient who is awake, alert, stan and in no acute distress. Head/Face: Normocephalic, atraumatic. Eyes: Pupils equal round and reactive to light, extra-ocular motions intact. Lids and lashes normal. Conjunctiva and sclera are non-icteric and not injected. Cornea within normal limits. Periorbital areas with no swelling, redness, or edema. ENT: Nares patent. No nasal discharge, no septal abnormalities noted. Tympanic membranes are normal and external auditory canals are clear. Oropharynx with no redness, swelling, or masses, exudates, or evidence of obstruction, uvula midline. Mucous membranes moist. Neck: Trachea midline, no thyromegaly or masses palpated, and no cervical lymphadenopathy. Supple, full range of motion without nuchal rigidity, or vertebral point tenderness. No Meningismus. Chest/axilla: Normal chest wall appearance and motion. Nontender with no deformity. No lesions are appreciated. Cardiovascular: Regular rate and rhythm with a normal S1 and S2. No gallops, murmurs, or rubs. Normal PMI, no JVD. No pulse deficits. Respiratory: Lungs have equal breath sounds bilaterally, clear to auscultation and percussion. No rales, rhonchi or wheezes noted. No increased work of breathing, no retractions or nasal flaring. Back: No spinal tenderness. No costovertebral tenderness. Full range of motion. Female : Normal external genitalia. Skin: Warm, dry with normal turgor. Normal color with no rashes, no lesions, and no evidence of cellulitis. MS/ Extremity: Pulses equal, no cyanosis. Neurovascular intact. Full, normal range of motion. Neuro: Awake and alert, GCS 15, oriented to person, place, time, and situation. Cranial nerves II-XII grossly intact. Motor strength 5/5 in all extremities. Sensory grossly intact. Cerebellar exam normal. Normal gait. Psych: Awake, alert, with orientation to person, place and time. Behavior, mood, and affect are within normal limits. 21:38 Abdomen/GI: Inspection: abdomen appears normal, Bowel sounds: normal, Palpation: abdomen is soft and non-tender, Liver: no appreciated palpable abnormalities, Hernia: not appreciated, Vital Signs: 20:48 BP 161 / 70; Pulse 72; Resp 18; Pulse Ox 96% ; cp4 22:05 BP 154 / 73; Pulse 68; Resp 17 S; Pulse Ox 97% on R/A; lg3 23:56 BP 156 / 76; Pulse 72; Resp 17 S; Pulse Ox 97% on R/A; lg3 MDM: 20:57 Patient medically screened. stan 21:55 Differential diagnosis: appendicitis, bowel obstruction, Cholelithiasis, stan diverticulitis, gastritis, non-specific abd pain, pancreatitis, Peptic Ulcer Disease, Pyelonephritis, urinary tract infection. Data reviewed: vital signs, nurses notes, lab test result(s), radiologic studies, CT scan. Consideration of Admission/Observation Escalation of care including admission/observation considered. I considered the following discharge prescriptions or medication management in the emergency department Medications were administered in the Emergency Department. See MAR. Independent interpretation of the following test(s) in the Emergency Department CT Scan: My interpretation is ct abd/pelvis. Test considered but Not performed: EKG: no ekg necessary. Care significantly affected by the following chronic conditions: Hypertension, Obesity. 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 02/19 20:58 Order name: CBC with Diff; Complete Time: 23:12 [facility] 02/19 20:58 Order name: CMP; Complete Time: 23:12 [facility] 02/19 20:58 Order name: Lipase; Complete Time: 23:12 [facility] 02/19 20:58 Order name: Urinalysis w/ reflexes; Complete Time: 23:12 [facility] 02/19 22:37 Order name: Abdomen EDMS 02/19 20:58 Order name: IV Saline Lock; Complete Time: 21:23 [facility] 02/19 20:58 Order name: Labs collected and sent; Complete Time: 21:23 [facility] Administered Medications: 21:31 Drug: NS 0.9% IV 1000 ml IV at 1 bolus Per protocol; 1000 mL bolus Route: IV; Rate: 1 cp4 bolus; Site: right antecubital; 22:29 Follow up: Response: No adverse reaction; IV Status: Completed infusion; IV Intake: lg3 1000ml 21:31 Drug: Ondansetron IVP 4 mg IVP once; over 2 minutes Route: IVP; Site: right antecubital;cp4 22:29 Follow up: Response: No adverse reaction lg3 21:31 Drug: Lactulose PO 30 grams 45 ml PO once Volume: 45 ml; Route: PO; cp4 22:29 Follow up: Response: No adverse reaction lg3 21:41 Not Given (Patient Refused): dulcolaxsuppository 10 mg KS once cp4 Disposition Summary: 02/19/23 23:45 Discharge Ordered Notes: Location: Home stan Problem: new stan Symptoms: have improved stan Condition: Stable stan Diagnosis - Abdominal pain, unspecified stan - Constipation, unspecified stan - Obesity, unspecified stan - UTI/ Urinary tract infection, site not specified stan Followup: stan - With: Private Physician - When: 2 - 3 days - Reason: Recheck today's complaints, Continuance of care, Re-evaluation by your physician Followup: stan - With: Ramez Frank MD - When: 2 - 3 days - Reason: Recheck today's complaints, Re-evaluation by your physician Discharge Instructions: - Discharge Summary Sheet stan - Abdominal Pain, Adult stan - Constipation, Adult stan - Obesity, Adult stan - Urinary Tract Infection, Adult stan - Constipation, Adult, Ppyr-kp-Logp stan - Urinary Tract Infection, Adult, Nril-gx-Kdvc stan - Obesity, Adult, Lesc-hz-Lnnw [facility] Forms: - Medication Reconciliation Form [facility] - Thank You Letter [facility] - Antibiotic Education [facility] - Prescription Opioid Use [facility] - Patient Portal Instructions [facility] - Leadership Thank You Letter [facility] Prescriptions: - Dulcolax (bisacodyl) 10 mg Rectal suppository - insert 1 suppository RECTAL route every 12 hours for 5 days; 10 suppository; [facility] Refills: 0, Product Selection Permitted - Lactulose 10 gram/15 mL Oral Solution - take 30 milliliters ORAL route once daily; 300 milliliter; Refills: 0, Product [facility] Selection Permitted - Bactrim DS 800-160 mg Oral tablet - take 1 tablet ORAL route every 12 hours for 5 days; 10 tablet; Refills: 0, [facility] Product Selection Permitted Signatures: Dispatcher [employer] Alfredito Howell MD MD cha Potter, Christina 4 Lilian Johansen RN lg3 Corrections: (The following items were deleted from the chart) 22:37 20:59 Abdomen Pelvis W Con+CT.RAD.BRZ ordered. EDMS EDMS
[2023-02-20 01:53] VITALS: BP 156/76; O2SAT 97
--- NOTE | 2023-02-20 08:39 | RAD REPORT ---
EXAM DESCRIPTION: CT ABDOMEN PELVIS WITHOUT IV CONTRAST CLINICAL HISTORY: ABD PAIN COMPARISON: None. TECHNIQUE: CT ABDOMEN PELVIS WITHOUT IV CONTRAST on 02/19/2023 8:58 PM [employer] This exam was performed according to our departmental dose-optimization program, which includes autom ated exposure control, adjustment of the mA and/or kV according to patient size and/or use of iterati ve reconstruction technique. FINDINGS: Lower lungs are clear. Abdomen: The liver is normal in appearance. There is no biliary dilatation. There is small hiatal her hilda. Gallbladder is normal in appearance. The pancreas and spleen are normal in appearance. Adrenal g lands are normal. Kidneys are mildly atrophic. Abdominal aorta is moderately calcified without aneurysm. There is no free air. There is no retroperi toneal adenopathy. Pelvis: There is no bowel obstruction. Urinary bladder is unremarkable. There is no free fluid. The u terus is normal in size. Appendix is not clearly seen. Skeleton: There are no acute osseous findings. No suspicious bony lesions. IMPRESSION: No acute process. Electronically signed by: Tima Payne MD 02/19/2023 11:38 PM [employer] Due to temporary technical issues with the PACS/Fluency reporting system, reports are being signed by the in house radiologist without review as a courtesy to ensure prompt reporting. The interpreting r adiologist is fully responsible for the content of the report.
== END ==
LOC: ER 20:36
DX: K59.00 Constipation, unspecified (principal); N39.0 Urinary tract infection, site not specified; E66.9 Obesity, unspecified
CPT/HCPCS: 96361; 85025; 81001; 36415; 83690; 80053; 74176; 96374; 99285; J2405; J7030